=== PATIENT | female | born 1945 | race Caucasian/White ===

== ENCOUNTER → 2017-04-25 | Outpatient (CLI) | payer OTHER ==
[~2017-04-25] MED LIST: ACET325 PO; ACIDOPHILUS1 EAC1 PO; ALBU3IS INH; ALBU90OI INH; ALBU90OI61 INH; ALIS150T PO; AMIT10 PO; AMLO10 PO; AMLO5 PO; AMOCLA875 PO; ASPI325EC; ASPI81CH PO; ATEN100 PO; ATEN25 PO; ATEN50; ATEN50 PO; ATOR10; ATOR40TA PO; ATOR80 PO; Augmentin 875-1 EACH PO; B-12500 MCG PO; BACITO TOP; Bactrim Ds Tab1 EACH PO; CALCAVITD PO; CARI350 PO; CARV3.125 PO; CEPH500 PO; CHOL10002 PO; CLON.1; CLON.1 PO; CLON.2 PO; CLOP75; CLOP75 PO; CYAN1000 PO; CYAN500 PO; CYCL10 PO; Cilostazol50 MG PO; DILT120; DILT240 PO; DOCU100 PO; DULERA 200 MCG/13 GM INH; ERGO50000 PO; ESCI5 PO; ESOM20; FENTANYL PATCH TOP; FOLI1 PO; FURO20 PO; Ferrous Sulfat325 MG PO; GABA300; GABA600 PO; GAVILAX17 GM PO; HUMALOG KW200 UNIT/1 SC; HYDACE10B PO; HYDACE5; HYDACE5 PO; HYDR1TAB94 PO; K-Dur10 MEQ PO; LOSA25 PO; LOSA50 PO; MAGNESIUM GLUCONATE PO; META800 PO; METAMUCIL660 GM PO; METF500; METF500 PO; METO25 PO; METO25ER PO; NAPR500 PO; NARCAN4 MG; NEBI10 PO; NICO14TP TOP; NITR.2TP TOP; NITR.4SL SL; Norco 5-325 Ta1 EACH PO; Nystatin15 GM TOP; ONDA4ODT MM; OXYC10ER PO; OXYC10TA19 PO; OXYC5; OXYC5 PO; PANT40 PO; PENVK500 PO; POTCHL10ER PO; POTCHL20ER PO; QUIN10; ROSU10TA PO; SANTYL30 GM TOP; SENN187 PO; SOMA250 MG; TICA90TA PO; TIOT18 IH; TIOT18 INH; TORSE20 PO; TRAM50 PO; TRIBENZOR PO; Tylenol325 MG PO; VALS80; VALS80 PO; VIT D3 PO; VITA25000 PO; Ventolin Soln3 ML INH; XARELTO15 MG PO; Zanaflex2 M1 PO
[2017-04-25 17:18] LABS: BASOPHILS ABSOLUTE AUTO 0.03 K/mm3 (0.00-0.23); BASOPHILS PERCENT AUTO 0 % (0-2); EOSINOPHILS ABSOLUTE AUTO 0.11 K/mm3 (0.00-0.68); EOSINOPHILS PERCENT AUTO 1 % (0-6); Hematocrit 36.5 % (33.0-51.0); IMMATURE GRAN ABSOLUTE AUTO 0.03 K/mm3 (0.00-0.10); IMMATURE GRAN PERCENT AUTO 0 % (0-1); LYMPHOCYTES ABSOLUTE AUTO 1.49 K/mm3 (0.84-5.20); LYMPHOCYTES PERCENT AUTO 17 % (21-46); MONOCYTES ABSOLUTE AUTO 0.64 K/mm3 (0.16-1.47); MONOCYTES PERCENT AUTO 7 % (4-13); Mean Corpuscular HGB 34.2 pg (26.0-34.0); Mean Corpuscular HGB Conc 32.9 g/dL (31.5-36.5); Mean Corpuscular Volume 104 fL (80-100); NEUTROPHILS ABSOLUTE AUTO 6.54 K/mm3 (1.96-9.15); NEUTROPHILS PERCENT AUTO 74 % (41-73); Platelet Count 328 K/mm3 (150-400); RDW Coefficient Variation 12.3 % (11.7-14.2); RDW Standard Deviation 47.1 fL (35.1-46.3); Red Blood Cell Count 3.51 M/mm3 (3.80-5.20); White Blood Cell Count 8.84 K/mm3 (4.00-11.30)
[2017-04-25 18:15] LABS: Alanine Aminotransfer (ALT/SGP 14 U/L (12-78); Albumin, Blood 3.9 g/dL (3.4-5.0); Albumin/Globulin Ratio 1.1 (0.8-1.8); Alk Phos 54 U/L (50-136); Anion Gap 10 mmol/L (6-16); Aspartate Aminotrans (AST/SGOT 14 U/L (12-37); Bilirubin, Total 0.3 mg/dL (0.1-1.0); Blood Urea Nitrogen 18 mg/dL (8-24); Bun/Creatinine Ratio 30.6 (12.0-20.0); CO2, Blood 25 mmol/L (21-32); Calcium, Blood 9.6 mg/dL (8.5-10.1); Chloride, Blood 105 mmol/L (98-108); Creatinine, Blood 0.59 mg/dL (0.40-1.00); Globulin, Blood 3.5 g/dL (2.2-4.0); Glomerular Filtration Rate >60 (60-); Glucose, Blood 101 mg/dL (70-99); Potassium, Blood 3.9 mmol/L (3.5-5.5); Sodium, Blood 140 mmol/L (136-145); Total Protein, Blood 7.4 g/dL (6.4-8.2)
== END | disposition home or self-care (01) ==
LOC: LAB SHORT 16:36
PROVIDERS: Nurse Practitioner Primary Care
DX: E11.59 Type 2 diabetes mellitus with other circulatory complications (principal); R30.0 Dysuria; R31.9 Hematuria, unspecified
CPT/HCPCS: 80053; 82043; 83036; 85025; 87086

== ENCOUNTER → 2017-07-04 | Outpatient (CLI) | payer OTHER ==
[~2017-07-04] MED LIST changes: -ACIDOPHILUS1 EAC1 PO; -ALBU3IS INH; -ALBU90OI61 INH; -Augmentin 875-1 EACH PO; -B-12500 MCG PO; -ESCI5 PO; -FENTANYL PATCH TOP; +FERR325 PO; -Ferrous Sulfat325 MG PO; -GABA600 PO; -GAVILAX17 GM PO; -HUMALOG KW200 UNIT/1 SC; -METAMUCIL660 GM PO; -METO25 PO; -NARCAN4 MG; -Nystatin15 GM TOP; -ONDA4ODT MM; -POTCHL20ER PO; -SANTYL30 GM TOP; -SENN187 PO; -XARELTO15 MG PO; -Zanaflex2 M1 PO
== END ==
LOC: LAB SHORT 18:05 → LAB 18:05
DX: Z47.81 Encounter for orthopedic aftercare following surgical amputation (principal); Z89.432 Acquired absence of left foot
CPT/HCPCS: 87070; 87077; 87186; 87205

== ENCOUNTER 2017-07-16 06:57 | Inpatient (IN) | payer OTHER ==
[~2017-07-16] VITALS: Ht 160 cm; Wt 60.7 kg
[~2017-07-16 06:57] MED LIST changes: +ALBU3IS INH; +ALBU90OI61 INH; +B-12500 MCG PO; -FERR325 PO; +Ferrous Sulfat325 MG PO; +GABA400 PO; +NARCAN4 MG
[2017-07-16] MEDS ORDERED: Augmentin 875-1 EACH PO (07:34)
[2017-07-17 04:51] LABS: Anion Gap 9 mmol/L (6-16); Blood Urea Nitrogen 7 mg/dL (8-24); Bun/Creatinine Ratio 13.3 (12.0-20.0); CO2, Blood 26 mmol/L (21-32); Calcium, Blood 8.2 mg/dL (8.5-10.1); Chloride, Blood 104 mmol/L (98-108); Creatinine, Blood 0.53 mg/dL (0.40-1.00); Glomerular Filtration Rate >60 (60-); Glucose, Blood 94 mg/dL (70-99); Potassium, Blood 3.9 mmol/L (3.5-5.5); Sodium, Blood 139 mmol/L (136-145)
[2017-07-17 05:44] LABS: BASOPHILS ABSOLUTE AUTO 0.02 K/mm3 (0.00-0.23); BASOPHILS PERCENT AUTO 0 % (0-2); EOSINOPHILS ABSOLUTE AUTO 0.06 K/mm3 (0.00-0.68); EOSINOPHILS PERCENT AUTO 1 % (0-6); Hemoglobin 10.2 g/dL (11.5-16.0); IMMATURE GRAN ABSOLUTE AUTO 0.02 K/mm3 (0.00-0.10); IMMATURE GRAN PERCENT AUTO 0 % (0-1); LYMPHOCYTES ABSOLUTE AUTO 0.87 K/mm3 (0.84-5.20); LYMPHOCYTES PERCENT AUTO 11 % (21-46); MONOCYTES ABSOLUTE AUTO 0.44 K/mm3 (0.16-1.47); MONOCYTES PERCENT AUTO 6 % (4-13); Mean Corpuscular HGB 32.6 pg (26.0-34.0); Mean Corpuscular HGB Conc 30.9 g/dL (31.5-36.5); Mean Corpuscular Volume 105 fL (80-100); Mean Platelet Volume 9.1 fL (9.1-12.4); NEUTROPHILS ABSOLUTE AUTO 6.38 K/mm3 (1.96-9.15); NEUTROPHILS PERCENT AUTO 82 % (41-73); Platelet Count 256 K/mm3 (150-400); RDW Coefficient Variation 12.8 % (11.7-14.2); RDW Standard Deviation 49.4 fL (35.1-46.3); Red Blood Cell Count 3.13 M/mm3 (3.80-5.20); White Blood Cell Count 7.79 K/mm3 (4.00-11.30)
[2017-07-17 06:04] LABS: Alanine Aminotransfer (ALT/SGP 15 U/L (12-78); Albumin, Blood 3.2 g/dL (3.4-5.0); Albumin/Globulin Ratio 0.9 (0.8-1.8); Alk Phos 57 U/L (50-136); Anion Gap 9 mmol/L (6-16); Aspartate Aminotrans (AST/SGOT 32 U/L (12-37); Bilirubin, Total 0.3 mg/dL (0.1-1.0); Blood Urea Nitrogen 6 mg/dL (8-24); Bun/Creatinine Ratio 10.6 (12.0-20.0); CO2, Blood 27 mmol/L (21-32); Calcium, Blood 8.8 mg/dL (8.5-10.1); Chloride, Blood 104 mmol/L (98-108); Creatinine, Blood 0.56 mg/dL (0.40-1.00); Globulin, Blood 3.7 g/dL (2.2-4.0); Glomerular Filtration Rate >60 (60-); Glucose, Blood 100 mg/dL (70-99); Sodium, Blood 140 mmol/L (136-145); Total Protein, Blood 6.9 g/dL (6.4-8.2)
[2017-07-19 04:40] LABS: BASOPHILS ABSOLUTE AUTO 0.02 K/mm3 (0.00-0.23); BASOPHILS PERCENT AUTO 0 % (0-2); EOSINOPHILS PERCENT AUTO 3 % (0-6); Hemoglobin 8.5 g/dL (11.5-16.0); IMMATURE GRAN ABSOLUTE AUTO 0.04 K/mm3 (0.00-0.10); IMMATURE GRAN PERCENT AUTO 1 % (0-1); LYMPHOCYTES ABSOLUTE AUTO 1.13 K/mm3 (0.84-5.20); LYMPHOCYTES PERCENT AUTO 16 % (21-46); MONOCYTES ABSOLUTE AUTO 0.71 K/mm3 (0.16-1.47); MONOCYTES PERCENT AUTO 10 % (4-13); Mean Corpuscular HGB 32.2 pg (26.0-34.0); Mean Corpuscular HGB Conc 31.5 g/dL (31.5-36.5); Mean Platelet Volume 9.5 fL (9.1-12.4); NEUTROPHILS ABSOLUTE AUTO 4.98 K/mm3 (1.96-9.15); NEUTROPHILS PERCENT AUTO 70 % (41-73); Platelet Count 232 K/mm3 (150-400); RDW Coefficient Variation 12.9 % (11.7-14.2); RDW Standard Deviation 48.6 fL (35.1-46.3); Red Blood Cell Count 2.64 M/mm3 (3.80-5.20); White Blood Cell Count 7.08 K/mm3 (4.00-11.30)
[2017-07-19 05:00] LABS: Anion Gap 7 mmol/L (6-16); Blood Urea Nitrogen 9 mg/dL (8-24); Bun/Creatinine Ratio 16.8 (12.0-20.0); CO2, Blood 31 mmol/L (21-32); Calcium, Blood 8.5 mg/dL (8.5-10.1); Chloride, Blood 103 mmol/L (98-108); Creatinine, Blood 0.54 mg/dL (0.40-1.00); Glomerular Filtration Rate >60 (60-); Glucose, Blood 122 mg/dL (70-99); Potassium, Blood 3.4 mmol/L (3.5-5.5); Sodium, Blood 141 mmol/L (136-145)
[2017-07-19 05:03] LABS: Mean Corpuscular Volume 102 fL (80-100)
[2017-07-20 04:53] LABS: Hematocrit 27.3 % (33.0-51.0); Hemoglobin 8.5 g/dL (11.5-16.0); Mean Corpuscular HGB 32.4 pg (26.0-34.0); Mean Corpuscular HGB Conc 31.1 g/dL (31.5-36.5); Mean Corpuscular Volume 104 fL (80-100); Mean Platelet Volume 9.1 fL (9.1-12.4); Platelet Count 247 K/mm3 (150-400); RDW Standard Deviation 48.7 fL (35.1-46.3); Red Blood Cell Count 2.62 M/mm3 (3.80-5.20)
[2017-07-20 05:11] LABS: Anion Gap 6 mmol/L (6-16); Blood Urea Nitrogen 12 mg/dL (8-24); Bun/Creatinine Ratio 17.2 (12.0-20.0); CO2, Blood 35 mmol/L (21-32); Calcium, Blood 8.6 mg/dL (8.5-10.1); Chloride, Blood 100 mmol/L (98-108); Glomerular Filtration Rate >60 (60-); Glucose, Blood 113 mg/dL (70-99); Potassium, Blood 3.5 mmol/L (3.5-5.5); Sodium, Blood 141 mmol/L (136-145)
[2017-07-20 05:44] LABS: Percent Saturation 7.1 % (15.0-50.0)
[2017-07-23 05:27] LABS: BASOPHILS ABSOLUTE AUTO 0.05 K/mm3 (0.00-0.23); BASOPHILS PERCENT AUTO 0 % (0-2); EOSINOPHILS ABSOLUTE AUTO 0.24 K/mm3 (0.00-0.68); EOSINOPHILS PERCENT AUTO 2 % (0-6); Hematocrit 31.3 % (33.0-51.0); Hemoglobin 9.8 g/dL (11.5-16.0); IMMATURE GRAN ABSOLUTE AUTO 0.08 K/mm3 (0.00-0.10); IMMATURE GRAN PERCENT AUTO 1 % (0-1); LYMPHOCYTES ABSOLUTE AUTO 1.87 K/mm3 (0.84-5.20); LYMPHOCYTES PERCENT AUTO 16 % (21-46); MONOCYTES ABSOLUTE AUTO 0.96 K/mm3 (0.16-1.47); MONOCYTES PERCENT AUTO 8 % (4-13); Mean Corpuscular HGB 31.5 pg (26.0-34.0); Mean Corpuscular HGB Conc 31.3 g/dL (31.5-36.5); NEUTROPHILS ABSOLUTE AUTO 8.82 K/mm3 (1.96-9.15); NEUTROPHILS PERCENT AUTO 73 % (41-73); Platelet Count 336 K/mm3 (150-400); RDW Standard Deviation 48.1 fL (35.1-46.3); Red Blood Cell Count 3.11 M/mm3 (3.80-5.20); White Blood Cell Count 12.02 K/mm3 (4.00-11.30)
[2017-07-23 05:28] LABS: Mean Corpuscular Volume 101 fL (80-100)
[2017-07-23 05:32] LABS: Anion Gap 8 mmol/L (6-16); Blood Urea Nitrogen 20 mg/dL (8-24); Bun/Creatinine Ratio 22.4 (12.0-20.0); CO2, Blood 32 mmol/L (21-32); Calcium, Blood 9.2 mg/dL (8.5-10.1); Chloride, Blood 98 mmol/L (98-108); Creatinine, Blood 0.89 mg/dL (0.40-1.00); Glomerular Filtration Rate >60 (60-); Glucose, Blood 96 mg/dL (70-99); Potassium, Blood 3.6 mmol/L (3.5-5.5); Sodium, Blood 138 mmol/L (136-145)
[2017-07-24] MEDS ORDERED: METO25 PO (14:46)
[2017-07-24] MEDS ORDERED: ESCI5 PO (14:48)
[2017-07-24] MEDS ORDERED: ATOR80 PO (14:48)
[2017-07-24] MEDS ORDERED: ACIDOPHILUS1 EAC1 PO (14:48)
[2017-07-24] MEDS ORDERED: METAMUCIL660 GM PO (14:49)
[2017-07-24] MEDS ORDERED: XARELTO15 MG PO (14:49)
== END 2017-07-24 14:44 | DRG 272 ==
LOC: MHTC 06:57 → ICUW 12:34 → MHTC 12:34 → ICUW 07-17 12:48 → MEDS 07-20 13:21
PROVIDERS: Hospitalist; Internal Medicine; Internal Medicine Interventional Cardiology
PROC: 04CL3ZZ Extirpation of Matter from Left Femoral Artery, Percutaneous Approach (ICD-10-PCS; principal; 2017-07-16)
PROC: 047D34Z Dilation of Left Common Iliac Artery with Drug-eluting Intraluminal Device, Percutaneous Approach (ICD-10-PCS; 2017-07-16)
PROC: 04CU3ZZ Extirpation of Matter from Left Peroneal Artery, Percutaneous Approach (ICD-10-PCS; 2017-07-16)
PROC: 04CY3ZZ Extirpation of Matter from Lower Artery, Percutaneous Approach (ICD-10-PCS; 2017-07-16)
PROC: 047L34Z Dilation of Left Femoral Artery with Drug-eluting Intraluminal Device, Percutaneous Approach (ICD-10-PCS; 2017-07-16)
PROC: 047C3ZZ Dilation of Right Common Iliac Artery, Percutaneous Approach (ICD-10-PCS; 2017-07-16)
PROC: B41GZZZ Fluoroscopy of Left Lower Extremity Arteries (ICD-10-PCS; 2017-07-16)
DX: I87.2 Venous insufficiency (chronic) (peripheral) (principal); I73.9 Peripheral vascular disease, unspecified; J44.9 Chronic obstructive pulmonary disease, unspecified; D63.8 Anemia in other chronic diseases classified elsewhere; F32.9 Major depressive disorder, single episode, unspecified; E78.5 Hyperlipidemia, unspecified; I12.9 Hypertensive chronic kidney disease with stage 1 through stage 4 chronic kidney disease, or unspecified chronic kidney disease; N18.9 Chronic kidney disease, unspecified; Z86.73 Personal history of transient ischemic attack (TIA), and cerebral infarction without residual deficits; E87.6 Hypokalemia; I25.10 Atherosclerotic heart disease of native coronary artery without angina pectoris; I99.8 Other disorder of circulatory system; I73.00 Raynaud's syndrome without gangrene; D50.9 Iron deficiency anemia, unspecified
CPT/HCPCS: 36140; 36415; 37186; 37221; 37227; 37229; 37232; 37233; 70450; 73552; 73590; 75625; 75710; 75774; 76937; 80048; 80053; 82728; 82947; 83540; 83550; 85025; 85027; 85347; 93005; 93010; 94640; 94760; 96361; 96374; 96375; 96376; 97110; 97116; 97162; 97165; 97530; 99152; 99153; C1714; C1725; C1757; C1769; C1874; C1876; C1884; C1885; C1887; C1894; G0378; G8978; G8979; G8987; G8988; J0690; J1170; J1644; J1885; J1940; J2250; J2720; J3010; J3360; J7030; J7040; Q9967

== ENCOUNTER 2017-10-24 13:40 | Emergency (ER) | payer OTHER ==
[~2017-10-24] VITALS: Ht 162.6 cm; Wt 60.8 kg
[~2017-10-24 13:40] MED LIST changes: +ACIDOPHILUS1 EAC1 PO; +Augmentin 875-1 EACH PO; +ESCI5 PO; +METAMUCIL660 GM PO; +METO25 PO; +XARELTO15 MG PO
[2017-10-24 14:35] LABS: BASOPHILS ABSOLUTE AUTO 0.04 K/mm3 (0.00-0.23); BASOPHILS PERCENT AUTO 0 % (0-2); EOSINOPHILS ABSOLUTE AUTO 0.06 K/mm3 (0.00-0.68); EOSINOPHILS PERCENT AUTO 1 % (0-6); Hematocrit 34.8 % (33.0-51.0); Hemoglobin 11.1 g/dL (11.5-16.0); IMMATURE GRAN ABSOLUTE AUTO 0.04 K/mm3 (0.00-0.10); IMMATURE GRAN PERCENT AUTO 0 % (0-1); LYMPHOCYTES ABSOLUTE AUTO 1.55 K/mm3 (0.84-5.20); LYMPHOCYTES PERCENT AUTO 12 % (21-46); MONOCYTES ABSOLUTE AUTO 0.93 K/mm3 (0.16-1.47); MONOCYTES PERCENT AUTO 7 % (4-13); Mean Corpuscular HGB 32.4 pg (26.0-34.0); Mean Corpuscular HGB Conc 31.9 g/dL (31.5-36.5); Mean Corpuscular Volume 102 fL (80-100); Mean Platelet Volume 10.3 fL (9.1-12.4); NEUTROPHILS ABSOLUTE AUTO 10.51 K/mm3 (1.96-9.15); NEUTROPHILS PERCENT AUTO 80 % (41-73); Platelet Count 262 K/mm3 (150-400); RDW Coefficient Variation 12.8 % (11.7-14.2); RDW Standard Deviation 47.6 fL (35.1-46.3); Red Blood Cell Count 3.43 M/mm3 (3.80-5.20); White Blood Cell Count 13.13 K/mm3 (4.00-11.30)
[2017-10-24 14:57] LABS: Anion Gap 7 mmol/L (6-16); Blood Urea Nitrogen 32 mg/dL (8-24); Bun/Creatinine Ratio 39.1 (12.0-20.0); CO2, Blood 30 mmol/L (21-32); Calcium, Blood 9.3 mg/dL (8.5-10.1); Chloride, Blood 106 mmol/L (98-108); Creatinine, Blood 0.82 mg/dL (0.40-1.00); Glomerular Filtration Rate >60 (60-); Glucose, Blood 134 mg/dL (70-99); Potassium, Blood 3.7 mmol/L (3.5-5.5); Sodium, Blood 143 mmol/L (136-145)
[2017-10-24 15:26] LABS: Source, Urine Clean Catch
[2017-10-24 15:28] LABS: Appearance, Urine Clear (Clear); Bilirubin, Urine Neg (Neg); Blood, Urine Neg (Neg); Color, Urine Yellow (P-Yellow); Glucose Qualitative, Urine Neg (Neg); Ketones, Urine Neg (Neg); Leukocyte Esterase, Urine Neg (Neg); Nitrite, Urine Neg (Neg); Protein, Urine Neg (Neg); Urobilinogen, Urine NORM (Normal)
== END 2017-10-24 17:36 | disposition home or self-care (01) ==
LOC: ER 13:40
PROVIDERS: Emergency Medicine
DX: F41.9 Anxiety disorder, unspecified (principal); G89.29 Other chronic pain; R53.1 Weakness; I10 Essential (primary) hypertension; Z88.5 Allergy status to narcotic agent; Z88.8 Allergy status to other drugs, medicaments and biological substances; Z79.899 Other long term (current) drug therapy; Z86.73 Personal history of transient ischemic attack (TIA), and cerebral infarction without residual deficits; Z87.891 Personal history of nicotine dependence
CPT/HCPCS: 36415; 71046; 80048; 81003; 85025; 93005; 93010; 99285-25; J7030; P9612

== ENCOUNTER 2017-11-15 03:36 | Emergency (ER) | payer OTHER ==
[~2017-11-15] VITALS: Ht 162.6 cm; Wt 59.0 kg
[2017-11-15 04:09] LABS: BASOPHILS ABSOLUTE AUTO 0.04 K/mm3 (0.00-0.23); BASOPHILS PERCENT AUTO 0 % (0-2); EOSINOPHILS ABSOLUTE AUTO 0.16 K/mm3 (0.00-0.68); EOSINOPHILS PERCENT AUTO 1 % (0-6); Hematocrit 32.9 % (33.0-51.0); Hemoglobin 10.4 g/dL (11.5-16.0); IMMATURE GRAN ABSOLUTE AUTO 0.05 K/mm3 (0.00-0.10); IMMATURE GRAN PERCENT AUTO 0 % (0-1); LYMPHOCYTES PERCENT AUTO 16 % (21-46); MONOCYTES ABSOLUTE AUTO 1.09 K/mm3 (0.16-1.47); MONOCYTES PERCENT AUTO 8 % (4-13); Mean Corpuscular HGB 31.7 pg (26.0-34.0); Mean Corpuscular HGB Conc 31.6 g/dL (31.5-36.5); Mean Corpuscular Volume 100 fL (80-100); Mean Platelet Volume 9.8 fL (9.1-12.4); NEUTROPHILS PERCENT AUTO 74 % (41-73); Platelet Count 219 K/mm3 (150-400); RDW Coefficient Variation 12.9 % (11.7-14.2); RDW Standard Deviation 46.5 fL (35.1-46.3); Red Blood Cell Count 3.28 M/mm3 (3.80-5.20); White Blood Cell Count 12.94 K/mm3 (4.00-11.30)
[2017-11-15] MEDS ORDERED: SANTYL30 GM TOP (04:12)
[2017-11-15] MEDS ORDERED: DULERA 200 MCG/13 GM INH (04:13)
[2017-11-15] MEDS ORDERED: ONDA4ODT MM (04:13)
[2017-11-15] MEDS ORDERED: Zanaflex2 M1 PO (04:14)
[2017-11-15 04:31] LABS: Alanine Aminotransfer (ALT/SGP 15 U/L (12-78); Albumin, Blood 3.1 g/dL (3.4-5.0); Albumin/Globulin Ratio 0.7 (0.8-1.8); Alk Phos 52 U/L (50-136); Anion Gap 8 mmol/L (6-16); Aspartate Aminotrans (AST/SGOT 17 U/L (12-37); Bilirubin, Total 0.3 mg/dL (0.1-1.0); Blood Urea Nitrogen 14 mg/dL (8-24); Bun/Creatinine Ratio 16.5 (12.0-20.0); CO2, Blood 28 mmol/L (21-32); Calcium, Blood 8.5 mg/dL (8.5-10.1); Chloride, Blood 105 mmol/L (98-108); Creatinine, Blood 0.85 mg/dL (0.40-1.00); Globulin, Blood 4.2 g/dL (2.2-4.0); Glomerular Filtration Rate >60 (60-); Glucose, Blood 126 mg/dL (70-99); Sodium, Blood 141 mmol/L (136-145); Total Protein, Blood 7.3 g/dL (6.4-8.2); Troponin I <0.015 ng/mL (0.000-0.040)
== END 2017-11-15 06:16 | disposition home or self-care (01) ==
LOC: ER 03:36
PROVIDERS: Emergency Medicine
DX: J44.9 Chronic obstructive pulmonary disease, unspecified (principal); Z88.5 Allergy status to narcotic agent; Z88.8 Allergy status to other drugs, medicaments and biological substances; Z79.899 Other long term (current) drug therapy; Z86.73 Personal history of transient ischemic attack (TIA), and cerebral infarction without residual deficits; I10 Essential (primary) hypertension; Z87.891 Personal history of nicotine dependence
CPT/HCPCS: 36415; 71046; 80053; 83880; 84484; 85025; 93005; 93010; 94640; 99285-25

== ENCOUNTER 2018-06-28 19:32 | Observation (INO) | payer OTHER ==
[~2018-06-28] VITALS: Ht 165.1 cm; Wt 68.0 kg
[~2018-06-28 19:32] MED LIST changes: +FENTANYL PATCH TOP; -GABA400 PO; +GABA600 PO; +GAVILAX17 GM PO; +HUMALOG KW200 UNIT/1 SC; +Nystatin15 GM TOP; +ONDA4ODT MM; +POTCHL20ER PO; +SANTYL30 GM TOP; +SENN187 PO; +Zanaflex2 M1 PO
[2018-06-28 20:18] LABS: Source, Urine Catheter
[2018-06-28 20:24] LABS: Bilirubin, Urine Neg (Neg); Blood, Urine Neg (Neg); Glucose Qualitative, Urine Neg (Neg); Ketones, Urine Neg (Neg); Leukocyte Esterase, Urine Neg (Neg); Nitrite, Urine Neg (Neg); Protein, Urine Neg (Neg); Specific Gravity, Urine 1.015 (1.003-1.022); Urobilinogen, Urine NORM (Normal)
[2018-06-28 20:25] LABS: pH Blood Arterial 7.37 (7.35-7.45)
[2018-06-28 20:26] LABS: PCO2 Arterial 52.8 mmHg (35-45)
[2018-06-28 20:38] LABS: BASOPHILS ABSOLUTE AUTO 0.02 K/mm3 (0.00-0.23); BASOPHILS PERCENT AUTO 0 % (0-2); EOSINOPHILS ABSOLUTE AUTO 0.17 K/mm3 (0.00-0.68); EOSINOPHILS PERCENT AUTO 2 % (0-6); Hematocrit 34.7 % (33.0-51.0); IMMATURE GRAN ABSOLUTE AUTO 0.03 K/mm3 (0.00-0.10); IMMATURE GRAN PERCENT AUTO 0 % (0-1); LYMPHOCYTES ABSOLUTE AUTO 2.08 K/mm3 (0.84-5.20); LYMPHOCYTES PERCENT AUTO 29 % (21-46); MONOCYTES ABSOLUTE AUTO 0.91 K/mm3 (0.16-1.47); MONOCYTES PERCENT AUTO 13 % (4-13); Mean Corpuscular HGB Conc 31.7 g/dL (31.5-36.5); Mean Corpuscular Volume 101 fL (80-100); Mean Platelet Volume 10.1 fL (9.1-12.4); NEUTROPHILS ABSOLUTE AUTO 3.89 K/mm3 (1.96-9.15); NEUTROPHILS PERCENT AUTO 55 % (41-73); Platelet Count 252 K/mm3 (150-400); RDW Coefficient Variation 13.1 % (11.7-14.2); RDW Standard Deviation 48.4 fL (35.1-46.3); Red Blood Cell Count 3.44 M/mm3 (3.80-5.20)
[2018-06-28] MEDS ORDERED: CHOL10002 PO (20:38)
[2018-06-28 20:40] LABS: Appearance, Urine Clear (Clear); Color, Urine Yellow (P-Yellow)
[2018-06-28] MEDS ORDERED: DULERA 200 MCG/13 GM INH (20:42)
[2018-06-28] MEDS ORDERED: GABA600 PO (20:44)
[2018-06-28 21:00] LABS: Alanine Aminotransfer (ALT/SGP 17 U/L (12-78); Albumin, Blood 3.4 g/dL (3.4-5.0); Albumin/Globulin Ratio 0.8 (0.8-1.8); Alk Phos 61 U/L (50-136); Anion Gap 6 mmol/L (6-16); Aspartate Aminotrans (AST/SGOT 28 U/L (12-37); Bilirubin, Total 0.3 mg/dL (0.1-1.0); Blood Urea Nitrogen 25 mg/dL (8-24); Bun/Creatinine Ratio 33.1 (12.0-20.0); CO2, Blood 31 mmol/L (21-32); Calcium, Blood 9.1 mg/dL (8.5-10.1); Chloride, Blood 103 mmol/L (98-108); Creatinine, Blood 0.76 mg/dL (0.40-1.00); Glomerular Filtration Rate >60 (60-); Glucose, Blood 106 mg/dL (70-99); Potassium, Blood 5.2 mmol/L (3.5-5.5); Sodium, Blood 140 mmol/L (136-145); Total Protein, Blood 7.4 g/dL (6.4-8.2)
[2018-06-29] MEDS ORDERED: CVS DISPOSABLE399 ML PR (00:16)
[2018-06-29] MEDS ORDERED: Suppository1 EACH PR (00:19)
--- NOTE | 2018-06-29 05:31 | NUR ---
NOC SHIFT SUMMARY PT IS ORIENTED TO SELF AND FAMILY. DAUGHTER ACCOMPANIED PT TO ROOM AND HELPED WITH INTAKE. SHE WAS ADMITTED FOR ALTERED MENTAL STATUS STARTING 06/27. PER DAUGHTER SHE MAY HAVE TAKEN TOO MANY OPIATES. THERE WAS A FENTANYL PATCH ON HER WHICH I REMOVED. TELE SHOWS SR. THOUGH SHE IS CONFUSED SHE IS PLEASANT. SHE IS CURRENTLY SLEEPING. APPEARS IN NO ACUTE DISTRESS. WILL CONTINUE TO MONITOR.
[2018-06-29 05:35] LABS: Anion Gap 7 mmol/L (6-16); Blood Urea Nitrogen 23 mg/dL (8-24); Bun/Creatinine Ratio 34.1 (12.0-20.0); CO2, Blood 28 mmol/L (21-32); Calcium, Blood 8.7 mg/dL (8.5-10.1); Chloride, Blood 105 mmol/L (98-108); Creatinine, Blood 0.67 mg/dL (0.40-1.00); Glomerular Filtration Rate >60 (60-); Glucose, Blood 111 mg/dL (70-99); Sodium, Blood 140 mmol/L (136-145)
[2018-06-29 05:48] LABS: BASOPHILS ABSOLUTE AUTO 0.03 K/mm3 (0.00-0.23); BASOPHILS PERCENT AUTO 1 % (0-2); EOSINOPHILS ABSOLUTE AUTO 0.14 K/mm3 (0.00-0.68); EOSINOPHILS PERCENT AUTO 2 % (0-6); Hematocrit 35.1 % (33.0-51.0); Hemoglobin 11.2 g/dL (11.5-16.0); IMMATURE GRAN ABSOLUTE AUTO 0.07 K/mm3 (0.00-0.10); IMMATURE GRAN PERCENT AUTO 1 % (0-1); LYMPHOCYTES ABSOLUTE AUTO 1.89 K/mm3 (0.84-5.20); LYMPHOCYTES PERCENT AUTO 30 % (21-46); MONOCYTES ABSOLUTE AUTO 0.86 K/mm3 (0.16-1.47); MONOCYTES PERCENT AUTO 14 % (4-13); Mean Corpuscular HGB Conc 31.9 g/dL (31.5-36.5); Mean Corpuscular Volume 100 fL (80-100); Mean Platelet Volume 10.5 fL (9.1-12.4); NEUTROPHILS ABSOLUTE AUTO 3.35 K/mm3 (1.96-9.15); NEUTROPHILS PERCENT AUTO 53 % (41-73); Platelet Count 187 K/mm3 (150-400); RDW Coefficient Variation 13.1 % (11.7-14.2); RDW Standard Deviation 48.3 fL (35.1-46.3); White Blood Cell Count 6.34 K/mm3 (4.00-11.30)
--- NOTE | 2018-06-29 17:52 | NUR ---
PT HAS BEEN AOX2 WITH A LOT OF CONFUSION AND HALUCINATIONS THROUGHOUT THE DAY. PT GETS CONFUSED ABOUT WHICH DAUGHTER IS IN THE ROOM WITH HER AND IS VERBALLY UNKIND. DAUGHTERS STATE THIS IS NOT NORMAL BEHAVIOR. PT WILL CRY OUT BEING CARED FOR OR GET UPSET STATING SHE IS BEING HURT. PT CAN BE REDIRECTED, BUT SEEMS TO BE UNABLE TO RELAX AT THIS TIME. PT PULLED IV AND KEEPS TAKING HER O2 OFF AND ON. WILL CONTINUE TO MONITOR.
--- NOTE | 2018-06-29 22:33 | NUR ---
PT PULLED OUT IV ON PREVIOUS SHIFT. SHE REFUSES TO ALLOW PLACEMENT OF NEW IV. SPOKE WITH BOTH DAUGHTERS AND THEY DO NOT WANT PT PLACED IN RESTRAINTS. CALLED TO PCU MONITOR AND PT IS SR IN THE 70'S HAD SOME PVC'S ON DAY SHIFT BUT PRESENTLY NONE. CALLED TO DR. PATEL RECIEVED OK TO LEAVE OUT IV AND ORDER TO DC TELE. AND OBTAINED ORDER TO SUKHI BLACK.
--- NOTE | 2018-06-30 06:37 | NUR ---
NOC SHIFT SUMMARY PT HAS BEEN MOSTLY PLEASANT AND COOPERATIVE WITH CARE. CAN BECOME GRUMPY AT TIMES. MUCH MORE AAO SINCE LAST NIGHT. ABLE TO ANSWERE QUESTIONS FOR ME APPROPRIATELY. SHE HAS SLEPT MUCH OF NIGHT. VSS. SHE DID PULL OUT HER IV ON PREVIOUS SHIFT AND REFUSED TO ALLOW ANYONE TO PLACE ANOTHER, JERKING HAND BACK AND RESISTING PLACEMENT. BOTH DAUGHTERS VERBALIZED TO ME THAT THEY DID NOT WANT HER TO BE PLACED IN RESTRAINTS. CALLED TO HOSPITALIST AND RECIEVED ORDER TO DC TELE. CURRENTLY PT APPEARS IN NO ACUTE DISTRESS. WILL CONTINUE TO MONITOR.
[2018-06-30] MEDS ORDERED: FENT50TP TOP (16:26)
--- NOTE | 2018-06-30 17:27 | NUR ---
PATIENT TRANSFER THE PATIENT WAS TRANSFERRED TO [facility] AT 1700, AFTER REPORT WAS CALLED TO AMELIA MADDOX. THE PATIENT LEFT THE [facility]SPITAL VIA WHEEL CHAIR.
== END 2018-06-30 17:02 ==
LOC: ER 19:32 → MEDS 19:33 → ENPENDDIS 06-30 15:49 → MEDS 06-30 17:02
PROVIDERS: Emergency Medicine; ADMIT Internal Medicine
DX: G92 Toxic encephalopathy (principal); T40.605A Adverse effect of unspecified narcotics, initial encounter; I10 Essential (primary) hypertension; I25.10 Atherosclerotic heart disease of native coronary artery without angina pectoris; G89.4 Chronic pain syndrome; M79.7 Fibromyalgia; M54.9 Dorsalgia, unspecified; J44.9 Chronic obstructive pulmonary disease, unspecified; J96.11 Chronic respiratory failure with hypoxia; I25.2 Old myocardial infarction; I73.9 Peripheral vascular disease, unspecified; F32.9 Major depressive disorder, single episode, unspecified; E78.5 Hyperlipidemia, unspecified; Z86.73 Personal history of transient ischemic attack (TIA), and cerebral infarction without residual deficits; Z79.899 Other long term (current) drug therapy; Z88.5 Allergy status to narcotic agent; Z79.4 Long term (current) use of insulin; Z88.8 Allergy status to other drugs, medicaments and biological substances; Z87.891 Personal history of nicotine dependence; Z99.81 Dependence on supplemental oxygen; Z96.651 Presence of right artificial knee joint
CPT/HCPCS: 36415; 36600; 71045; 80048; 80053; 81003; 82803; 82947; 85025; 93005; 93010; 94640; 94760; 99285-25; J7030

== ENCOUNTER → 2018-07-23 | Outpatient (CLI) | payer OTHER ==
[~2018-07-23] MED LIST changes: -ALBU3IS INH; +ALBU3IS NEB; +ASPERCREME1 EACH TOP; +Anti-Diarrheal2 MG PO; +BISA10S PR; +CEFU500T30 PO; +CVS DISPOSABLE399 ML PR; +Fentanyl1 EAC2 TOP; +Florastor250 MG PO; +GERI LANTA PO; +METR500 PO; +Milk Of Ma400 MG/5 M PO; +NOVOLOG FL100 UNIT/1 SC; -OXYC10ER PO; +OXYGEN; +Pedi-Dri 100,0060 GM TOP; +Secura Protecti50 GM TOP; +Suppository1 EACH PR; +VANCOCIN HCL125 MG PO; +VITAMIN D-32000 UNIT PO; +Vsl#3 Capsule1 EACH PO
[2018-07-23 14:04] LABS: Source, Urine Catheter
[2018-07-23 14:23] LABS: Bilirubin, Urine Neg (Neg); Blood, Urine Neg (Neg); Glucose Qualitative, Urine Neg (Neg); Ketones, Urine Neg (Neg); Leukocyte Esterase, Urine Neg (Neg); Nitrite, Urine Neg (Neg); Protein, Urine Neg (Neg); Urobilinogen, Urine NORM (Normal)
[2018-07-23 14:42] LABS: Appearance, Urine Clear (Clear); Color, Urine Yellow (P-Yellow)
== END | disposition home or self-care (01) ==
LOC: EDSTATUS 09:02 → LAB RH 11:30
PROVIDERS: Family Medicine
DX: N39.0 Urinary tract infection, site not specified (principal)
CPT/HCPCS: 81003; 87086

== ENCOUNTER 2018-08-25 16:24 | Inpatient (IN) | payer OTHER ==
[~2018-08-25] VITALS: Ht 157.5 cm; Wt 59.0 kg
[~2018-08-25 16:24] MED LIST changes: -ASPERCREME1 EACH TOP; -Anti-Diarrheal2 MG PO; -BISA10S PR; -CEFU500T30 PO; -Florastor250 MG PO; -GERI LANTA PO; -METR500 PO; -Milk Of Ma400 MG/5 M PO; -NOVOLOG FL100 UNIT/1 SC; -OXYGEN; -Pedi-Dri 100,0060 GM TOP; -Secura Protecti50 GM TOP; -VANCOCIN HCL125 MG PO; -Vsl#3 Capsule1 EACH PO
[2018-08-25] MEDS ORDERED: OXYGEN (16:49)
[2018-08-25 17:08] LABS: BASOPHILS ABSOLUTE AUTO 0.04 K/mm3 (0.00-0.23); BASOPHILS PERCENT AUTO 0 % (0-2); EOSINOPHILS PERCENT AUTO 0 % (0-6); Hematocrit 38.2 % (33.0-51.0); Hemoglobin 12.4 g/dL (11.5-16.0); IMMATURE GRAN ABSOLUTE AUTO 0.07 K/mm3 (0.00-0.10); IMMATURE GRAN PERCENT AUTO 0 % (0-1); LYMPHOCYTES ABSOLUTE AUTO 1.16 K/mm3 (0.84-5.20); LYMPHOCYTES PERCENT AUTO 6 % (21-46); MONOCYTES ABSOLUTE AUTO 1.04 K/mm3 (0.16-1.47); MONOCYTES PERCENT AUTO 6 % (4-13); Mean Corpuscular HGB 31.6 pg (26.0-34.0); Mean Corpuscular HGB Conc 32.5 g/dL (31.5-36.5); Mean Corpuscular Volume 97 fL (80-100); Mean Platelet Volume 9.9 fL (9.1-12.4); NEUTROPHILS ABSOLUTE AUTO 16.72 K/mm3 (1.96-9.15); NEUTROPHILS PERCENT AUTO 88 % (41-73); Platelet Count 261 K/mm3 (150-400); RDW Coefficient Variation 13.2 % (11.7-14.2); Red Blood Cell Count 3.93 M/mm3 (3.80-5.20); White Blood Cell Count 19.03 K/mm3 (4.00-11.30)
[2018-08-25 17:28] LABS: Alanine Aminotransfer (ALT/SGP 17 U/L (12-78); Albumin, Blood 3.8 g/dL (3.4-5.0); Albumin/Globulin Ratio 0.9 (0.8-1.8); Alk Phos 66 U/L (50-136); Anion Gap 8 mmol/L (6-16); Aspartate Aminotrans (AST/SGOT 10 U/L (12-37); Bilirubin, Total 0.9 mg/dL (0.1-1.0); Blood Urea Nitrogen 10 mg/dL (8-24); Bun/Creatinine Ratio 12.7 (12.0-20.0); CO2, Blood 24 mmol/L (21-32); Calcium, Blood 9.7 mg/dL (8.5-10.1); Chloride, Blood 105 mmol/L (98-108); Creatinine, Blood 0.79 mg/dL (0.40-1.00); Globulin, Blood 4.2 g/dL (2.2-4.0); Glomerular Filtration Rate >60 (60-); Glucose, Blood 183 mg/dL (70-99); Potassium, Blood 3.7 mmol/L (3.5-5.5); Sodium, Blood 137 mmol/L (136-145)
[2018-08-25 17:52] LABS: Source, Urine Catheter
[2018-08-25 17:58] LABS: Bilirubin, Urine Neg (Neg); Blood, Urine 2+ (Neg); Glucose Qualitative, Urine Neg (Neg); Ketones, Urine 3+ (Neg); Leukocyte Esterase, Urine 1+ (Neg); Nitrite, Urine Neg (Neg); Protein, Urine 2+ (Neg); Specific Gravity, Urine 1.015 (1.003-1.022); Urobilinogen, Urine 1+ (Normal)
[2018-08-25 18:03] LABS: Appearance, Urine Clear (Clear); Color, Urine Yellow (P-Yellow)
[2018-08-25 18:07] LABS: Bacteria Few /hpf; Squamous Epithelial Cells Few /hpf (Few)
[2018-08-25] MEDS ORDERED: PANT40 PO (18:49)
--- NOTE | 2018-08-26 05:00 | NUR ---
SHIFT SUMMARY PATIENT IS SLEEPY. OPENS EYES TO VERBAL STIMULI, AND SAYS YES AND NO AT TIMES. PATIENT IS INCONTINENT. HAS A SMALL PRESSURE ULCER ON COCCYX THAT NOW HAS A MEPLIX DRESSING ON. PATIENT HAS A LEFT BKA. PATIENT SLEPT WELL THROUGHOUT THE NIGHT. PATIENT'S FAMILY HAD BEEN IN TO SEE THE PT. PATIENT RECIEVED 1 LITER OF FLUIDS, AND ANTIBIOTICS. PATIENT WAS REPOSITIONED TO PREVENT FURTHER BREAKDOWN ON COCCYX. MAINTAINING OXYGEN SATURATIONS. VITALS STABLE. NO NEW CHANGES THROUGHOUT THE NIGHT.
[2018-08-26 05:03] LABS: BASOPHILS ABSOLUTE AUTO 0.02 K/mm3 (0.00-0.23); BASOPHILS PERCENT AUTO 0 % (0-2); EOSINOPHILS PERCENT AUTO 0 % (0-6); Hematocrit 32.4 % (33.0-51.0); Hemoglobin 10.3 g/dL (11.5-16.0); IMMATURE GRAN ABSOLUTE AUTO 0.11 K/mm3 (0.00-0.10); IMMATURE GRAN PERCENT AUTO 1 % (0-1); LYMPHOCYTES ABSOLUTE AUTO 0.82 K/mm3 (0.84-5.20); LYMPHOCYTES PERCENT AUTO 5 % (21-46); MONOCYTES ABSOLUTE AUTO 0.72 K/mm3 (0.16-1.47); MONOCYTES PERCENT AUTO 4 % (4-13); Mean Corpuscular HGB Conc 31.8 g/dL (31.5-36.5); Mean Corpuscular Volume 98 fL (80-100); Mean Platelet Volume 10.2 fL (9.1-12.4); NEUTROPHILS ABSOLUTE AUTO 14.57 K/mm3 (1.96-9.15); NEUTROPHILS PERCENT AUTO 90 % (41-73); Platelet Count 236 K/mm3 (150-400); RDW Coefficient Variation 13.2 % (11.7-14.2); RDW Standard Deviation 47.1 fL (35.1-46.3); Red Blood Cell Count 3.32 M/mm3 (3.80-5.20); White Blood Cell Count 16.24 K/mm3 (4.00-11.30)
--- NOTE | 2018-08-26 17:32 | NUR ---
PT IS A/OX3, PLEASANT AND COOPERATIVE, THE PT IS A 1-2 PERSON ASSIST UP TO THE BSC, DUE TO LEFT BKA AND NO PROSTHESIS AT THIS TIME, THIS AM THE PT WAS SLOW TO RESPOND AND MISS TRUSTING BLANK STARE, THIS AFTERNOON THE PT IS FULLY ORIENTED, COOPERATIVE, AND AWAKE, THE PT WAS MEDICATED FOR CHRONIC PAIN, THE PT DENIED N/V, APPEARS TO BE BREATHING EASILY ON O2 @ 2L/MIN AT THIS TIME, CALL LIGHT IN REACH, WILL CONTINUE TO MONITOR AND ASSESS FOR CHANGES
--- NOTE | 2018-08-26 17:58 | NUR ---
[facility] visit: Mrs. Gandhi was alone in room. She is very [place] and appeared suspicious of me. After a few minutes, we gained rapport, and she began to tell me about the loss of her 2 years ago. She responded well to gentle affirmation and bereavement mortgage counselor. Her dtr arrived and visit came to a close. Prayer provided at bedside. I will remain available.
[2018-08-27 05:36] LABS: BASOPHILS ABSOLUTE AUTO 0.04 K/mm3 (0.00-0.23); BASOPHILS PERCENT AUTO 0 % (0-2); EOSINOPHILS ABSOLUTE AUTO 0.06 K/mm3 (0.00-0.68); EOSINOPHILS PERCENT AUTO 0 % (0-6); Hematocrit 32.9 % (33.0-51.0); Hemoglobin 10.3 g/dL (11.5-16.0); IMMATURE GRAN ABSOLUTE AUTO 0.11 K/mm3 (0.00-0.10); IMMATURE GRAN PERCENT AUTO 1 % (0-1); LYMPHOCYTES ABSOLUTE AUTO 1.81 K/mm3 (0.84-5.20); LYMPHOCYTES PERCENT AUTO 13 % (21-46); MONOCYTES ABSOLUTE AUTO 1.13 K/mm3 (0.16-1.47); MONOCYTES PERCENT AUTO 8 % (4-13); Mean Corpuscular HGB 30.8 pg (26.0-34.0); Mean Corpuscular HGB Conc 31.3 g/dL (31.5-36.5); Mean Corpuscular Volume 99 fL (80-100); Mean Platelet Volume 10.3 fL (9.1-12.4); NEUTROPHILS ABSOLUTE AUTO 10.39 K/mm3 (1.96-9.15); NEUTROPHILS PERCENT AUTO 77 % (41-73); Platelet Count 222 K/mm3 (150-400); RDW Coefficient Variation 13.4 % (11.7-14.2); RDW Standard Deviation 48.7 fL (35.1-46.3); Red Blood Cell Count 3.34 M/mm3 (3.80-5.20); White Blood Cell Count 13.54 K/mm3 (4.00-11.30)
[2018-08-27 06:07] LABS: Albumin, Blood 3.1 g/dL (3.4-5.0); Anion Gap 6 mmol/L (6-16); Blood Urea Nitrogen 10 mg/dL (8-24); Bun/Creatinine Ratio 14.9 (12.0-20.0); CO2, Blood 25 mmol/L (21-32); Calcium, Blood 8.9 mg/dL (8.5-10.1); Chloride, Blood 111 mmol/L (98-108); Creatinine, Blood 0.67 mg/dL (0.40-1.00); Glomerular Filtration Rate >60 (60-); Glucose, Blood 114 mg/dL (70-99); Phosphorus, Blood 2.9 mg/dL (2.5-4.9); Potassium, Blood 3.6 mmol/L (3.5-5.5); Sodium, Blood 142 mmol/L (136-145)
--- NOTE | 2018-08-27 07:25 | NUR ---
3L via nc, saline locked, call light in reach, pain controlled with prescribed medication, no sob noted, bsr provided to returning day shift
--- NOTE | 2018-08-27 15:55 | NUR ---
[facility] new living arrangement for discharge
--- NOTE | 2018-08-27 17:33 | NUR ---
SHIFT SUMMARY PT AXO, PLEASANT AND COOPERATIVE WITH CARE, ALEKNAGIK. 1-2 PERSON ASSIST TO BSC WITH GB AND FWW. PT COMPLAINS OF PAIN, MEDICATED PER EMAR. 100% ON 3L, NURSE TITRATED TO 2L AT THIS TIME. MEPILEX APPLIED TO COCCYX FOR SKIN BREAKDOWN, CDI AT THIS TIME. BED IN LOW POSITION, CALL LIGHT WITHIN REACH.
--- NOTE | 2018-08-28 07:36 | NUR ---
call light in reach, [place], saline locked, 4L via nc, bsr given to day shift nurse
[2018-08-28 10:18] LABS: BASOPHILS ABSOLUTE AUTO 0.02 K/mm3 (0.00-0.23); BASOPHILS PERCENT AUTO 0 % (0-2); EOSINOPHILS ABSOLUTE AUTO 0.15 K/mm3 (0.00-0.68); EOSINOPHILS PERCENT AUTO 1 % (0-6); Hematocrit 31.8 % (33.0-51.0); IMMATURE GRAN ABSOLUTE AUTO 0.08 K/mm3 (0.00-0.10); IMMATURE GRAN PERCENT AUTO 1 % (0-1); LYMPHOCYTES ABSOLUTE AUTO 1.45 K/mm3 (0.84-5.20); LYMPHOCYTES PERCENT AUTO 14 % (21-46); MONOCYTES ABSOLUTE AUTO 0.69 K/mm3 (0.16-1.47); MONOCYTES PERCENT AUTO 7 % (4-13); Mean Corpuscular HGB 31.9 pg (26.0-34.0); Mean Corpuscular HGB Conc 31.4 g/dL (31.5-36.5); Mean Platelet Volume 10.6 fL (9.1-12.4); NEUTROPHILS ABSOLUTE AUTO 8.12 K/mm3 (1.96-9.15); NEUTROPHILS PERCENT AUTO 77 % (41-73); Platelet Count 216 K/mm3 (150-400); RDW Coefficient Variation 13.7 % (11.7-14.2); RDW Standard Deviation 50.8 fL (35.1-46.3); Red Blood Cell Count 3.13 M/mm3 (3.80-5.20); White Blood Cell Count 10.51 K/mm3 (4.00-11.30)
[2018-08-28 10:20] LABS: Mean Corpuscular Volume 102 fL (80-100)
[2018-08-28 10:34] LABS: Albumin, Blood 2.8 g/dL (3.4-5.0); Anion Gap 8 mmol/L (6-16); Blood Urea Nitrogen 9 mg/dL (8-24); Bun/Creatinine Ratio 13.9 (12.0-20.0); CO2, Blood 22 mmol/L (21-32); Calcium, Blood 8.3 mg/dL (8.5-10.1); Chloride, Blood 111 mmol/L (98-108); Creatinine, Blood 0.65 mg/dL (0.40-1.00); Glomerular Filtration Rate >60 (60-); Glucose, Blood 213 mg/dL (70-99); Phosphorus, Blood 2.8 mg/dL (2.5-4.9); Potassium, Blood 3.3 mmol/L (3.5-5.5); Sodium, Blood 141 mmol/L (136-145)
--- NOTE | 2018-08-28 19:17 | NUR ---
SHIFT SUMMARY- PT HAS HAD NO ACUTE CHANGES T/O THE SHIFT. PT LAYING IN BED WITH THE CALL LIGHT IN REACH. EDSIDE REPORT COMPLETED WITH NIGHT RN ONEYDA. PT ALERT AND ORIENTED. PAIN MEDICATION GIVEN AT SHIFT CHANGE. NEW LIDODERM PATCH ON LEFT LOWER EXTREMITY SURGICAL SITE. PT STATE PAIN HAS BEEN WELL MANAGED T/O THE SHIFT TODAY. NIGHT RN AWARE LIDODERM PATCH IS IN PLACE AND NEEDS TO BE REMOVED.
[2018-08-29] MEDS ORDERED: Vsl#3 Capsule1 EACH PO (15:55)
[2018-08-29] MEDS ORDERED: METR500 PO (15:56)
[2018-08-29] MEDS ORDERED: CEFU500T30 PO (15:56)
--- NOTE | 2018-08-29 16:50 | NUR ---
REPORT GIVEN TO LEÓN AT [facility]. ANSWER ALL QUESTIONS. D'C INSTRUCTIONS WERE FAXED BY SUGAR REFINER AND TYPE COPY EXAMINER W/LEÓN STATING SHE DOES NOT HAVE THEM. REFAXED AGAIN. ANSWER ALL QUESTIONS. PATIENT WILL GO TO [facility] FOR POSSIBLY 1 WEEK THEN TO [facility].
== END 2018-08-29 17:36 | DRG 871 ==
LOC: ER 16:24 → MEDS 22:04
PROVIDERS: Emergency Medicine; Internal Medicine; ADMIT Hospitalist
DX: A41.9 Sepsis, unspecified organism (principal); J69.0 Pneumonitis due to inhalation of food and vomit; G92 Toxic encephalopathy; J96.21 Acute and chronic respiratory failure with hypoxia; J44.9 Chronic obstructive pulmonary disease, unspecified; E87.6 Hypokalemia; I65.29 Occlusion and stenosis of unspecified carotid artery; G89.4 Chronic pain syndrome; I73.9 Peripheral vascular disease, unspecified; G62.9 Polyneuropathy, unspecified; E78.5 Hyperlipidemia, unspecified; Z99.81 Dependence on supplemental oxygen; Z89.512 Acquired absence of left leg below knee; Z88.5 Allergy status to narcotic agent; Z86.73 Personal history of transient ischemic attack (TIA), and cerebral infarction without residual deficits; I25.2 Old myocardial infarction; Z87.891 Personal history of nicotine dependence; I25.10 Atherosclerotic heart disease of native coronary artery without angina pectoris
CPT/HCPCS: 36415; 51701; 71045; 74176; 80053; 80069; 81001; 83605; 84145; 85025; 87040; 87086; 94640; 94760; 96361; 96365; 96366; 96367; 96375; 97162; 97166; 97530; 97535; 99285-25; A9270; J0696; J2930; J7030; J7050

== ENCOUNTER → 2018-11-05 | Outpatient (CLI) | payer OTHER ==
[~2018-11-05] MED LIST changes: +ASPERCREME1 EACH TOP; +Anti-Diarrheal2 MG PO; +BISA10S PR; +CEFU500T30 PO; +Florastor250 MG PO; +GERI LANTA PO; +METR500 PO; +Milk Of Ma400 MG/5 M PO; +NOVOLOG FL100 UNIT/1 SC; +OXYGEN; +Pedi-Dri 100,0060 GM TOP; +Secura Protecti50 GM TOP; +VANCOCIN HCL125 MG PO; +Vsl#3 Capsule1 EACH PO
[2018-11-05 10:05] LABS: Source, Urine Clean Catch
[2018-11-05 10:52] LABS: Bilirubin, Urine Neg (Neg); Blood, Urine 2+ (Neg); Glucose Qualitative, Urine Neg (Neg); Ketones, Urine 1+ (Neg); Leukocyte Esterase, Urine 2+ (Neg); Nitrite, Urine Pos (Neg); Protein, Urine 2+ (Neg); Urobilinogen, Urine NORM (Normal); pH, Urine 6.5 (5.0-8.0)
[2018-11-05 11:06] LABS: Appearance, Urine Cloudy (Clear); Color, Urine Yellow (P-Yellow)
[2018-11-05 11:07] LABS: Bacteria Many /hpf; Red Blood Cells, Urine 0-2 /hpf (0-2); Squamous Epithelial Cells Few /hpf (Few)
== END | disposition home or self-care (01) ==
LOC: LAB 10:02 → LAB SHORT 10:02
PROVIDERS: Family Medicine
DX: N39.0 Urinary tract infection, site not specified (principal)
CPT/HCPCS: 81001; 87077; 87086; 87186

== ENCOUNTER 2018-11-22 13:19 | Inpatient (IN) | payer OTHER ==
[~2018-11-22] VITALS: Ht 157.5 cm; Wt 68.3 kg
[~2018-11-22 13:19] MED LIST changes: -ASPERCREME1 EACH TOP; -Anti-Diarrheal2 MG PO; -BISA10S PR; -Florastor250 MG PO; -GERI LANTA PO; -Milk Of Ma400 MG/5 M PO; -NOVOLOG FL100 UNIT/1 SC; -Pedi-Dri 100,0060 GM TOP; -Secura Protecti50 GM TOP; -VANCOCIN HCL125 MG PO
[2018-11-22 14:40] LABS: Hematocrit 40.9 % (33.0-51.0); Hemoglobin 12.7 g/dL (11.5-16.0); Mean Corpuscular HGB 31.1 pg (26.0-34.0); Mean Corpuscular HGB Conc 31.1 g/dL (31.5-36.5); Mean Corpuscular Volume 100 fL (80-100); Mean Platelet Volume 10.9 fL (9.1-12.4); Platelet Count 267 K/mm3 (150-400); RDW Coefficient Variation 13.2 % (11.7-14.2); RDW Standard Deviation 48.5 fL (35.1-46.3); Red Blood Cell Count 4.08 M/mm3 (3.80-5.20); White Blood Cell Count 31.28 K/mm3 (4.00-11.30)
[2018-11-22] MEDS ORDERED: NOVOLOG FL100 UNIT/1 SC (14:45)
[2018-11-22 15:17] LABS: BAND PERCENT MAN 7 % (0-8); BASOPHILS PERCENT MAN 0 % (0-2); EOSINOPHILS PERCENT MAN 0 % (0-6); LYMPHOCYTES ABSOLUTE MAN 0.62 K/mm3 (0.84-5.20); LYMPHOCYTES PERCENT MAN 2 % (21-46); METAMYELOCYTE ABSOLUTE MAN 0.31 K/mm3 (0.00-0.00); METAMYELOCYTE PERCENT MAN 1 % (0-0); MONOCYTES ABSOLUTE MAN 2.81 K/mm3 (0.16-1.47); MONOCYTES PERCENT MAN 9 % (4-13); NEUTROPHILS ABSOLUTE MAN 27.52 K/mm3 (1.96-9.15); SEG NEUTROPHILS PERCENT MAN 81 % (41-73); TOTAL CELLS COUNTED 100
[2018-11-22 15:23] LABS: Source, Urine Catheter
[2018-11-22 15:28] LABS: Appearance, Urine Clear (Clear); Blood, Urine Neg (Neg); Color, Urine Yellow (P-Yellow); Glucose Qualitative, Urine Neg (Neg); Ketones, Urine 1+ (Neg); Leukocyte Esterase, Urine 1+ (Neg); Nitrite, Urine Neg (Neg); Protein, Urine 2+ (Neg); Urobilinogen, Urine NORM (Normal)
[2018-11-22 15:53] LABS: Bilirubin, Urine 1+ (Neg)
[2018-11-22 16:00] LABS: Red Blood Cells, Urine Rare /hpf (0-2); Squamous Epithelial Cells Many /hpf (Few); White Blood Cells, Urine 0-2 /hpf (0-5)
[2018-11-22 16:01] LABS: Bacteria Mod /hpf
[2018-11-22 16:53] LABS: Albumin, Blood 2.5 g/dL (3.4-5.0); Albumin/Globulin Ratio 0.7 (0.8-1.8); Bilirubin, Total 0.4 mg/dL (0.1-1.0); Bun/Creatinine Ratio 17.8 (12.0-20.0); Calcium, Blood 8.8 mg/dL (8.5-10.1); Creatinine, Blood 2.25 mg/dL (0.40-1.00); Globulin, Blood 3.7 g/dL (2.2-4.0); Potassium, Blood 3.3 mmol/L (3.5-5.5); Total Protein, Blood 6.2 g/dL (6.4-8.2)
[2018-11-22 16:58] LABS: Base Excess Venous -4.9 mmol/L; Bicarbonate Venous 20.4 mmol/L (24.0-30.0); PCO2 Venous 40.8 mmHg (38-42); pH Blood Venous 7.32 (7.34-7.37)
[2018-11-22] MEDS ORDERED: ACET325 PO (17:04)
[2018-11-22] MEDS ORDERED: Pedi-Dri 100,0060 GM TOP (17:16)
[2018-11-22] MEDS ORDERED: ALBU3IS NEB (17:17)
[2018-11-22] MEDS ORDERED: ASPERCREME1 EACH TOP (17:19)
[2018-11-22] MEDS ORDERED: BISA10S PR (17:20)
[2018-11-22] MEDS ORDERED: Milk Of Ma400 MG/5 M PO (17:21)
[2018-11-22] MEDS ORDERED: Anti-Diarrheal2 MG PO (17:21)
[2018-11-22] MEDS ORDERED: GERI LANTA PO (17:22)
[2018-11-22] MEDS ORDERED: Secura Protecti50 GM TOP (17:23)
[2018-11-23 01:27] LABS: Adenovirus Not Detected (NOT DETECT); Adenovirus F 40/41 Not Detected (NOT DETECT); Astrovirus Not Detected (NOT DETECT); Bordetella pertussis Not Detected (NOT DETECT); Campylobacter Sp Not Detected (NOT DETECT); Chlamydophila pneumoniae Not Detected (NOT DETECT); Coronavirus 229E Not Detected (NOT DETECT); Coronavirus HKU1 Not Detected (NOT DETECT); Coronavirus NL63 Not Detected (NOT DETECT); Coronavirus OC43 Not Detected (NOT DETECT); Cryptosporidium Not Detected (NOT DETECT); Cyclospora Cayetanensis Not Detected (NOT DETECT); E. Coli O157 Not Detected (NOT DETECT); Entamoeba Histolytica Not Detected (NOT DETECT); Enteroaggregative E. coli-EAEC Not Detected (NOT DETECT); Enteropathogenic E. coli-EPEC Not Detected (NOT DETECT); Enterotoxigenic E. coli-ETEC Not Detected (NOT DETECT); Giardia Lamblia Not Detected (NOT DETECT); Human Metapneumovirus Not Detected (NOT DETECT); Human Rhinovirus/Enterovirus Not Detected (NOT DETECT); Influenza A Not Detected (NOT DETECT); Influenza A/2009-H1 Not Detected (NOT DETECT); Influenza A/H1 Not Detected (NOT DETECT); Influenza A/H3 Not Detected (NOT DETECT); Influenza B Not Detected (NOT DETECT); Mycoplasma pneumoniae Not Detected (NOT DETECT); Norovirus GI/GII Not Detected (NOT DETECT); Parainfluenza Virus 1 Not Detected (NOT DETECT); Parainfluenza Virus 2 Not Detected (NOT DETECT); Parainfluenza Virus 3 Not Detected (NOT DETECT); Parainfluenza Virus 4 Not Detected (NOT DETECT); Plesiomonas Shigelloides Not Detected (NOT DETECT); Respiratory Syncytial Virus Not Detected (NOT DETECT); Rotavirus A Not Detected (NOT DETECT); Salmonella Sp Not Detected (NOT DETECT); Sapovirus Not Detected (NOT DETECT); Shiga Toxin-prod E. coli-STEC Not Detected (NOT DETECT); Shigella/Enteroin E. coli-EIEC Not Detected (NOT DETECT); Vibrio Cholerae Not Detected (NOT DETECT); Vibrio Sp Not Detected (NOT DETECT); Yersinia Enterocolitica Not Detected (NOT DETECT)
--- NOTE | 2018-11-23 01:30 | NUR ---
ADMIT 11/22 @ 19:45 FROM ED, 2L 02 ON, RECEIVING IV ABX AND FLUIDS. PT. PRESENTS CONFUSED, IRRITABLE, BUT STILL COOPERATIVE. FAMILY ACCOMPANYING. HYPOTENSIVE, LESLI, CLOTHING MANAGER ARRIVED AT BEDSIDE AND GAVE ORDERS FOR LEVOPHED, OTHER MEDS, STARTED ICU CONSULT.
[2018-11-23 04:18] LABS: EOSINOPHILS ABSOLUTE AUTO 0.05 K/mm3 (0.00-0.68); EOSINOPHILS PERCENT AUTO 0 % (0-6); Hematocrit 36.8 % (33.0-51.0); Hemoglobin 11.8 g/dL (11.5-16.0); IMMATURE GRAN ABSOLUTE AUTO 1.53 K/mm3 (0.00-0.10); IMMATURE GRAN PERCENT AUTO 4 % (0-1); LYMPHOCYTES ABSOLUTE AUTO 1.51 K/mm3 (0.84-5.20); LYMPHOCYTES PERCENT AUTO 4 % (21-46); MONOCYTES PERCENT AUTO 5 % (4-13); Mean Corpuscular HGB Conc 32.1 g/dL (31.5-36.5); Mean Platelet Volume 10.6 fL (9.1-12.4); NEUTROPHILS PERCENT AUTO 86 % (41-73); Platelet Count 292 K/mm3 (150-400); RDW Coefficient Variation 13.2 % (11.7-14.2); RDW Standard Deviation 46.9 fL (35.1-46.3); Red Blood Cell Count 3.81 M/mm3 (3.80-5.20)
[2018-11-23 04:25] LABS: BASOPHILS ABSOLUTE AUTO 0.01 K/mm3 (0.00-0.23); BASOPHILS PERCENT AUTO 0 % (0-2); Mean Corpuscular Volume 97 fL (80-100)
[2018-11-23 04:35] LABS: Bun/Creatinine Ratio 23.5 (12.0-20.0); Calcium, Blood 7.4 mg/dL (8.5-10.1); Creatinine, Blood 1.15 mg/dL (0.40-1.00); Potassium, Blood 3.1 mmol/L (3.5-5.5)
[2018-11-23 06:16] LABS: Magnesium, Blood 1.3 mg/dL (1.6-2.4); Phosphorus, Blood 2.1 mg/dL (2.5-4.9)
--- NOTE | 2018-11-23 06:40 | NUR ---
SHIFT SUMMARY PT. SLEPT WELL THROUGH NIGHT, BP WAS STABLE ON 4 MCG/MIN LEVOPHED, MAPS BARELY MAKING GOAL SO NO TITRATION. C-DIFF FINAL RESULT STILL PENDING, INITIATE PRELIMINARY ISOLATION MEASURES.
--- NOTE | 2018-11-23 08:15 | NUR ---
INITIAL ASSESSMENT PATIENT ALERT AND ORIENTED ONLY TO SELF. PER DAUGHTER, THIS IS NOT THE PATIENT'S BASELINE. PATIENT NORMALLY ALERT AND ORIENTED X 4 PER FAMILY. PATIENT SLOW TO RESPOND. PATIENT IRRITABLE, DEFENSIVE, BUT MOSTLY COOPERATIVE. PATIENT CANTAKEROUS AND IS CONSTANTLY ASKING FOR WATER. L BKA NOTED, PATIENT WEAKER IN LEFT ARM AND HAND THAN RIGHT SIDE. PATIENT HAS HISTORY OF CVA X 3. L HAND CONTRACTED. PATIENT AFEBRILE. NO COMPLAINTS OF PAIN AT THIS TIME. PATIENT DECREASED FROM 3 L NC TO 1 L NC AND REMAINS SATTING 90% AND GREATER. EXPIRATORY COARSENESS NOTED IN UPPER LUNG LOBES. LOWER LOBES DIMINISHED. SHALLOW BREATHS NOTED. PATIENT HAS MOIST, LOOSE, PRODUCTIVE COUGH, PRODUCING MODERATE AMOUNT OF THICK, YELLOW/ GALLARDO SPUTUM. PATIENT IN SR TO ST, HR 90S TO LOW 100S. PATIENT HAS BEEN ON LEVOPHED. LEVOPHED RECENTLY PLACED ON SB- BP STABLE AT THIS TIME. SCD TO RLE. PATIENT INCONTINENT OF STOOL AND URINE. ATTENDS IN PLACE. INSTRUCTIONAL SERVICES SPECIALIST RN REPORTED THAT PATIENT HAS BEEN HAVING LIQUID STOOLS THAT IS VERY DARK IN COLOR- "ALMOST BLACK". SKIN IS DRY AND FRAGILE. GROIN FOLDS REDDENED AND EXCORIATED. COCCYX REDDENED. LR INFUSING AT 100 MLS/ HOUR. BED LOW, CALL LIGHT IN REACH. WILL CONTINUE TO MONITOR PATIENT FREQUENTLY THROUGHOUT SHIFT.
--- NOTE | 2018-11-23 10:05 | NUR ---
DR. NEUMANN IN TO SEE PATIENT AND SPEAK WITH DAUGHTER. DOCTOR UPDATED ON PATIENT STATUS. DOCTOR INFORMED OF REDDENED GROIN FOLDS, THAT POTASSIUM LOW THIS AM BUT REPLACED WITH 20 KCL. INFORMED THAT PHOSPHORUS LOW AT 2.1 AND MAGNESIUM LOW AT 1.3. DOCTOR INFORMED THAT PATIENT HAS BEEN SWALLOWING WATER WITHOUT DIFFICULTY OR ANY SIGNS OF ASPIRATION. DOCTOR WATCHED PATIENT DRINK WATER. ORDER RECEIVED TO ADVANCE DIET TOLERATED.
--- NOTE | 2018-11-23 12:00 | NUR ---
PATIENT HAS BEEN NAPPING ON AND OFF. DAUGHTER HAS BEEN IN ROOM MOST OF THE MORNING. PATIENT AFEBRILE. PATIENT ORIENTED TO SELF AND FAMILY. PATIENT SATTING 90% AND GREATER ON RA TO 3 L NC. LUNGS CLEAR IN THE UPPER LOBES AND DIMINISHED IN THE LOWER LOBES. PATIENT IN SR, HR IN THE 80S. SBP IN THE 90S. LEVOPHED HAS BEEN ON SB. SKIN FOLDS REDDENED UNDER BREASTS. NO OTHER ACUTE CHANGES TO NOTE ON AT THIS TIME. PATIENT HAS NOT COMPLAINTS OF SIGNS OF PAIN OR DISCOMFORT AT THIS TIME. WILL CONTINUE TO MONITOR.
[2018-11-23] MEDS ORDERED: ASPERCREME1 EACH TOP (12:11)
[2018-11-23] MEDS ORDERED: ALBU90OI INH (12:25)
--- NOTE | 2018-11-23 16:00 | NUR ---
PATIENT RESTING QUIETLY IN ROOM UPON ENTERING. FAMILY AT BEDSIDE. PATIENT REMAINS ONLY ORIENTED TO FAMILY AND SELF BUT IS STARTING TO ASK QUESTIONS ABOUT WHERE SHE IS AND WHY SHE IS HERE. PATIENT LESS CANTANKEROUS AND IS MORE COOPERATE THE DAY HAS WENT ON. LUNGS CLEAR IN UPPER LOBES AFTER PATIENT COUGHS. PATIENT STILL COUGHING UP MODERATE AMOUNT OF THICK SPUTUM. HR IN THE 90S. SBP IN THE 120S. LEVOPHED AT 1 MCG/ MINUTE. NO OTHER ACUTE CHANGES TO NOTE ON AT THIS TIME. PATIENT CURRENTLY HAS NO COMPLAINTS. WILL CONTINUE TO MONITOR.
--- NOTE | 2018-11-23 18:46 | NUR ---
SHIFT SUMMARY PATIENT BECAME MORE ALERT AND ORIENTED THROUGH SHIFT. PATIENT STILL SLIGHTLY CONFUSED BUT IS NOW ASKING QUESTIONS TO HELP ORIENT HERSELF. PATIENT UPPER MATTAPONI. PATIENT CANTANKEROUS AT BEGINNING OF SHIFT, BUT HAS IMPROVED MUCH SINCE. PATIENT HAS REMAINED AFEBRILE. PATIENT HAS NOT HAD ANY COMPLAINTS OF PAIN. PATIENT MOVING ALL EXTREMITIES TO COMMAND. PATIENT HAS L BKA, WELL A DEFICIT IN LUE FROM PAST CVA. PATIENT SATTED 90% AND GREATER ON RA TO 3 L NC. PATIENT CONTINUED TO HAVE MOIST, LOOSE, PRODUCTIVE COUGH, PRODUCING MODERATE AMOUNT OF THICK, YELLOW/ GALLARDO SPUTUM. PATIENT HAS REMAINED IN SR TO ST, HR 80S TO 1-TEENS. SBP 70S TO 150S. LEVOPHED RANGED FROM SB TO 4 MCG/ MINUTE THIS SHIFT. LEVOPHED CURRENTLY ON SB. PATIENT MOSTLY INCONTINENT OF STOOL AND URINE. PATIENT HAD 2 GREEN/ BROWN, JELLY CONSISTENCY STOOLS THIS SHIFT. PATIENT ADVANCED TO SOFT/ RENAL DIET AND IS TOLERATING WELL. NO CHANGE TO SKIN. SCHEDULED NYSTATIN ORDERED THIS SHIFT FOR REDDENED SKIN FOLDS. LR REMAINS INFUSING AT 100 MLS/ HOUR. PATIENT GIVEN REPLACEMENTS FOR LOW POTASSIUM, PHOSPHORUS, AND MAGNESIUM TODAY. PATIENT RECEIVED COMPLETE BEDBATH. FAMILY IN MOST OF THE DAY. PATIENT DOES NOT HAVE ANY COMPLAINTS AT THIS TIME. BED LOW, CALL LIGHT IN REACH. WILL BE GIVING REPORT TO ONCOMING AUDIO VISUAL EQUIPMENT RENTAL CLERK NURSE SHORTLY.
[2018-11-23 19:08] LABS: Vancomycin, Random 6.3 ug/mL
[2018-11-24 04:06] LABS: Hematocrit 33.1 % (33.0-51.0); Hemoglobin 10.7 g/dL (11.5-16.0); Mean Corpuscular HGB 30.1 pg (26.0-34.0); Mean Corpuscular HGB Conc 32.3 g/dL (31.5-36.5); RDW Coefficient Variation 13.2 % (11.7-14.2); RDW Standard Deviation 45.6 fL (35.1-46.3); Red Blood Cell Count 3.55 M/mm3 (3.80-5.20); White Blood Cell Count 22.22 K/mm3 (4.00-11.30)
[2018-11-24 04:10] LABS: Mean Corpuscular Volume 93 fL (80-100); Mean Platelet Volume 10.8 fL (9.1-12.4); Platelet Count 222 K/mm3 (150-400)
[2018-11-24 04:23] LABS: Anion Gap 7 mmol/L (6-16); Blood Urea Nitrogen 7 mg/dL (8-24); CO2, Blood 22 mmol/L (21-32); Calcium, Blood 7.5 mg/dL (8.5-10.1); Chloride, Blood 110 mmol/L (98-108); Creatinine, Blood 0.58 mg/dL (0.40-1.00); Glomerular Filtration Rate >60 (60-); Glucose, Blood 124 mg/dL (70-99); Magnesium, Blood 1.6 mg/dL (1.6-2.4); Phosphorus, Blood 1.1 mg/dL (2.5-4.9); Potassium, Blood 2.9 mmol/L (3.5-5.5); Sodium, Blood 139 mmol/L (136-145)
[2018-11-24 04:30] LABS: BAND PERCENT MAN 13 % (0-8); BASOPHILS PERCENT MAN 0 % (0-2); EOSINOPHILS ABSOLUTE MAN 0.22 K/mm3 (0.00-0.68); EOSINOPHILS PERCENT MAN 1 % (0-6); LYMPHOCYTES ABSOLUTE MAN 1.77 K/mm3 (0.84-5.20); LYMPHOCYTES PERCENT MAN 8 % (21-46); MONOCYTES ABSOLUTE MAN 1.11 K/mm3 (0.16-1.47); MONOCYTES PERCENT MAN 5 % (4-13); SEG NEUTROPHILS PERCENT MAN 73 % (41-73); TOTAL CELLS COUNTED 100
--- NOTE | 2018-11-24 06:32 | NUR ---
SHIFT SUMMARY WAS ABLE TO KEEP LEVOPHED OFF MOST OF NIGHT, DID REQUIRE MINIMAL PRESSORS ~ 01:00 - 02:30. VSS, NO C/O PAIN. MULTIPLE BOUTS OF DIARRHEA, INCONTINENCE. MENTATION APPROPRIATE THRU NIGHT.
--- NOTE | 2018-11-24 08:00 | NUR ---
INITIAL ASSESSMENT PATIENT RESTING QUIETLY IN BED UPON ENTERING ROOM. PATIENT [place]. PATIENT ALERT AND ORIENTED TO SELF, FAMILY, FOLLOWING DIRECTIONS, PERSON, DATE/ TIME. PATIENT STILL SLIGHTLY CONFUSED AT TIMES BUT HAS BEEN IMPROVING OVERALL. PATIENT AFEBRILE. PATIENT HAS NO COMPLAINTS OF PAIN OR DISCOMFORT AT THIS TIME. PATIENT CALM, COOPERATIVE AND PLEASANT. L BKA NOTED. L ARM DEFICIT NOTED COMPARED TO RIGHT. PATIENT HAS HISTORY OF CVA X 3. L HAND CONTRACTED. PATIENT DECREASED FROM 2 L NC TO RA AND HAS REMAINED SATTING 90% AND GREATER. LUNGS CLEAR IN UPPER LOBES AND DIMINISHED IN LOWER LOBES. PATIENT HAS PRODUCTIVE COUGH- PRODUCING THIN, WHITE/ CLEAR SECRETIONS. PATIENT IN SR, HR IN THE 80S. SBP IN THE 1-TEENS. LEVOPHED HAS BEEN ON STANDBY. NON-PITTING EDEMA NOTED IN BUES. SCD TO RLE. PATIENT INCONTINENT OF STOOL AND URINE. [facility]. SKIN IS DRY AND FRAGILE. GROIN FOLD REDDENED AND EXCORIATED. SKIN FOLDS UNDER BREASTS REDDENED. SCHEDULED NYSTATIN POWDER BEING ADMINISTERED. COCCYX REDDENED. LR INFUSING AT 100 MLS/ HOUR. BED LOW, CALL LIGHT IN REACH. WILL CONTINUE TO MONITOR PATIENT FREQUENTLY THROUGHOUT SHIFT.
--- NOTE | 2018-11-24 10:36 | NUR ---
DR. NEUMANN IN TO SEE PATIENT. INFORMED EARLIER OF AM POTASSIUM LEVEL OF 2.9 AND AM PHOSPHORUS LEVEL OF 1.1. ORDERED 30 MM KPHOS AND HAS BEEN INFUSING. ALSO INFORMED THAT URINE CULTURE CAME BACK POSITIVE FOR CITROBACTER AMALONATICUS. NO ORDERS RECEIVED AT THIS TIME.
--- NOTE | 2018-11-24 12:00 | NUR ---
ATTENDS CHANGED. PATIENT SAT UP TO EAT LUNCH. DAUGHTER IN ROOM TO HELP EAT. PATIENT AFEBRILE. PATIENT REMAINS SATTING 90% AND GREATER ON RA. PATIENT IN SR, HR IN THE 80S. SBP IN THE 15OS. LEVOPHED DC'D. PATIENT STATES THAT ABDOMEN IS A LITTLE TENDER BUT IS MANAGEABLE AT THIS TIME. BLOOD SUGAR OF 142- NO COVERAGE NEEDED. NO OTHER ACUTE CHANGES TO NOTE ON AT THIS TIME. WILL CONTINUE TO MONITOR.
--- NOTE | 2018-11-24 16:15 | NUR ---
SPOKE WITH DR. NEUMANN ABOUT PATIENT'S SBP IN THE 160S TO 170S. HOME MED [place] ORDERED DAILY. WILL CONTINUE TO MONITOR.
--- NOTE | 2018-11-24 19:15 | NUR ---
SHIFT SUMMARY PATIENT REMAINED MOSTLY ALERT AND ORIENTED. PATIENT REMAINED AFEBRILE. PATIENT DID NOT HAVE ANY COMPLAINTS OF PAIN. PATIENT REMAINED SATTING 90% AND GREATER ON RA TO 2 L NC. PATIENT CONTINUES TO HAVE MOIST, PRODUCTIVE COUGH. PATIENT REMAINED IN SR. BP STABLE. LEVOPHED ON STANDBY UNTIL DC'D LATER. PATIENT HAS REMAINED IN CONTINENT. PATIENT HAD 2 BROWN/ GREEN, JELLY STOOLS. NO CHANGE TO SKIN. LR TKO. PATIENT HAS POOR APPETITE BUT IT IS IMPROVING. PATIENT RECEIVED 30 MM K PHOS REPLACEMENT TODAY. PT/ OT ORDERED TODAY. PATIENT REFUSED BED BATH. PATIENT CHANGED FROM ICU STATUS TO MEDICAL FLOOR STATUS WITH NO TELE. FAMILY IN AND OUT ALL DAY TO VISIT. PATIENT HAS NO COMPLAINTS AT THIS TIME. REPORT GIVEN TO ASSUMING MEDICAL TECHNICIANS NURSE.
--- NOTE | 2018-11-24 22:10 | NUR ---
ASSUMED CARE OF PT, REPORT RCV'D FROM AMELIA GARVIN. PT ALERT AND ORIENTED, COOPERATIVE OF CARE. PT COMPLAINING OF CHRONIC PAIN FROM HER AMPUTATION. AT [facility] PT TAKES 5 MG OXYCODONE Q6 PRN, CALL TO HOSPITALIST AND ONE TIME ORDER FOR HOME DOSE ORDERED. LEFT LEG ELEVATED AND PT REPOSITIONED. VSS. SEE FULL SHIFT ASSESSMENT.
[2018-11-25 06:14] LABS: BASOPHILS ABSOLUTE AUTO 0.07 K/mm3 (0.00-0.23); BASOPHILS PERCENT AUTO 1 % (0-2); EOSINOPHILS ABSOLUTE AUTO 0.28 K/mm3 (0.00-0.68); EOSINOPHILS PERCENT AUTO 2 % (0-6); Hematocrit 35.6 % (33.0-51.0); Hemoglobin 11.6 g/dL (11.5-16.0); IMMATURE GRAN ABSOLUTE AUTO 0.67 K/mm3 (0.00-0.10); IMMATURE GRAN PERCENT AUTO 5 % (0-1); LYMPHOCYTES PERCENT AUTO 14 % (21-46); MONOCYTES ABSOLUTE AUTO 0.77 K/mm3 (0.16-1.47); MONOCYTES PERCENT AUTO 6 % (4-13); Mean Corpuscular HGB 30.7 pg (26.0-34.0); Mean Corpuscular HGB Conc 32.6 g/dL (31.5-36.5); Mean Corpuscular Volume 94 fL (80-100); Mean Platelet Volume 10.8 fL (9.1-12.4); NEUTROPHILS PERCENT AUTO 72 % (41-73); Platelet Count 232 K/mm3 (150-400); RDW Coefficient Variation 13.3 % (11.7-14.2); RDW Standard Deviation 46.4 fL (35.1-46.3); Red Blood Cell Count 3.78 M/mm3 (3.80-5.20); White Blood Cell Count 12.59 K/mm3 (4.00-11.30)
[2018-11-25 06:26] LABS: Albumin, Blood 2.1 g/dL (3.4-5.0); Anion Gap 7 mmol/L (6-16); Blood Urea Nitrogen 3 mg/dL (8-24); Bun/Creatinine Ratio 4.9 (12.0-20.0); CO2, Blood 24 mmol/L (21-32); Calcium, Blood 7.6 mg/dL (8.5-10.1); Chloride, Blood 110 mmol/L (98-108); Creatinine, Blood 0.61 mg/dL (0.40-1.00); Glomerular Filtration Rate >60 (60-); Glucose, Blood 102 mg/dL (70-99); Phosphorus, Blood 1.6 mg/dL (2.5-4.9); Potassium, Blood 2.8 mmol/L (3.5-5.5); Sodium, Blood 141 mmol/L (136-145)
--- NOTE | 2018-11-25 06:33 | NUR ---
SHIFT SUMMARY NO ACUTE CHANGES OVERNIGHT. PT ALERT AND ORIENTED WITH OCCASIONAL CONFUSION. PT INCONTINENT OF BOWEL ON ONE OCCASION AND WAS ABLE TO USE BED CANTRELL ON ANOTHER. BOTH BM'S LOOSE/JELLY CONSISTENCY. PT COMPLAINED OF PAIN R/T AMPUTATION. PER PT'S MEDICAL RECORDS FROM [facility] PT TAKES OXYCODONE 5MG Q6. CALL TO HOSPITALIST, 1 TIME DOSE ORDERED. WILL PASS ON TO DAYSHIFT NURSE POSSIBLY STARTING HOME MEDS. VSS. WILL REPORT TO DAYSHIFT NURSE.
--- NOTE | 2018-11-25 07:24 | NUR ---
ASSUMED CARE: PT RESTING QUIETLY IN BED. NO ACUTE NEEDS OR CONCERNS NOTED AT THIS TIME.
--- NOTE | 2018-11-25 13:52 | NUR ---
DR RAMIREZ HERE TO SEE PT. DISCUSSED POTASSIUM ORDER AND PT'S REQUEST FOR PAIN MEDS. SEE NEW ORDERS
--- NOTE | 2018-11-25 18:15 | NUR ---
PT. ARRIVED TO FLOOR VIA BED FROM ICU-9, DAUGHTER CAME UP WITH PT. GOT PT. SETTLED ALL MEDS HAD BEEN GIVEN AND DINNER TRAY GIVEN. REPORTED OFF TO ONCOMING SHIFT.
--- NOTE | 2018-11-25 18:20 | NUR ---
REPORT CALLED TO EVONNE CISNEROS. CENTRAL LINE PULLED WNL, MINIMAL BLEEDING. FAMILY AT BEDSIDE AND AWARE OF TRANSFER. NO ACUTE NEEDS OR CONCERNS.
[2018-11-26 05:18] LABS: BASOPHILS ABSOLUTE AUTO 0.05 K/mm3 (0.00-0.23); BASOPHILS PERCENT AUTO 0 % (0-2); EOSINOPHILS ABSOLUTE AUTO 0.32 K/mm3 (0.00-0.68); EOSINOPHILS PERCENT AUTO 3 % (0-6); Hematocrit 38.6 % (33.0-51.0); Hemoglobin 12.4 g/dL (11.5-16.0); IMMATURE GRAN ABSOLUTE AUTO 0.67 K/mm3 (0.00-0.10); IMMATURE GRAN PERCENT AUTO 6 % (0-1); LYMPHOCYTES ABSOLUTE AUTO 1.65 K/mm3 (0.84-5.20); LYMPHOCYTES PERCENT AUTO 14 % (21-46); MONOCYTES ABSOLUTE AUTO 0.89 K/mm3 (0.16-1.47); MONOCYTES PERCENT AUTO 7 % (4-13); Mean Corpuscular HGB 30.5 pg (26.0-34.0); Mean Corpuscular HGB Conc 32.1 g/dL (31.5-36.5); Mean Corpuscular Volume 95 fL (80-100); NEUTROPHILS PERCENT AUTO 71 % (41-73); RDW Coefficient Variation 13.3 % (11.7-14.2); RDW Standard Deviation 47.3 fL (35.1-46.3); Red Blood Cell Count 4.06 M/mm3 (3.80-5.20); White Blood Cell Count 12.18 K/mm3 (4.00-11.30)
[2018-11-26 05:33] LABS: Mean Platelet Volume 10.4 fL (9.1-12.4); Platelet Count 233 K/mm3 (150-400)
[2018-11-26 05:34] LABS: Albumin, Blood 2.4 g/dL (3.4-5.0); Anion Gap 7 mmol/L (6-16); Blood Urea Nitrogen 2 mg/dL (8-24); Bun/Creatinine Ratio 3.5 (12.0-20.0); CO2, Blood 24 mmol/L (21-32); Calcium, Blood 7.8 mg/dL (8.5-10.1); Chloride, Blood 109 mmol/L (98-108); Creatinine, Blood 0.58 mg/dL (0.40-1.00); Glomerular Filtration Rate >60 (60-); Glucose, Blood 110 mg/dL (70-99); Potassium, Blood 3.5 mmol/L (3.5-5.5); Sodium, Blood 140 mmol/L (136-145)
[2018-11-26 05:35] LABS: BAND PERCENT MAN 1 % (0-8); BASOPHILS PERCENT MAN 0 % (0-2); EOSINOPHILS ABSOLUTE MAN 0.48 K/mm3 (0.00-0.68); EOSINOPHILS PERCENT MAN 4 % (0-6); LYMPHOCYTES ABSOLUTE MAN 1.46 K/mm3 (0.84-5.20); LYMPHOCYTES PERCENT MAN 12 % (21-46); MONOCYTES ABSOLUTE MAN 1.33 K/mm3 (0.16-1.47); MONOCYTES PERCENT MAN 11 % (4-13); NEUTROPHILS ABSOLUTE MAN 8.89 K/mm3 (1.96-9.15); SEG NEUTROPHILS PERCENT MAN 72 % (41-73); TOTAL CELLS COUNTED 100
--- NOTE | 2018-11-26 06:06 | NUR ---
SHIFT SUMMARY PT IS A&O WITH SOME CONFUSION. VERY HO-CHUNK. PT IS VERY FORGETFUL, DENIES RECIEVING PAIN MEDS MINUTES AFTER ADMINISTERING THEM. PT CAN BECOME DEFENSIVE TOWARDS STAFF, BUT IS MOSTLY COOPERATIVE. 25 MCG IV FENTANYL GIVEN X2 FOR PAIN TO L STUMP. ON 3L VIA NC; BASELINE. NEW IV PLACED TONIGHT VIA ULTRASOUND. PT YELLS AND SCREAMS DURING REPOSITIONING AND TURNS. WILL CONT TO MONITOR AND PROVIDE CARE UNTIL PRESUMED BY ONCOMING RN.
--- NOTE | 2018-11-26 08:00 | NUR ---
PT. REPORTING PAIN IN THE ABDOMEN WILL GIVE MEDS ORDERED. PT. TRYING TO CALL SON TO COME GET HERE. PT. APPEARS CONFUSED TO WHERE SHE IS.
--- NOTE | 2018-11-26 13:36 | NUR ---
PT. SCREAMED AT ME TO GET OUT OF HER ROOM, GAVE HER THE PO VANCO AND SHE SPIT IT OUT. PT. VERY UNCOOPERATIVE AND SCREAMS AND CURSES AT STAFF WHEN THEY ARE GIVING CARE.
--- NOTE | 2018-11-26 17:24 | NUR ---
GAVE Poli ENRIQUEZ RN REPORT AND TURNED OVER PT. TO HER FOR THE REST OF THE SHIFT.
--- NOTE | 2018-11-26 18:53 | NUR ---
SHIFT SUMMARY- REPORT RECEIVED FROM AMELIA DOUGLASS. PT SITTING UP IN BED AWAKE. PT IRRITABLE AT TIMES AND HITS BEDSIDE TABLE WITH PHONE OR CALL LIGHT AND YELLS OUT. NO ACUTE CHANGES SINCE ASSUMING CARE OF PT.
--- NOTE | 2018-11-27 03:35 | NUR ---
PT has been alert confused, DTR called to express concern for confusion. Hx of remove CVA and dependent on narcotic oxycodone 5 mg po Q 4 to 6 hours. She has pain contract and uses 75 mcg fentanyl patch also. Has vauge co abd pain with cdiff colitis. DTR says PT is not usually confused and she has been very forgetful and inappropriate at times. Much improved over last night where she was yelling and screaming frequently. Hard of hearing, must face PT and speak loudly. Continues on oral vanco for cdiff. Very poor appetite. DTR says only bites taken last 5 days. PT says she is hungry but when offered food refuses. Bllod glucose 80's has required zero insulin per sliding scale. Perianal and chad area skin excoriated and painful. PT has been incontinent of bowel and bladder which DTR also says is not baseline for PT. CT scan has been done per DTR report. PT had oral tx for UTI prior to admission continues on bactrium. I have not medicated PT for pain this shift, denies need for pain med on fentanyl patch.
[2018-11-27 05:41] LABS: Albumin, Blood 2.4 g/dL (3.4-5.0); Anion Gap 9 mmol/L (6-16); Blood Urea Nitrogen 2 mg/dL (8-24); Bun/Creatinine Ratio 3.3 (12.0-20.0); CO2, Blood 23 mmol/L (21-32); Calcium, Blood 7.7 mg/dL (8.5-10.1); Chloride, Blood 111 mmol/L (98-108); Creatinine, Blood 0.62 mg/dL (0.40-1.00); Glomerular Filtration Rate >60 (60-); Glucose, Blood 96 mg/dL (70-99); Phosphorus, Blood 2.1 mg/dL (2.5-4.9); Potassium, Blood 3.3 mmol/L (3.5-5.5); Sodium, Blood 143 mmol/L (136-145)
--- NOTE | 2018-11-27 06:39 | NUR ---
pt continues with intermittant confusion, she is redirectable and less labile. Continues to co abd pain relieved by fentanyl 25 mcg x 1 and tylenol suppository. PT has not been recieving her scheduled narcotics here such as oxycodone 5 mg po Q 4 to 6 hours one 5/325 mg tab or fentanyl patch which was last changed on 11/20/18. She drank 1 chocolate ensure with set up and cues. Incontinent of bowel and bladder, wears attends, 2 max assist for toileting. Medicated x 1 with zofran fprnausea. At baseline oxygen, cough occ productive of daisha thick sputum.
--- NOTE | 2018-11-27 08:36 | NUR ---
PT NOTED TO HAVE A FENTANYL 75MCG PATCH TO THE LEFT UPPER BACK DATED FOR 11/20. PATCH REMOVED AND WASTED. NO ORDER FOR FENTANYL PATCH, WILL NOTIFY
[2018-11-27 08:56] LABS: BASOPHILS ABSOLUTE AUTO 0.08 K/mm3 (0.00-0.23); BASOPHILS PERCENT AUTO 1 % (0-2); EOSINOPHILS ABSOLUTE AUTO 0.19 K/mm3 (0.00-0.68); EOSINOPHILS PERCENT AUTO 1 % (0-6); Hematocrit 40.6 % (33.0-51.0); Hemoglobin 12.5 g/dL (11.5-16.0); IMMATURE GRAN ABSOLUTE AUTO 0.51 K/mm3 (0.00-0.10); IMMATURE GRAN PERCENT AUTO 4 % (0-1); LYMPHOCYTES ABSOLUTE AUTO 2.08 K/mm3 (0.84-5.20); LYMPHOCYTES PERCENT AUTO 15 % (21-46); MONOCYTES ABSOLUTE AUTO 1.04 K/mm3 (0.16-1.47); MONOCYTES PERCENT AUTO 8 % (4-13); Mean Corpuscular HGB 30.1 pg (26.0-34.0); Mean Corpuscular HGB Conc 30.8 g/dL (31.5-36.5); Mean Platelet Volume 10.7 fL (9.1-12.4); NEUTROPHILS ABSOLUTE AUTO 9.89 K/mm3 (1.96-9.15); NEUTROPHILS PERCENT AUTO 72 % (41-73); Platelet Count 217 K/mm3 (150-400); RDW Coefficient Variation 13.5 % (11.7-14.2); RDW Standard Deviation 48.3 fL (35.1-46.3); Red Blood Cell Count 4.15 M/mm3 (3.80-5.20); White Blood Cell Count 13.79 K/mm3 (4.00-11.30)
[2018-11-27 09:04] LABS: Mean Corpuscular Volume 98 fL (80-100)
--- NOTE | 2018-11-27 10:04 | NUR ---
KEYANNA NURSE FROM [facility] CALLED FOR UPDATE ON PT. UPDATE GIVEN. PER KEYANNA THEY WILL NOT BE COMING OVER TO ASSESS PT UPON DISCHARGE. THEY WOULD LIKE A CALL WHEN PT IS READY FOR DISCHARGE AND REQUESTING HOME HEALTH TO BE ORDERED.
--- NOTE | 2018-11-27 11:22 | NUR ---
DAUGHTER MICHAEL IN TO SEE PT AND REQUESTING UPDATE. DAUGHTER CONCERNED ABOUT PT GOING [facility] DUE TO HER INCREASED CARE NEEDS. I INFORMED HER THAT I UPDATED THE NURSE ON HOW SHE HAS BEEN INCONT OF URINE AND STOOL AND REQUIRING A 2 PERSON ASSIST, DAUGHTER REPORTS SHE FEELS THOUGH TOMORROW IS TO SOON FOR DISCHARGE.
--- NOTE | 2018-11-27 18:20 | NUR ---
SHIFT SUMMARY- PT WITH INTERMITTENT CONFUSION. PT HAS BEEN COOPERATIVE T/O THE DAY. LS DIMINISHED, ON 2L N/C, BASELINE OF 3L N/C. OCC HARSH COUGH. HRR. LEFT BKA. PT REQUIRING TURN Q2H. INCONT OF URINE AND STOOL, 2 BM'S THIS SHIFT. PT MEDICATED X2 WITH TRAMADOL, PT REPORTS PAIN TO ABD BUT APPEARS COMFORTABLE WHEN CHECKING IN ON PT. PT NOTED TO HAVE A FENTANYL PATCH FROM THE ON THIS AM, REMOVED AND SPOKE TO DR RAMIREZ REGARDING HOME REGIMIN, PER DR RAMIREZ WE WILL TRY TRAMADOL AT THIS TIME AND HOLD OFF ON ANYTHING ELSE. IV KPHOS GIVEN. PT WITH POOR ORAL INTAKE, ENCOURAGED ENSURES. DAUGHTER CONCERNED ABOUT PT GOING BACK TO [facility] TOMORROW DUE TO FEELING SHE WILL NOT GET ENOUGH CARE WHILE THERE, RN FROM [place] REPORTS OK FOR PT TO RETURN TOMORROW. NO OTHER ACUTE CHANGES THIS SHIFT.
[2018-11-28 05:29] LABS: BASOPHILS ABSOLUTE AUTO 0.05 K/mm3 (0.00-0.23); BASOPHILS PERCENT AUTO 0 % (0-2); EOSINOPHILS ABSOLUTE AUTO 0.26 K/mm3 (0.00-0.68); EOSINOPHILS PERCENT AUTO 2 % (0-6); Hemoglobin 11.3 g/dL (11.5-16.0); IMMATURE GRAN ABSOLUTE AUTO 0.44 K/mm3 (0.00-0.10); IMMATURE GRAN PERCENT AUTO 3 % (0-1); LYMPHOCYTES ABSOLUTE AUTO 2.07 K/mm3 (0.84-5.20); LYMPHOCYTES PERCENT AUTO 15 % (21-46); MONOCYTES PERCENT AUTO 8 % (4-13); Mean Corpuscular HGB 30.8 pg (26.0-34.0); Mean Corpuscular HGB Conc 31.4 g/dL (31.5-36.5); Mean Corpuscular Volume 98 fL (80-100); Mean Platelet Volume 10.6 fL (9.1-12.4); NEUTROPHILS ABSOLUTE AUTO 10.18 K/mm3 (1.96-9.15); NEUTROPHILS PERCENT AUTO 72 % (41-73); Platelet Count 214 K/mm3 (150-400); RDW Coefficient Variation 13.6 % (11.7-14.2); RDW Standard Deviation 48.8 fL (35.1-46.3); Red Blood Cell Count 3.67 M/mm3 (3.80-5.20)
[2018-11-28 06:03] LABS: Albumin, Blood 2.4 g/dL (3.4-5.0); Anion Gap 5 mmol/L (6-16); Blood Urea Nitrogen 3 mg/dL (8-24); CO2, Blood 26 mmol/L (21-32); Calcium, Blood 7.6 mg/dL (8.5-10.1); Chloride, Blood 108 mmol/L (98-108); Glomerular Filtration Rate >60 (60-); Glucose, Blood 107 mg/dL (70-99); Phosphorus, Blood 3.1 mg/dL (2.5-4.9); Potassium, Blood 3.5 mmol/L (3.5-5.5); Sodium, Blood 139 mmol/L (136-145)
--- NOTE | 2018-11-28 07:56 | NUR ---
SHIFT SUMMARY: PATIENT HAS A GOOD NIGHT. PLEASANT AND COOPERATIVE. IV INFILTRATED AT BEGINING OF THE SHIFT. HAD CHARGE NURSE PLACE ANOTHER ONE, THIS ALSO INFILTRATED EARLY THIS MORNING. PAIN WAS MANAGED THROUGH ULTRAM AND TYLENOL. MEDS WERE GIVEN PER EMAR. IV INFUSED UP TO INFILTRATION. CALL WAS PLACED TO DOCTOR AND GOT ALL MEDS CHANGED TO PO MEDS. IV TO BE LEFT OUT.NO ACUTE CHANGES OCCURED THIS SHIFT. REPORT WAS GIVEN TO DAY SHIFT RN.
--- NOTE | 2018-11-28 17:12 | NUR ---
NO ACUTE CHANGES NOTED. PATIENT WORK WITH THERAPY BUT WAS UNHAPPY ABOUT BEING BOTHERED. PATIENT HAS SOME MILD DISCOMFORT NOTED FROM CHRONIC GENERALISED PAIN BUT IT IS RELEIVED WITH PRN MEDICATION. PATIENT REMAINS ON 2-3 LITER O2 VIA NASAL CANULA WHICH IS HER BASELINE AT HOME. NO OTHER ISSUES NOTED, WILL CONTINUE TO MONITOR FOR CHANGES.
--- NOTE | 2018-11-29 01:44 | NUR ---
1929 ASSUMED CARE OF PATIENT. PATIENT SITTING UP IN BED WATCHING TV. PT AO4, YSLETA [place] SUR. STATES PAIN 09/03, DAY RN SAID SHE JUST GAVE PAIN MED. 2029: MDS GIVEN PER EMAR, ASSESSMENT COMPLETED. PT REQ PAIN MED. BED LOW AND LOCKED. BS = 102; GAVE PATIENT SOME JUICE. 2199: PT REQ PAIN MED. BUT DECLINES TYLENOL SUPPOSITORY. ADVISE WILL ASK MEDICAL COLLECTIONS HOPSITALIST KARINA. 2329: SPOKE TO WOUND/OSTOMY NURSE SWETHA RUFFIN PO TYLENOL OR A ONE-TIME DOSE OF PATIENT HOME MED OXICODONE 5MG PO. NO NEW ORDERS RECEIVED.
--- NOTE | 2018-11-30 06:37 | NUR ---
Rn summary: Patient is alert and oriented. Pt has been cooperative except did refuse lab draw this am. Pt was incontinent of urine and large stool x1. Pt needs to be encouraged to reposition in bed. Pt has some breakdown under rt breast . Pt does c/o pain to LBKA. She was medicated with tylenol and ultram without good relief. Pt did receive 5mg of roxicodone with good relief and rested well. Pt stool was brown, soft and with mucus. Pt is taking Vano orally as ordered. Call light in reach. Will continue to monitor.
[2018-11-30 17:12] LABS: BASOPHILS ABSOLUTE AUTO 0.03 K/mm3 (0.00-0.23); BASOPHILS PERCENT AUTO 0 % (0-2); EOSINOPHILS ABSOLUTE AUTO 0.18 K/mm3 (0.00-0.68); EOSINOPHILS PERCENT AUTO 2 % (0-6); Hematocrit 34.6 % (33.0-51.0); Hemoglobin 10.7 g/dL (11.5-16.0); IMMATURE GRAN ABSOLUTE AUTO 0.13 K/mm3 (0.00-0.10); IMMATURE GRAN PERCENT AUTO 1 % (0-1); LYMPHOCYTES ABSOLUTE AUTO 1.79 K/mm3 (0.84-5.20); LYMPHOCYTES PERCENT AUTO 19 % (21-46); MONOCYTES ABSOLUTE AUTO 0.59 K/mm3 (0.16-1.47); MONOCYTES PERCENT AUTO 6 % (4-13); Mean Corpuscular HGB 30.7 pg (26.0-34.0); Mean Corpuscular HGB Conc 30.9 g/dL (31.5-36.5); Mean Corpuscular Volume 99 fL (80-100); Mean Platelet Volume 10.1 fL (9.1-12.4); NEUTROPHILS ABSOLUTE AUTO 6.88 K/mm3 (1.96-9.15); NEUTROPHILS PERCENT AUTO 72 % (41-73); Platelet Count 263 K/mm3 (150-400); RDW Coefficient Variation 13.6 % (11.7-14.2); RDW Standard Deviation 49.7 fL (35.1-46.3); Red Blood Cell Count 3.48 M/mm3 (3.80-5.20)
--- NOTE | 2018-11-30 19:49 | NUR ---
SHIFT SUMMARY- PT HAS HAD NO ACUTE CHANGES T/O THE SHIFT. PT HAS PAIN AND IS BEING MEDICATED REGULARLY FOR IT. PAIN IS IN THE LEFT BKA, THIS IS CHRONIC FOR THE PT. PAIN MED IS HER HOME DOSE. PT TO DISCHARGE TO [facility] SATURDAY.
--- NOTE | 2018-12-01 04:43 | NUR ---
SHIFT SUMMARY PT ADMITTED FOR PNEUMONIA. SHE IS DNR. DIET IS SOFT BITE SIZE. SHE REFUSES TO BE TURNED SAYS SHE "TURNS SELF". SHE HAS COMPLAINED OF PAIN IN HER LEFT BKA. I ATTEMPTED INTERVENTIONS SUCH REPOSITION DISTRACTION THERAPY AND FOCUSED SLOW DEEP BREATHING, BUT WITH NO SUCCESS SO PT MEDICATED PER EMAR. PLAN IS TO D/C TO [facility]. WILL CONTINUE TO MONITOR
[2018-12-01] MEDS ORDERED: TRAM50 PO (10:50)
[2018-12-01] MEDS ORDERED: Florastor250 MG PO (10:51)
[2018-12-01] MEDS ORDERED: VANCOCIN HCL125 MG PO (10:52)
--- NOTE | 2018-12-01 12:41 | NUR ---
PT DCD HOME TO [facility]. MED LIST AND DC INSTRUCTIONS FAXED BY CASE MANAGEMENT. REPORT CALLED TO FACILITY. PT TRANSPORTED VIA MEDICAL W/C TRANSPORT. ALL PERSONAL BELONGINGS SENT WITH PT. PT STABLE ON DC.
== END 2018-12-01 12:39 | disposition home health service (06) | DRG 871 ==
LOC: ER 13:19 → ICUW 17:36 → MEDS 11-25 18:10 → ENPENDDIS 12-01 10:11 → MEDS 12-01 12:39
PROVIDERS: Emergency Medicine; Internal Medicine Critical Care Medicine; Nurse Practitioner Acute Care; ADMIT Family Medicine
PROC: 02HV33Z Insertion of Infusion Device into Superior Vena Cava, Percutaneous Approach (ICD-10-PCS; principal; 2018-11-23)
PROC: 3E043XZ Introduction of Vasopressor into Central Vein, Percutaneous Approach (ICD-10-PCS; 2018-11-23)
DX: A41.9 Sepsis, unspecified organism (principal); R65.21 Severe sepsis with septic shock; G93.41 Metabolic encephalopathy; J18.9 Pneumonia, unspecified organism; N17.9 Acute kidney failure, unspecified; J96.11 Chronic respiratory failure with hypoxia; E87.1 Hypo-osmolality and hyponatremia; A04.72 Enterocolitis due to Clostridium difficile, not specified as recurrent; J44.0 Chronic obstructive pulmonary disease with (acute) lower respiratory infection; Z99.81 Dependence on supplemental oxygen; I25.10 Atherosclerotic heart disease of native coronary artery without angina pectoris; Z95.5 Presence of coronary angioplasty implant and graft; Z86.73 Personal history of transient ischemic attack (TIA), and cerebral infarction without residual deficits; Z89.512 Acquired absence of left leg below knee; K21.9 Gastro-esophageal reflux disease without esophagitis; M79.7 Fibromyalgia; E87.6 Hypokalemia; D63.8 Anemia in other chronic diseases classified elsewhere; E83.39 Other disorders of phosphorus metabolism; E83.51 Hypocalcemia; E11.51 Type 2 diabetes mellitus with diabetic peripheral angiopathy without gangrene; I95.9 Hypotension, unspecified; Z87.891 Personal history of nicotine dependence
CPT/HCPCS: 0097U; 0099U; 36415; 36556; 70450; 71045; 74176; 80048; 80053; 80069; 80202; 81001; 82330; 82550; 82803; 82947; 83605; 83735; 83880; 84100; 84484; 85025; 87040; 87070; 87077; 87086; 87186; 87205; 87324; 93005; 93010; 94640; 94760; 96365; 96366; 96367; 97110; 97162; 97165; 97530; 99285-25; A9270; C1751; C9113; J0696; J1815; J2405; J2543; J3010; J3370; J3475; J3480; J7030; J7050; J7060; J7120; P9046; P9612

== ENCOUNTER → 2018-12-03 | Outpatient (CLI) | payer OTHER ==
[~2018-12-03] MED LIST changes: +ASPERCREME1 EACH TOP; +Anti-Diarrheal2 MG PO; +BISA10S PR; +Florastor250 MG PO; +GERI LANTA PO; +Milk Of Ma400 MG/5 M PO; +NOVOLOG FL100 UNIT/1 SC; +Pedi-Dri 100,0060 GM TOP; +Secura Protecti50 GM TOP; +VANCOCIN HCL125 MG PO
== END | disposition home or self-care (01) ==
LOC: LAB 18:35 → LAB SHORT 18:35
DX: R32 Unspecified urinary incontinence (principal)
CPT/HCPCS: 87086

== ENCOUNTER → 2019-07-13 | Outpatient (CLI) | payer OTHER ==
[2019-07-14 00:01] LABS: Appearance, Urine Cloudy (Clear); Bilirubin, Urine Neg (Neg); Blood, Urine 2+ (Neg); Color, Urine Yellow (P-Yellow); Glucose Qualitative, Urine 4+ (Neg); Ketones, Urine Neg (Neg); Leukocyte Esterase, Urine 3+ (Neg); Nitrite, Urine Neg (Neg); Protein, Urine 2+ (Neg); Urobilinogen, Urine NORM (Normal)
[2019-07-14 00:07] LABS: Red Blood Cells, Urine 0-2 /hpf (0-2); White Blood Cells, Urine TNTC /hpf (0-5)
[2019-07-14 00:08] LABS: Bacteria Mod /hpf; Squamous Epithelial Cells Mod /hpf (Few); Yeast/Fungi Urine Mod /hpf
== END | disposition home or self-care (01) ==
PROVIDERS: Family Medicine
DX: N39.0 Urinary tract infection, site not specified (principal)

== ENCOUNTER → 2019-07-28 | Outpatient (CLI) | payer OTHER | END | disposition home or self-care (01) | LOC: LAB SHORT 13:39 → LAB 13:39 | DX: R32 Unspecified urinary incontinence (principal) | CPT/HCPCS: 87086 ==

== ENCOUNTER → 2019-11-03 | Outpatient (CLI) | payer OTHER ==
[2019-11-03 19:52] LABS: Appearance, Urine Hazy (Clear); Bilirubin, Urine Neg (Neg); Blood, Urine 1+ (Neg); Color, Urine Yellow (P-Yellow); Glucose Qualitative, Urine 2+ (Neg); Ketones, Urine 1+ (Neg); Leukocyte Esterase, Urine 3+ (Neg); Nitrite, Urine Pos (Neg); Protein, Urine 2+ (Neg); Urobilinogen, Urine 1+ (Normal)
[2019-11-03 20:08] LABS: Bacteria Many /hpf; Red Blood Cells, Urine Rare /hpf (0-2); Squamous Epithelial Cells Few /hpf (Few); White Blood Cells, Urine TNTC /hpf (0-5)
== END | disposition home or self-care (01) ==
LOC: LAB SHORT 18:14 → LAB 18:14
PROVIDERS: Family Medicine
DX: N39.0 Urinary tract infection, site not specified (principal)
CPT/HCPCS: 81001; 87077; 87086; 87186

== ENCOUNTER → 2019-11-19 | Outpatient (CLI) | payer OTHER ==
[2019-11-19 23:28] LABS: Appearance, Urine Turbid (Clear); Bilirubin, Urine Neg (Neg); Blood, Urine 4+ (Neg); Color, Urine Yellow (P-Yellow); Glucose Qualitative, Urine 2+ (Neg); Ketones, Urine Neg (Neg); Leukocyte Esterase, Urine 3+ (Neg); Nitrite, Urine Pos (Neg); Protein, Urine 3+ (Neg); Urobilinogen, Urine NORM (Normal)
[2019-11-19 23:33] LABS: White Blood Cells, Urine TNTC /hpf (0-5)
[2019-11-19 23:34] LABS: Bacteria Many /hpf; Red Blood Cells, Urine 0-2 /hpf (0-2); Squamous Epithelial Cells Not Seen /hpf (Few)
== END | disposition home or self-care (01) ==
LOC: LAB SHORT 23:21 → LAB 23:21
PROVIDERS: Family Medicine
DX: N39.0 Urinary tract infection, site not specified (principal)
CPT/HCPCS: 81001; 87077; 87086; 87186

== ENCOUNTER → 2020-03-30 | Outpatient (CLI) | payer OTHER ==
[2020-03-30 15:38] LABS: Appearance, Urine Cloudy (Clear); Bilirubin, Urine Neg (Neg); Blood, Urine 3+ (Neg); Color, Urine Yellow (P-Yellow); Glucose Qualitative, Urine Neg (Neg); Ketones, Urine 1+ (Neg); Leukocyte Esterase, Urine 3+ (Neg); Nitrite, Urine Pos (Neg); Protein, Urine 3+ (Neg); Specific Gravity, Urine 1.025 (1.003-1.022); Urobilinogen, Urine NORM (Normal)
[2020-03-30 15:57] LABS: Bacteria Many /hpf; Squamous Epithelial Cells Few /hpf (Few); White Blood Cells, Urine TNTC /hpf (0-5)
== END | disposition home or self-care (01) ==
LOC: LAB SHORT 14:17 → LAB 14:17
PROVIDERS: Family Medicine
DX: N39.0 Urinary tract infection, site not specified (principal)
CPT/HCPCS: 81001; 87077; 87086; 87186

== ENCOUNTER → 2020-04-18 | Outpatient (CLI) | payer OTHER ==
[2020-04-18 12:55] LABS: Appearance, Urine Cloudy (Clear); Bilirubin, Urine Neg (Neg); Blood, Urine 3+ (Neg); Color, Urine Yellow (P-Yellow); Glucose Qualitative, Urine 3+ (Neg); Ketones, Urine 1+ (Neg); Leukocyte Esterase, Urine 3+ (Neg); Nitrite, Urine Neg (Neg); Protein, Urine 3+ (Neg); Specific Gravity, Urine 1.025 (1.003-1.022); Urobilinogen, Urine NORM (Normal)
[2020-04-18 13:24] LABS: Bacteria Mod /hpf; Squamous Epithelial Cells Few /hpf (Few); White Blood Cells, Urine TNTC /hpf (0-5)
[2020-04-18 13:28] LABS: Yeast/Fungi Urine Few /hpf
== END | disposition home or self-care (01) ==
LOC: LAB SHORT 10:50 → PLD 10:50
PROVIDERS: Family Medicine
DX: N39.0 Urinary tract infection, site not specified (principal)
CPT/HCPCS: 81001

== ENCOUNTER → 2020-06-14 | Outpatient (CLI) | payer OTHER ==
[2020-06-14 19:20] LABS: Appearance, Urine Turbid (Clear); Bilirubin, Urine Neg (Neg); Blood, Urine 1+ (Neg); Color, Urine Yellow (P-Yellow); Glucose Qualitative, Urine 1+ (Neg); Ketones, Urine Neg (Neg); Leukocyte Esterase, Urine 3+ (Neg); Nitrite, Urine Neg (Neg); Protein, Urine 3+ (Neg); Urobilinogen, Urine NORM (Normal)
[2020-06-14 19:37] LABS: Bacteria Many /hpf; Squamous Epithelial Cells Few /hpf (Few)
[2020-06-14 19:48] LABS: Other Crystals Many /hpf
== END | disposition home or self-care (01) ==
LOC: LAB SHORT 14:55 → LAB 14:55
PROVIDERS: Family Medicine
DX: N39.0 Urinary tract infection, site not specified (principal)
CPT/HCPCS: 81001; 87077; 87086; 87186

== ENCOUNTER 2020-12-16 18:26 | Emergency (ER) | payer OTHER ==
[~2020-12-16] VITALS: Ht 165.1 cm; Wt 81.7 kg
[~2020-12-16 18:26] MED LIST changes: +NYSTOP15 GM TOP; -Pedi-Dri 100,0060 GM TOP; -VITAMIN D-32000 UNIT PO; +Vitamin D1000 UNI1 PO
[2020-12-16 19:32] LABS: Source, Urine Catheter
[2020-12-16 19:37] LABS: Appearance, Urine Clear (Clear); Bilirubin, Urine Neg (Neg); Blood, Urine 3+ (Neg); Color, Urine Yellow (P-Yellow); Glucose Qualitative, Urine Neg (Neg); Ketones, Urine Neg (Neg); Leukocyte Esterase, Urine 2+ (Neg); Nitrite, Urine Neg (Neg); Protein, Urine 3+ (Neg); Specific Gravity, Urine 1.015 (1.003-1.022); Urobilinogen, Urine NORM (Normal)
[2020-12-16 19:46] LABS: Bacteria Mod /hpf
[2020-12-16 19:47] LABS: Granular Casts Rare /lpf (0); Squamous Epithelial Cells Few /hpf (Few); Transitional Epithelial Cells Few /hpf (0-Rare); White Blood Cells, Urine 25-50 /hpf (0-5)
[2020-12-16 19:48] LABS: Red Blood Cells, Urine 0-2 /hpf (0-2)
[2020-12-16] MEDS ORDERED: AMLO5 PO (20:03)
[2020-12-16] MEDS ORDERED: IPRAT-ALBUT 0.5-3 ML NEB (20:04)
[2020-12-16] MEDS ORDERED: BASAGLAR K100 UNIT/3 SC (20:05)
[2020-12-16 20:06] LABS: BASOPHILS ABSOLUTE AUTO 0.01 K/mm3 (0.00-0.23); BASOPHILS PERCENT AUTO 0 % (0-2); EOSINOPHILS ABSOLUTE AUTO 0.01 K/mm3 (0.00-0.68); EOSINOPHILS PERCENT AUTO 0 % (0-6); Hematocrit 35.6 % (33.0-51.0); Hemoglobin 11.4 g/dL (11.5-16.0); IMMATURE GRAN ABSOLUTE AUTO 0.04 K/mm3 (0.00-0.10); IMMATURE GRAN PERCENT AUTO 1 % (0-1); LYMPHOCYTES PERCENT AUTO 18 % (21-46); MONOCYTES ABSOLUTE AUTO 0.46 K/mm3 (0.16-1.47); MONOCYTES PERCENT AUTO 9 % (4-13); Mean Corpuscular HGB 32.2 pg (26.0-34.0); Mean Corpuscular Volume 101 fL (80-100); Mean Platelet Volume 10.3 fL (9.1-12.4); NEUTROPHILS ABSOLUTE AUTO 3.47 K/mm3 (1.96-9.15); NEUTROPHILS PERCENT AUTO 71 % (41-73); Platelet Count 163 K/mm3 (150-400); RDW Coefficient Variation 13.2 % (11.7-14.2); RDW Standard Deviation 49.2 fL (35.1-46.3); Red Blood Cell Count 3.54 M/mm3 (3.80-5.20); White Blood Cell Count 4.89 K/mm3 (4.00-11.30)
[2020-12-16] MEDS ORDERED: LOSARTAN POTAS100 M1 PO (20:06)
[2020-12-16] MEDS ORDERED: OXAYDO5 M1 PO (20:10)
[2020-12-16] MEDS ORDERED: NOVOLOG FL100 UNIT/3 SC (20:12)
[2020-12-16 20:28] LABS: Alanine Aminotransfer (ALT/SGP 16 U/L (12-78); Albumin, Blood 3.2 g/dL (3.4-5.0); Albumin/Globulin Ratio 0.7 (0.8-1.8); Alk Phos 38 U/L (50-136); Anion Gap 6 mmol/L (6-16); Aspartate Aminotrans (AST/SGOT 26 U/L (12-37); Bilirubin, Total 0.4 mg/dL (0.1-1.0); Blood Urea Nitrogen 21 mg/dL (8-24); Bun/Creatinine Ratio 24.5 (12.0-20.0); CO2, Blood 26 mmol/L (21-32); Calcium, Blood 8.7 mg/dL (8.5-10.1); Chloride, Blood 106 mmol/L (98-108); Creatinine, Blood 0.86 mg/dL (0.40-1.00); Globulin, Blood 4.9 g/dL (2.2-4.0); Glomerular Filtration Rate >60 (60-); Glucose, Blood 138 mg/dL (70-99); Potassium, Blood 4.2 mmol/L (3.5-5.5); Sodium, Blood 138 mmol/L (136-145); Total Protein, Blood 8.1 g/dL (6.4-8.2); Troponin I <0.015 ng/mL (0.000-0.040)
[2020-12-16 20:32] LABS: Thyroid Stimulating Hormone 0.377 uIU/mL (0.360-4.800)
[2020-12-16] MEDS ORDERED: CEPH500 PO (21:18)
[2020-12-18] MEDS ORDERED: GABAPENTIN600 MG PO (04:38)
== END 2020-12-16 21:52 | disposition home or self-care (01) ==
LOC: ER 18:26
PROVIDERS: Emergency Medicine
DX: N39.0 Urinary tract infection, site not specified (principal); R41.82 Altered mental status, unspecified; J44.9 Chronic obstructive pulmonary disease, unspecified; I25.10 Atherosclerotic heart disease of native coronary artery without angina pectoris; I25.2 Old myocardial infarction; I10 Essential (primary) hypertension; E78.5 Hyperlipidemia, unspecified; Z86.73 Personal history of transient ischemic attack (TIA), and cerebral infarction without residual deficits; Z88.5 Allergy status to narcotic agent; Z88.8 Allergy status to other drugs, medicaments and biological substances; Z87.891 Personal history of nicotine dependence; Z79.899 Other long term (current) drug therapy
CPT/HCPCS: 36415; 71045; 80053; 81001; 83880; 84443; 84484; 85025; 87077; 87086; 87186; 93005; 93010; 96365; 99285-25; J0696

== ENCOUNTER 2020-12-30 08:46 | Inpatient (IN) | payer OTHER ==
[~2020-12-30] VITALS: Ht 152.4 cm; Wt 64.4 kg
[~2020-12-30 08:46] MED LIST changes: +BASAGLAR K100 UNIT/3 SC; +GABAPENTIN600 MG PO; +IPRAT-ALBUT 0.5-3 ML NEB; +LACT PO; +LOSARTAN POTAS100 M1 PO; +NOVOLOG FL100 UNIT/3 SC; +OXAYDO5 M1 PO; +Pulmicort Fle180 MCG INH
[2020-12-30 09:10] LABS: BASOPHILS ABSOLUTE AUTO 0.06 K/mm3 (0.00-0.23); BASOPHILS PERCENT AUTO 0 % (0-2); EOSINOPHILS PERCENT AUTO 0 % (0-6); Hematocrit 37.8 % (33.0-51.0); Hemoglobin 11.4 g/dL (11.5-16.0); IMMATURE GRAN ABSOLUTE AUTO 0.36 K/mm3 (0.00-0.10); IMMATURE GRAN PERCENT AUTO 1 % (0-1); LYMPHOCYTES PERCENT AUTO 7 % (21-46); MONOCYTES ABSOLUTE AUTO 1.78 K/mm3 (0.16-1.47); MONOCYTES PERCENT AUTO 7 % (4-13); Mean Corpuscular HGB 31.9 pg (26.0-34.0); Mean Corpuscular HGB Conc 30.2 g/dL (31.5-36.5); Mean Corpuscular Volume 106 fL (80-100); NEUTROPHILS ABSOLUTE AUTO 23.06 K/mm3 (1.96-9.15); NEUTROPHILS PERCENT AUTO 85 % (41-73); Platelet Count 250 K/mm3 (150-400); RDW Coefficient Variation 13.5 % (11.7-14.2); Red Blood Cell Count 3.57 M/mm3 (3.80-5.20); White Blood Cell Count 27.16 K/mm3 (4.00-11.30)
[2020-12-30 09:22] LABS: Base Excess Venous 2.2 mmol/L; PCO2 Venous 44.3 mmHg (38-42); PO2 Venous 73.6 mmHg (38-42)
[2020-12-30] MEDS ORDERED: QVAR REDIHALE10.6 G2 INH (09:27)
[2020-12-30] MEDS ORDERED: VISBIOME 112.51 EACH PO (09:28)
[2020-12-30] MEDS ORDERED: INSULANPEN SC (09:28)
[2020-12-30 09:41] LABS: Alanine Aminotransfer (ALT/SGP 39 U/L (12-78); Albumin, Blood 2.8 g/dL (3.4-5.0); Albumin/Globulin Ratio 0.6 (0.8-1.8); Alk Phos 47 U/L (50-136); Anion Gap 6 mmol/L (6-16); Aspartate Aminotrans (AST/SGOT 18 U/L (12-37); Bilirubin, Total 0.5 mg/dL (0.1-1.0); Blood Urea Nitrogen 28 mg/dL (8-24); Bun/Creatinine Ratio 32.9 (12.0-20.0); CO2, Blood 28 mmol/L (21-32); Calcium, Blood 9.5 mg/dL (8.5-10.1); Chloride, Blood 102 mmol/L (98-108); Creatinine, Blood 0.85 mg/dL (0.40-1.00); Glomerular Filtration Rate >60 (60-); Glucose, Blood 288 mg/dL (70-99); Potassium, Blood 4.3 mmol/L (3.5-5.5); Sodium, Blood 136 mmol/L (136-145); Total Protein, Blood 7.8 g/dL (6.4-8.2); Troponin I <0.015 ng/mL (0.000-0.040)
--- NOTE | 2020-12-30 18:30 | NUR ---
PTARRIVES THIS AFTERNOON FROM ER ON NRB MASK, PT WAS THEN PLACED ON 4L O2 VIA NASAL CANNULA WHICH SHE IS TOLERATING WELL AT 97% SPO2. PT IS AGITATED, CONFUSED AND ANGRY, PT TELLS STAFF TO "FUCK OFF" WHEN HER DEMANDS FOR WATER ARE MET WITH EDUCATION ABOUT HER NPO STATUS. SPEECH THERAPY DID ATTEMPT TO ASSESS PT BUT RELATED TO HER AMS THEY DID NOT PERFORM EVAL TODAY. QUICK BEDSIDE SWALLOW WAS PERFORMED TO ASSESS IF PT CAN TAKE XARELTO PO WHICH SHE PASSED, SHE BEGAN CURSING AT STAFF WHEN PROVIDED WITH ENOUGH WATER TO TAKE PILLS SAFELY AND NOT AN ENTIRE CUP. PT'S DAUGTHER MICHAEL WAS UPDATED.
--- NOTE | 2020-12-31 00:44 | NUR ---
DR RAMIREZ WAS CALLED TO BE NOTIFED THE PATIENT WAS HAVING LOW BLOOD PRESSURES OF 71/50 (58) WITH RECHECK OF 66/53(58) DESPITE BEING ON 100ML/HR NS. THE DR WAS ALSO NOTIFIED OF RN'S CONCERN OF THE PATIENT RUNNING A LOW GRADE TEMPERATURE, FEELING LETHARGIC. DR RAMIREZ WAS NOTIFED A LACTIC ACID WAS DONE DURING THE DAY WHICH WAS 2.9 THEN DROPPED TO 2.3. ONLY ONE BOLUS OF NS 1 L WAS DONE IN THE ED. THE PATIENT WAS CURRENLTY ON ANTIBIOTICS. BLOOD CUTURE WERE ALSO DONE IN THE ED.
--- NOTE | 2020-12-31 02:00 | NUR ---
DR RAMIREZ REQUESTED RN CALL HER BACK AFTER THE FLUID BOLUS. SO RN CALLED AFTER AND MD WAS NOTIFED THE BLOOD PRESSURE WAS STILL LOW 94/48(64) WITH RECHECK OF 100/41 (59). DR RAMIREZ REQUESTED THE PATIENT BE TRANSFERED TO ICU AND GET STARTED ON A LEVOPHED DRIP WITH THE 100ML/HR STILL RUNNING.
--- NOTE | 2020-12-31 03:00 | NUR ---
THE PATIENT'S DAUGHTER MICHAEL TILLEY WAS CALLED TO NOTIFY HER THAT HER MOTHER WAS TRANSFERED TO ICU DUE TO HER LOW BLOOD PRESSURES AND FOR CLOSER MONITORING. SHE ASKED WHAT ROOM HER MOM WAS GOING INTO AND RN STATED SHE GOING INTO ROOM ICU12. NO FURTHER QUESTIONS WERE ASKED.
[2020-12-31 04:12] LABS: Alanine Aminotransfer (ALT/SGP 22 U/L (12-78); Albumin, Blood 2.1 g/dL (3.4-5.0); Albumin/Globulin Ratio 0.5 (0.8-1.8); Alk Phos 40 U/L (50-136); Anion Gap 5 mmol/L (6-16); Aspartate Aminotrans (AST/SGOT 11 U/L (12-37); Bilirubin, Total 0.4 mg/dL (0.1-1.0); Blood Urea Nitrogen 19 mg/dL (8-24); Bun/Creatinine Ratio 25.9 (12.0-20.0); CO2, Blood 26 mmol/L (21-32); Calcium, Blood 8.2 mg/dL (8.5-10.1); Chloride, Blood 112 mmol/L (98-108); Creatinine, Blood 0.74 mg/dL (0.40-1.00); Globulin, Blood 4.1 g/dL (2.2-4.0); Glomerular Filtration Rate >60 (60-); Glucose, Blood 152 mg/dL (70-99); Magnesium, Blood 1.6 mg/dL (1.6-2.4); Potassium, Blood 4.1 mmol/L (3.5-5.5); Sodium, Blood 143 mmol/L (136-145); Total Protein, Blood 6.2 g/dL (6.4-8.2)
[2020-12-31 04:22] LABS: BASOPHILS ABSOLUTE AUTO 0.03 K/mm3 (0.00-0.23); BASOPHILS PERCENT AUTO 0 % (0-2); EOSINOPHILS ABSOLUTE AUTO 0.08 K/mm3 (0.00-0.68); EOSINOPHILS PERCENT AUTO 1 % (0-6); Hematocrit 30.2 % (33.0-51.0); Hemoglobin 9.1 g/dL (11.5-16.0); IMMATURE GRAN ABSOLUTE AUTO 0.13 K/mm3 (0.00-0.10); IMMATURE GRAN PERCENT AUTO 1 % (0-1); LYMPHOCYTES ABSOLUTE AUTO 1.27 K/mm3 (0.84-5.20); LYMPHOCYTES PERCENT AUTO 8 % (21-46); MONOCYTES ABSOLUTE AUTO 1.33 K/mm3 (0.16-1.47); MONOCYTES PERCENT AUTO 8 % (4-13); Mean Corpuscular HGB 31.7 pg (26.0-34.0); Mean Corpuscular HGB Conc 30.1 g/dL (31.5-36.5); Mean Corpuscular Volume 105 fL (80-100); Mean Platelet Volume 11.8 fL (9.1-12.4); NEUTROPHILS ABSOLUTE AUTO 13.55 K/mm3 (1.96-9.15); NEUTROPHILS PERCENT AUTO 83 % (41-73); Platelet Count 201 K/mm3 (150-400); RDW Coefficient Variation 13.9 % (11.7-14.2); RDW Standard Deviation 53.3 fL (35.1-46.3); Red Blood Cell Count 2.87 M/mm3 (3.80-5.20); White Blood Cell Count 16.39 K/mm3 (4.00-11.30)
--- NOTE | 2020-12-31 06:17 | NUR ---
SHIFT SUMMARY: PT ARRIVED FROM PCU TO ICU 12. RECEIVED REPORT FROM AMELIA HORTA. SHE WAS SLEEPING BUT AROUSABLE. SHE IS ALERT TO SELF AND SITUATION ONLY AND HARD OF HEARING. SHE ARRIVED ON 3L NC BUT DESATS WHEN SLEEPING TO 85% SO RT PLACED HER ON HFNC AT 15L AND IS CURRENTLY SATING 100%. HER HR HAS REMAINED IN THE 70-80'S. HER MAP ON ARRIVAL WAS 58 SO STARTED LEVO AND TITRATED UP TO 5MCG/MIN. MAP IS CURRENTLY 88 AND LEVO IS INFUSING AT 4MCG/MIN. NS IS ALSO INFUSING AT 100ML/HR. SHE IS WEARING A BRIEF FOR URINARY INCONT. BUT HAS NOT VOIDED YET THIS MORNING. NO BM THIS SHIFT AND SHE HAS REMAINED AFEBRILE. SHE IS NPO FOR POSSIBLE ASPIRATION. THERE IS A STAGE II NOTED TO THE COCCYX WITH A C/D/I MEPILEX IN PLACE. THERE IS SCABBING NOTED TO HER RIGHT UPPER ARM. WILL REPORT TO ONCOMING RN WHEN AVAILABLE.
--- NOTE | 2020-12-31 12:03 | NUR ---
[facility] referral received due to readmission. Case conferenced with ICU staff. Pt transferred from PCU to ICU during the night. Pt asleep at present. Glenny is aware that pt is currently in ICU. I will try to make contact with family today or tomorrow as staffing allows. Pt resides at [facility]. Glenny is Shiv Case [phone].
--- NOTE | 2020-12-31 12:49 | NUR ---
REASSESSMENT PT HAS BEEN RESTING IN BED THROUGHOUT THE MORNING. SHE SLEEPS WHEN NO ONE IS IN THE ROOM, BUT EASILY WAKES TO VOICE WHEN PEOPLE ARE IN THE ROOM. SHE IS HARD OF HEARING, RIGHT EAR APPEARS TO HAVE BETTER HEARING THAN LEFT, ORIENTED TO SELF AND SURROUNDINGS. HER BREATHING SOUDNS VERY COARSE, BUT WHEN COACHED PT IS ABLE TO COUGH UP A LARGE AMOUNT OF THICK, CREAMY YELLOW SPUTUM. HER BREATHING SOUNDS BETTER FOR A FEW MINUTES AFTER THAT BUT QUICKLY RETURNS TO COARSE SOUNDING. SHE IS ON 6L/NC. LEVOPHED WAS TURNED OFF AT THE START OF SHIFT AND MAP HAS MAINTAINED ABOVE 60MMHG. DR. PENNINGTON GAVE OK FOR PT TO BE PCU STATUS. INCONTINENT OF URINE, ATTENDS ON. SMEAR OF BOWEL THIS AM. SPEECH THERAPY EVALUATED PT AND OK'D HER FOR PUREE, BUT PT REFUSED LUNCH. TAKING SIPS OF NECTAR THICK WATER BY TEASPOON AND APPEARS TO BE TOLERATING. WHEN COACHED, PT IS ABLE TO COUGH AND CLEAR HER THROAT AFTER TAKING THE LITTLE BITS OF WATER. PRESSURE ULCER ON PT'S BOTTOM DOCUMENTED, PHOTOGRAPHED AND REDRESSED [facility] MEPILEX.
--- NOTE | 2020-12-31 17:19 | NUR ---
SHIFT SUMMARY PT RESTED IN BED THROUGHOUT THE DAY. SHE IS TOLERATING THE NECTAR THICK LIQUIDS BY TEASPOON. SHE IS COUGHING WHEN PROMPTED AND ABLE TO GET THICK, CREAMY WHITE/YELLOW SPUTUM UP. SHE REMAINS ON 6L/NC AND LUNGS ARE STILL COARSE. SR, BP STABLE OFF OF THE LEVOPHED TODAY. LASIX ORDERED AND WILL BE GIVEN. DR. CARRASCO ORDERED STRICT I/O, DISCUSSED PT'S INCONTINENCE WITH HIM AND HE OK'D TO JUST CONTINUE WITH BRIEFS AND NO RUIZ. PT'S AILIN VISITED THIS AFTERNOON AND WAS UPDATED BY NURSING STAFF. CONTINUING TO MONITOR.
--- NOTE | 2020-12-31 19:00 | NUR ---
ASSUME CARE NOTE: PT LYING COMFORTABLY IN BED WATCHING TV. SHE IS A&O TO SELF, PLACE, AND SITUATION. SHE IS HARD OF HEARING BUT HEARS BETTER WITH HER RIGHT EAR. CURRENTLY ON 6L NC AND SATING 95%. LUNG SOUNDS COARSE AND BREATHING IS WET/GURGLING BUT HAS A WEAK COUGH SO UNABLE TO SUCTION ANYTHING. HR IS 70-80'S AND MAP >70. SHE IS INCONTINENT OF URINE AND WEARING A BRIEF. TOLERATING CRUSHED MEDS IN NECTAR THICK LIQUID/APPLE SAUCE. DENIES ANY PAIN CURRENTLY AND IS AFEBRILE. 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 THERE IS A STAGE II WOUND TO HER COCCYX WITH MEPILEX INTACT. THERE ARE SOME SCABS NOTED TO HER RIGHT UPPER ARM. NS INFUSING AT 100ML/HR. SEE SHIFT ASSESSMENT FOR DETAILS.
--- NOTE | 2021-01-01 06:41 | NUR ---
SHIFT SUMMARY: PT LYING IN BED WITH EYES CLOSED WITH NO CURRENT COMPLAINTS. SHE IS EASILY AROUSED AND REMAINED ALERT T/O THE SHIFT. SHE IS ON 3L NC AND SATING 90%. SHE PUTS FORTH POOR EFFORT TO COUGH BUT IS ABLE TO SUCTION OUT A SMALL AMOUNT OF WHITE CREAMY SPUTUM. HR AND BP REMAINED WNL T/O THE SHIFT. SHE HAD A SMALL BM THIS AM AND 4 SOAKED BRIEFS. NEW MEPILEX DRESSING APPLIED TO SCACRUM. WILL REPORT TO ONCOMING RN WHEN AVAILABLE.
[2021-01-01 07:50] LABS: Hematocrit 31.2 % (33.0-51.0); Hemoglobin 9.3 g/dL (11.5-16.0); Mean Corpuscular HGB 31.7 pg (26.0-34.0); Mean Corpuscular HGB Conc 29.8 g/dL (31.5-36.5); Mean Corpuscular Volume 107 fL (80-100); Mean Platelet Volume 11.2 fL (9.1-12.4); Platelet Count 194 K/mm3 (150-400); RDW Coefficient Variation 13.4 % (11.7-14.2); RDW Standard Deviation 52.5 fL (35.1-46.3); Red Blood Cell Count 2.93 M/mm3 (3.80-5.20); White Blood Cell Count 10.24 K/mm3 (4.00-11.30)
[2021-01-01 08:02] LABS: Alanine Aminotransfer (ALT/SGP 22 U/L (12-78); Albumin, Blood 2.1 g/dL (3.4-5.0); Albumin/Globulin Ratio 0.4 (0.8-1.8); Alk Phos 43 U/L (50-136); Anion Gap 2 mmol/L (6-16); Aspartate Aminotrans (AST/SGOT 16 U/L (12-37); Bilirubin, Total 0.4 mg/dL (0.1-1.0); Blood Urea Nitrogen 6 mg/dL (8-24); Bun/Creatinine Ratio 10.9 (12.0-20.0); CO2, Blood 30 mmol/L (21-32); Calcium, Blood 8.5 mg/dL (8.5-10.1); Chloride, Blood 109 mmol/L (98-108); Creatinine, Blood 0.55 mg/dL (0.40-1.00); Globulin, Blood 4.8 g/dL (2.2-4.0); Glomerular Filtration Rate >60 (60-); Glucose, Blood 199 mg/dL (70-99); Sodium, Blood 141 mmol/L (136-145); Total Protein, Blood 6.9 g/dL (6.4-8.2)
[2021-01-01 08:13] LABS: BASOPHILS PERCENT MAN 0 % (0-2); EOSINOPHILS PERCENT MAN 0 % (0-6); LYMPHOCYTES ABSOLUTE MAN 1.02 K/mm3 (0.84-5.20); LYMPHOCYTES PERCENT MAN 10 % (21-46); MONOCYTES ABSOLUTE MAN 0.81 K/mm3 (0.16-1.47); MONOCYTES PERCENT MAN 8 % (4-13); MYELOCYTE PERCENT MAN 1 % (0-0); NEUTROPHILS ABSOLUTE MAN 8.29 K/mm3 (1.96-9.15); SEG NEUTROPHILS PERCENT MAN 81 % (41-73); TOTAL CELLS COUNTED 100
[2021-01-01 12:26] LABS: Source, Urine Catheter
--- NOTE | 2021-01-01 12:43 | NUR ---
REASSESSMENT PT HAS BEEN RESTING IN BED THROUGHOUT THE MORNING. SHE CONTINUES TO HAVE REALLY THICK SPUTUM THAT IS DIFFICULT FOR HER TO COUGH UP. SPOKE WITH DR. LYNCH AND RECEIVED ORDER FOR MUCOMYST UPDRAFTS. ALSO GOT ORDER FOR RUIZ FROM DR. LYNCH AFTER SHE ORDERED LASIX PT HAS PRESSURE ULCER ON HER BOTTOM AND IS INCONTINENT. LLUNGS REMAIN COARSE. SR, BP STABLE. IV FLUIDS DECREASED PER DR. CARRASCO. PT REFUSED BREAKFAST, BUT ATE SOME LUNCH. CONTINUING TO MONITOR.
[2021-01-01 12:44] LABS: Appearance, Urine Clear (Clear); Bilirubin, Urine Neg (Neg); Blood, Urine 2+ (Neg); Color, Urine Yellow (P-Yellow); Glucose Qualitative, Urine 3+ (Neg); Ketones, Urine Neg (Neg); Leukocyte Esterase, Urine Neg (Neg); Nitrite, Urine Neg (Neg); Protein, Urine 2+ (Neg); Specific Gravity, Urine 1.015 (1.003-1.022); Urobilinogen, Urine NORM (Normal)
[2021-01-01 13:07] LABS: Bacteria Few /hpf; Red Blood Cells, Urine 0-2 /hpf (0-2); Squamous Epithelial Cells Mod /hpf (Few); White Blood Cells, Urine 0-2 /hpf (0-5)
--- NOTE | 2021-01-01 16:37 | NUR ---
SHIFT SUMMARY PT HAS MAINTAINED SPO2 ON 3-6L/NC TODAY. SHE DOES DROP QUICKLY TO 80% IF HER OXYGEN COMES OFF. PT HAD LESS SUCCESS COUGHING SPUTUM UP THIS AFTERNOON SO NT SUCTIONING WAS DONE ONCE BUT SPUTUM WAS SO THICK IT JUST CLOGGED THE CATHETER. SPOKE TO DR. LYNCH ABOUT THIS AND SHE ORDERED MUCINYX TO HELP THIN THE SECRETIONS. SR, SBP IN THE MID 90S AND MAP ABOVE 65 WITHOUT ANY PRESSORS. RUIZ PLACED FOR DIURESIS BECAUES OF PT'S WOUND ON HER BOTTOM AND FOR I/O. PT'S AILIN VISITED AGAIN TODAY AND WAS UPDATED BY NURSING STAFF.
--- NOTE | 2021-01-01 21:43 | NUR ---
UPDATE: SPOKE W/ HOSPITALIST CALLED AND SPOKE WITH DR. RODRIGUEZ. 1. REQUESTED ORDER FOR RT TO BE ABLE TO NT SUCTION 2. REQUESTED PROTONIX BE CHANGED TO IV SINCE IT CANNOT BE CRUSHED 3. REQUESTED A PROBIOTIC SINCE PT IS NOW ON 3 ANTIBIOTICS 4. INFORMED HER THAT PT IS NOT ALERT PREVIOUS SHIFT AND THAT HER BP IS BECOMING SOFT WITH A SBP OF 87 AND MAP OF 63. SHE GAVE THE OK TO RESTART LEVO AND CHANGE STATUS TO ICU. PLACED RT COMMUNICATION FOR OK TO NT SUCTION ORDER, PLACED ORDERS FOR IV PROTONIX AND PROBIOTIC, AND D/C THE ORAL PROTONIX. WILL REASSESS BP BEFORE STARTING LEVO.
--- NOTE | 2021-01-01 21:57 | NUR ---
ASSUME CARE: PT IS LYING IN BED WATCHING TV ON 6L NC AND SATING 95%. SHE IS ALERT TO PERSON BUT WOULD NOT ANSWER ANY OTHER ORIENTING QUESTIONS AND JUST YELLS "LEAVE ME ALONE". SHE IS LESS COOPERATIVE THAN THE PREVIOUS SHIFT BUT WILL STILL TAKE CRUSHED MEDS IN NECTAR THICK JUICE. SHE IS HARD OF HEARING, WHICH IS WORSE IN THE LEFT EAR. LUNG SOUNDS ARE COARSE T/O AND SHE HAS A WET, GURLING COUGH. SHE HAS POOR EFFORT TO COUGH SO UNABLE TO GET MUCH SPUTUM OUT. RT HAS REQUESTED ORDER TO NT SUCTION. SHE APPEARS SINUS RHYTHM ON THE MONITOR AND BP ARE ON THE SOFTER SIDE BUT MAP STILL >65. RUIZ IN PLACE DRAINING CLEAR YELLOW URINE TO GRAVITY. FOAM DRESSING IN PLACE FOR STAGE II WOUND ON COCCYX. NS INFUSING AT 50ML/HR. SEE SHIFT ASSESSMENT FOR DETAILS.
[2021-01-02 04:20] LABS: Hematocrit 28.4 % (33.0-51.0); Hemoglobin 8.5 g/dL (11.5-16.0); Mean Corpuscular HGB 31.6 pg (26.0-34.0); Mean Corpuscular HGB Conc 29.9 g/dL (31.5-36.5); Mean Corpuscular Volume 106 fL (80-100); Mean Platelet Volume 11.2 fL (9.1-12.4); Platelet Count 215 K/mm3 (150-400); RDW Coefficient Variation 13.2 % (11.7-14.2); RDW Standard Deviation 51.6 fL (35.1-46.3); Red Blood Cell Count 2.69 M/mm3 (3.80-5.20); White Blood Cell Count 9.15 K/mm3 (4.00-11.30)
[2021-01-02 04:43] LABS: Anion Gap 4 mmol/L (6-16); Blood Urea Nitrogen 4 mg/dL (8-24); Bun/Creatinine Ratio 6.1 (12.0-20.0); CO2, Blood 33 mmol/L (21-32); Calcium, Blood 8.4 mg/dL (8.5-10.1); Chloride, Blood 104 mmol/L (98-108); Creatinine, Blood 0.66 mg/dL (0.40-1.00); Glomerular Filtration Rate >60 (60-); Glucose, Blood 160 mg/dL (70-99); Potassium, Blood 3.3 mmol/L (3.5-5.5); Sodium, Blood 141 mmol/L (136-145)
--- NOTE | 2021-01-02 06:41 | NUR ---
SHIFT SUMMARY: PT IS LYING IN BED WITH EYES CLOSED WEARING 6L NC AND SATING 96%. SHE REQUIRED PRESSORS OVERNIGHT SO LEVO IS NOW INFUSING AT 3MCG/MIN AND MAP IS CURRENTLY 87. HER STATUS WAS CHANGED BACK TO ICU. SHE IS EASILY AROUABLE AND WILL FOLLOW MOST COMMANDS BUT IS STILL CONFUSED TO TIME AND SITUATION. AFTER RT NT SUCTIONED HER, HER BREATHING IMPROVED GREATLY AND THE WET, GURGLING COUGH HAS SUBSIDED. HER HR HAS REMAINED IN THE 80-90'S. RUIZ IS STILL IN PLACE DRAINING CLEAR YELLOW URINE. SHE HAD A SMALL SOFT BM THIS AM AND THE FOAM DRESSING ON HER COCCYX WAS CHANGED. WILL REPORT TO ONCOMING RN WHEN AVAILABLE.
--- NOTE | 2021-01-02 10:52 | NUR ---
UPDATE: This RN spoke with pt's daughter and updated her on pt status. Daughter states she will be in this afternnon around 1600 to visit.
--- NOTE | 2021-01-02 18:33 | NUR ---
END OF SHIFT SUMMARY: Pt ate small amount of breakfast, minimal appetite since. She was cleared by ST to have thin liquids today. O2 still at 6L NC. Pt received on dose of PRN oxy 5mg for pain. BM today. Redness noted on coccyx, mepilex changed; Q 2 turns to reduce pressure to coccyx. When instructed to cough, pt will produce strong, productive cough. Second midline place this afternoon as PIV was leaking and no PICC nurse available. Daughter at bedside during visiting hours. Levophed currently at 1 mcg; it was turned off for a few hours today.
--- NOTE | 2021-01-02 19:00 | NUR ---
ASSUME CARE: PT IS LYING IN BED WATCHING TV. SHE IS WEARING A NC AT 6L AND SATING 96%. SHE IS HARD OF HEARING, WORST ON THE LEFT, BUT IS A&O TO SELF, PLACE, AND SITATION. SHE FOLLOWS COMMANDS AND IS WEAK BUT CAN MOVE HER EXTREMITIES. SHE HAS A LEFT BKA. LUNG SOUNDS ARE COARSE T/O AND HER COUGH IS WEAK BUT PRODUCTIVE W/ A MODERATE AMOUNT OF WHITE CREAMY SECRETIONS. RUIZ IN PLACE DRAINING CLEAR YELLOW URINE TO GRAVITY. A FOAM DRESSING IS IN PLACE ON HER COCCYX FOR A STAGE II WOUND. SCABS ARE NOTED TO THE RIGHT UPPER ARM. HER HANDS ALMOST APPEAR TO BE CONTRACTED, WITH THE LEFT BEING WORSE AND MORE WEAK. LEVO INFUSING AT 1MCG/KG/MIN AND NS AT 50ML/HR. SEE SHIFT ASSESSMENT FOR DETAILS.
[2021-01-03 03:39] LABS: Hematocrit 29.2 % (33.0-51.0); Hemoglobin 8.9 g/dL (11.5-16.0); Mean Corpuscular HGB 31.3 pg (26.0-34.0); Mean Corpuscular HGB Conc 30.5 g/dL (31.5-36.5); Mean Corpuscular Volume 103 fL (80-100); Mean Platelet Volume 10.1 fL (9.1-12.4); Platelet Count 200 K/mm3 (150-400); RDW Coefficient Variation 13.1 % (11.7-14.2); RDW Standard Deviation 49.1 fL (35.1-46.3); Red Blood Cell Count 2.84 M/mm3 (3.80-5.20); White Blood Cell Count 7.77 K/mm3 (4.00-11.30)
[2021-01-03 03:55] LABS: Albumin, Blood 2.2 g/dL (3.4-5.0); Anion Gap 4 mmol/L (6-16); Blood Urea Nitrogen 5 mg/dL (8-24); Bun/Creatinine Ratio 7.5 (12.0-20.0); CO2, Blood 37 mmol/L (21-32); Calcium, Blood 8.6 mg/dL (8.5-10.1); Chloride, Blood 98 mmol/L (98-108); Creatinine, Blood 0.67 mg/dL (0.40-1.00); Glomerular Filtration Rate >60 (60-); Glucose, Blood 155 mg/dL (70-99); Phosphorus, Blood 3.1 mg/dL (2.5-4.9); Potassium, Blood 3.4 mmol/L (3.5-5.5); Sodium, Blood 139 mmol/L (136-145)
--- NOTE | 2021-01-03 06:14 | NUR ---
SHIFT SUMMARY: PT LYING IN BED WITH EYES CLOSED WEARING 6L NC AND SATING 98%. SHE IS A&O X 3 AND WILL FOLLOW COMMANDS. HR REMAINED IN THE 80'S T/O THE SHIFT. LEVO REQUIRED TO BE TITRATED UP TO 2MCG/MIN TO MAINTAIN A MAP >65 AND HER MAP IS CURRENTLY 77. NS STILL INFUSING AT 50ML/HR. RUIZ REMAINS INTACT AND DRAINING CLEAR YELLOW URINE TO GRAVITY. SHE HAD A SMALL BROWN LOOSE BM AND FOAM DRESSING ON SACRUM WAS REPLACED. SHE CURRENTLY HAS NO COMPLAINTS OR REQUESTS EXCEPT TO CONTINUE TO SLEEP. WILL REPORT TO ONCOMING RN WHEN AVAILABLE.
--- NOTE | 2021-01-03 07:00 | NUR ---
ASSUME CARE: I have assumed care of patient at this time.
--- NOTE | 2021-01-03 10:50 | NUR ---
UPDATE: This RN spoke to pt's daughter to update her on pt status.
--- NOTE | 2021-01-03 19:20 | NUR ---
SHIFT SUMMARY: Pt up in chair for much of the day; pt able to clear secretions better and respiratory status improved while up. Midodrine started today. Levo titrated off at 1800. Pt continues on 6L NC. Small BM this morning. UOP 1500 this shift. Appetite improved some. Daughter at bedside during visiting hours.
--- NOTE | 2021-01-03 19:30 | NUR ---
[place] of care Received report from Mila and assumed care. Pt is pleasantly confused, AO to person but able to follow commands. Had 1x BM at start of shift, changed mepilex dressing on coccyx Complained of hip pain but unable to describe or rate pain.
[2021-01-04 01:51] LABS: Anion Gap 7 mmol/L (6-16); Blood Urea Nitrogen 7 mg/dL (8-24); CO2, Blood 37 mmol/L (21-32); Calcium, Blood 9.1 mg/dL (8.5-10.1); Chloride, Blood 96 mmol/L (98-108); Glomerular Filtration Rate >60 (60-); Glucose, Blood 124 mg/dL (70-99); Magnesium, Blood 1.4 mg/dL (1.6-2.4); Potassium, Blood 3.4 mmol/L (3.5-5.5); Sodium, Blood 140 mmol/L (136-145)
[2021-01-04 01:52] LABS: Albumin, Blood 2.4 g/dL (3.4-5.0); Anion Gap 6 mmol/L (6-16); Blood Urea Nitrogen 7 mg/dL (8-24); Bun/Creatinine Ratio 9.2 (12.0-20.0); CO2, Blood 37 mmol/L (21-32); Chloride, Blood 97 mmol/L (98-108); Creatinine, Blood 0.76 mg/dL (0.40-1.00); Glomerular Filtration Rate >60 (60-); Glucose, Blood 123 mg/dL (70-99); Phosphorus, Blood 2.5 mg/dL (2.5-4.9); Potassium, Blood 3.4 mmol/L (3.5-5.5); Sodium, Blood 140 mmol/L (136-145)
[2021-01-04 01:59] LABS: Hematocrit 32.7 % (33.0-51.0); Hemoglobin 10.1 g/dL (11.5-16.0); Mean Corpuscular HGB 31.7 pg (26.0-34.0); Mean Corpuscular HGB Conc 30.9 g/dL (31.5-36.5); Mean Corpuscular Volume 103 fL (80-100); Mean Platelet Volume 10.7 fL (9.1-12.4); Platelet Count 209 K/mm3 (150-400); RDW Coefficient Variation 13.1 % (11.7-14.2); RDW Standard Deviation 49.6 fL (35.1-46.3); Red Blood Cell Count 3.19 M/mm3 (3.80-5.20); White Blood Cell Count 9.38 K/mm3 (4.00-11.30)
--- NOTE | 2021-01-04 02:37 | NUR ---
AFIB AT 0045 PATIENT CONVERTED TO AFIB RVR FROM SR. RATE INITIALLY 180'S, PATIENT ASLEEP, DENIED DISCOMFORTS. DID NOT WANT TO COUGH OR BARE DOWN WHEN ASKED, JUST WANTED TO SLEEP. VITALS STABLE OTHERWISE. ATTEMPTED TO SUCTION PATIENT, PATIENT CLEARED THROAT AND CONVERTED BACK TO SR. WITHIN A COUPLE MINUTES PATIENT CONVERTED TO AFIB WITH RATE 100-120. NOTIFIED DR. RAMIREZ AT 0050 OF PATIENT'S CURRENT RATE AND RHYTHM. RECEIVED NEW ORERS. AFTER LABS RESULTED, PATIENT'S HEART RATE NOTED TO BE TRENDING IN THE 170'S. AT 0205, NOTIFIED DR. RAMIREZ OF LABS AND INCREASED HEART RATE. RECEIVED NEW ORDERS. METOPROLOL GIVEN AND ELECTROLYTE REPLACEMENTS INITIATED. AT 224 PATIENT CONVERTED BACK INTO SINUS RHYTHM. WILL CONTINUE TO MONITOR.
--- NOTE | 2021-01-04 05:49 | NUR ---
SHIFT SUMMARY: PT CONTINUES TO BE PLEASANTLY CONFUSED, THIS MORNING PT MORE ALERT AND WAS ABLE TO HOLD CONVERSATION. LEVOPHED WAS STARTED AND CONTINUES TO BE ON 2 MCG/MIN FOR MAP >65. PT HAD A NEW ONSET OF AFIB BUT CONVERTED WITHIN AN HOUR AFTER METOPROLOL WAS GIVEN. LUNG SOUNDS STILL COARSE, INTERMITTENTLY ABLE TO COUGH UP SECRETIONS. BM X2, Q2 TURNS TO MAINTAIN SKIN INTEGRITY.
--- NOTE | 2021-01-04 07:40 | NUR ---
Assumed care. Report received from nightshift RN. PT sleeping in bed, on high flow NC, 6 L/min. Pt has powerglides in RADHAMES and ANA, WNL, dressings intact. IV pumps running NS 50 ml/hr, Levophed put on SBj at this time for BP 134/55. Baltazar catheter in place, draining clear/yellow urine. SCD in place R/leg, left leg has BKA. No acute needs noted at this time, will continue to monitor.
[2021-01-04 13:13] LABS: Free Thyroxine 1.12 ng/dL (0.70-1.60)
[2021-01-04 13:15] LABS: Thyroid Stimulating Hormone 1.14 uIU/mL (0.360-4.800)
--- NOTE | 2021-01-04 18:16 | NUR ---
Shift summary. Pt continues in bed, on high flow 02 via NC, 4 L/min. Powerglide in ANA, RADHAMES powerglide DC'd. IV pump running NS 50 ml/hr and IV antibiotics at this time. Levophed has remained off throughout shift, BP remained in upper 90s-low 100s systolic. Pt status changed from ICU to Medical. Baltazar catheter in place, draining clear/yellow urine. See shift assessment for further details. Will continue to monitor and report off to dayshift RN.
--- NOTE | 2021-01-04 19:45 | NUR ---
Assumed care note: pt able to use call light appropriately, very hard of hearing. AO to self and place. Continues to improve. 1x BM at start of shift. BP remains within ordered paramaters.
[2021-01-05 03:17] LABS: BASOPHILS ABSOLUTE AUTO 0.03 K/mm3 (0.00-0.23); BASOPHILS PERCENT AUTO 0 % (0-2); EOSINOPHILS ABSOLUTE AUTO 0.08 K/mm3 (0.00-0.68); EOSINOPHILS PERCENT AUTO 1 % (0-6); Hematocrit 30.8 % (33.0-51.0); Hemoglobin 9.3 g/dL (11.5-16.0); IMMATURE GRAN ABSOLUTE AUTO 0.07 K/mm3 (0.00-0.10); IMMATURE GRAN PERCENT AUTO 1 % (0-1); LYMPHOCYTES ABSOLUTE AUTO 1.32 K/mm3 (0.84-5.20); LYMPHOCYTES PERCENT AUTO 17 % (21-46); MONOCYTES ABSOLUTE AUTO 0.55 K/mm3 (0.16-1.47); MONOCYTES PERCENT AUTO 7 % (4-13); Mean Corpuscular HGB 31.6 pg (26.0-34.0); Mean Corpuscular HGB Conc 30.2 g/dL (31.5-36.5); Mean Corpuscular Volume 105 fL (80-100); Mean Platelet Volume 10.6 fL (9.1-12.4); NEUTROPHILS ABSOLUTE AUTO 5.57 K/mm3 (1.96-9.15); NEUTROPHILS PERCENT AUTO 73 % (41-73); Platelet Count 180 K/mm3 (150-400); RDW Coefficient Variation 13.4 % (11.7-14.2); RDW Standard Deviation 50.9 fL (35.1-46.3); Red Blood Cell Count 2.94 M/mm3 (3.80-5.20); White Blood Cell Count 7.62 K/mm3 (4.00-11.30)
[2021-01-05 03:33] LABS: Anion Gap 5 mmol/L (6-16); Blood Urea Nitrogen 6 mg/dL (8-24); Bun/Creatinine Ratio 9.1 (12.0-20.0); CO2, Blood 34 mmol/L (21-32); Calcium, Blood 8.5 mg/dL (8.5-10.1); Chloride, Blood 102 mmol/L (98-108); Creatinine, Blood 0.66 mg/dL (0.40-1.00); Glomerular Filtration Rate >60 (60-); Glucose, Blood 103 mg/dL (70-99); Magnesium, Blood 1.5 mg/dL (1.6-2.4); Potassium, Blood 3.9 mmol/L (3.5-5.5); Sodium, Blood 141 mmol/L (136-145)
--- NOTE | 2021-01-05 06:13 | NUR ---
SHIFT SUMMARY: Pt was able to rest comfortably all night with Q2 turns. BP remained within normal limits, although there were episodes of hypotension while resting. Had 2x BM, mepilex changed on coccyx wound. Pt remains cooperative and alert despite having diffulty hearing.
--- NOTE | 2021-01-05 07:41 | NUR ---
Assumed care. Report received from nightshift RN. Pt resting in bed, on 4 L/min, high flow 02 via NC. RT in room for breathing treatment. Powerglide in place ANA, wnl, dressing intact. IV pump running NS 50 ml/hr. Baltazar catheter in place, draining clear/yellow urine. PT alert and oriented, asked for prn pain medications. No other acute needs at this time, will continue to monitor.
--- NOTE | 2021-01-05 12:14 | NUR ---
Family conversation. Spoke with daughter Catia on the phone for update on patient status. Discussed plan of care. Daughter is very concerned about patient being discharged before she is able to fully function at her assisted living facility and said that she functions very independently there. She referenced patient's need for blood pressure medications, weakness, and need for assistance while eating as some of her concerns.
--- NOTE | 2021-01-05 13:36 | NUR ---
Pt up in chair for PT and OT. Ceiling lift used for transfer.
--- NOTE | 2021-01-05 18:29 | NUR ---
Shift summary. Pt continues in bed on high flow 02 NC. Pt has powerglide in ANA, NS running at 50 ml/hr. Baltazar catheter in place, clear/yellow urine draining. Pt up in chair and seen by PT and OT this afternoon. See shift assessment for details. Will continue to monitor and report off to dayshift RN.
--- NOTE | 2021-01-05 19:00 | NUR ---
REPORT RECIEVED AND ASSUMED CARE
--- NOTE | 2021-01-05 19:50 | NUR ---
Assessment complete. complains of left lower leg pain. Pain meds given, applied warm blanket to stump for comfort. turned and repositioned, incontient of stool. buttocks exorieated with breakdown. will apply mepilex. very hard of hearing, has difficulties understanding due to being unable to comprehend everything being said. needs reinforcment of education.
[2021-01-06 03:48] LABS: Hematocrit 27.7 % (33.0-51.0); Hemoglobin 8.4 g/dL (11.5-16.0); Mean Corpuscular HGB 31.5 pg (26.0-34.0); Mean Corpuscular HGB Conc 30.3 g/dL (31.5-36.5); Mean Corpuscular Volume 104 fL (80-100); Platelet Count 197 K/mm3 (150-400); RDW Coefficient Variation 13.5 % (11.7-14.2); RDW Standard Deviation 50.5 fL (35.1-46.3); Red Blood Cell Count 2.67 M/mm3 (3.80-5.20); White Blood Cell Count 7.05 K/mm3 (4.00-11.30)
[2021-01-06 04:12] LABS: Anion Gap 4 mmol/L (6-16); Blood Urea Nitrogen 6 mg/dL (8-24); Bun/Creatinine Ratio 8.1 (12.0-20.0); CO2, Blood 31 mmol/L (21-32); Calcium, Blood 8.5 mg/dL (8.5-10.1); Chloride, Blood 106 mmol/L (98-108); Creatinine, Blood 0.74 mg/dL (0.40-1.00); Glomerular Filtration Rate >60 (60-); Glucose, Blood 133 mg/dL (70-99); Magnesium, Blood 1.6 mg/dL (1.6-2.4); Potassium, Blood 4.1 mmol/L (3.5-5.5); Sodium, Blood 141 mmol/L (136-145)
--- NOTE | 2021-01-06 05:35 | NUR ---
ORIENTED THROUGHOUT NIGHT WITH OCCASIONAL FORGETFULLNESS AT TIMES. PAIN IN LEFT LEG STUMP CONTROLLED WITH PAIN MEDS. SARA DC'D PER ORDER. OXYGEN SATS MAINTAINED IN LOW TO MID 90'S WITH DROPS TO MID 80S WITH ACTIVITY. NEEDS REMINDED TO COUGH WITH CONGESTION. PRODUCTIVE COUGH WITH MODERATE TO LARGE AMOUNT OF THICK WHITE SPUTUM.
--- NOTE | 2021-01-06 08:30 | NUR ---
Assumed care. Report received from papa CISNEROS. Pt resting in bed on 4L 02 via NC. Powerglide in place ANA, WNL, IV pump running NS 50 ml/hr. PT c/o pain in left lower extremity, previous bka site. Given prn pain medication. No other acute needs noted at this time, will continue to monitor.
--- NOTE | 2021-01-06 18:36 | NUR ---
Shift summary. Pt continues in bed, on 02, 4 L/min via NC. Pt alert, oriented to self/surroundings. Powerglide in ANA, IV pump running NS at 50 ml/hr. Pt c/o of pain in lower extremity throughout shift, PRN pain medications used with poor results. Pt refused to get up to chair this shift. See shift assessment for further details. Will continue to monitor and report off to nightshift RN.
--- NOTE | 2021-01-06 21:42 | NUR ---
ASSUMED CARE AT 1900 PT LAYING IN BED WATCHING TV. PT IS A/O X3; IS UNSURE OF THE TIME OF DAY AND SLIGHTLY DISORIENTED, THIS COULD BE RELATED TO PT BEING VERY [place]. PT REPORTS 6/10 PAIN TO LLE, PRN AVAILABLE. AFEBRILE. SPO2 >95% ON 4L HIGH FLOW NC. HR 60-70'S. SBP 150-160'S. NS INFUSING AT 50ML/HR. SEE SHIFT ASSESSMENT FOR FULL ASSESSMENT.
[2021-01-07 04:53] LABS: Hematocrit 28.7 % (33.0-51.0); Hemoglobin 8.7 g/dL (11.5-16.0)
--- NOTE | 2021-01-07 06:27 | NUR ---
END OF SHIFT SUMMARY NO ACUTE EVENTS OVERNIGHT AND SLEPT MOST OF THE SHIFT. PT IS ALERT/ORIENTED X3 AND IS ABLE TO USE CALL LIGHT MOSTLY APPROPRIATLY, PT IS VERY [place]. SPO2 >90% ON 4L HIGH FLOW NC. HR 60-70'S. SBP 130-150'S. PT TOLERATES TAKING MEDS IN APPLESAUCE VERY WELL. PT INCONTINENT OF URINE AND OCCATIONALLY STOOL. MEPILEX ON COCCYX CHANGED THIS SHIFT. WILL REPORT TO AM RN WHEN AVAILABLE.
--- NOTE | 2021-01-07 09:24 | NUR ---
Assumed care of Pt: deneis pain, AOx4, [place], brief changed stool/urine incontinent, complains of SOB despite non verbal indicators, lungs coarse, will order duoneb treatment.
--- NOTE | 2021-01-07 17:49 | NUR ---
AOx4, denies N/V, [facility], complains of 5/10 LLE BKA pain, Pt given 650mg tylenol and 5mg oxy with some effect, +1 weak pulses throughout, BP HTN 140-150s SBP, NSR 80s, complains SOB at times despite sats WNL on 4l NC, breathing treatment given no further complaints, lungs coarse/dim, multiple incontinent UOP and stool in briefs, foam dressing changed coccyx for skin integrity continues stage 2 no output, some appetite up to 40% meals completed, q2 turns completed per policy.
--- NOTE | 2021-01-07 21:00 | NUR ---
ASSUMED CARE AT 1900 PT LAYING IN BED WATCHING TV AT CHANGE OF SHIFT. PT IS ALERT/ORIENTED X3; IS UNABLE TO STATE THE CORRECT YEAR; PT DOES NOT REMEMBER THIS RN THAT TOOK CARE OF HER LAST NIGHT AND REMEMBERS THE AM NURSE THAT TOOK CARE OF HER YESTERDAY BUT NOT TODAY; ALSO PT IS VERY [place]; IS ABLE TO USE CALL LIGHT OCCATIONALLY CORRECTLY. AFEBRILE. SPO2 >95% ON 4L NC. VITALS STABLE. NS INFUSING AT 50ML/HR. SEE SHIFT ASSESSMENT FOR FULL ASSESSMENT.
--- NOTE | 2021-01-08 06:25 | NUR ---
END OF SHIFT SUMMARY NO ACUTE EVENTS OVERNIGHT. VITALS STABLE. PT OPTIMISTIC ABOUT EATING SOLID FOODS AND NOT PUREE DIET. PT SLEPT ON AND OFF THROUGHOUT THE NIGHT. INFECTION CONTROL CALLED AND INFORMED THAT PT CAN BE REMOVED FROM DROPLET ISOLATION AT 0600. WILL REPORT TO AM RN WHEN AVAILABLE.
--- NOTE | 2021-01-08 21:17 | NUR ---
ASSUMED CARE AT 1900 PT LAYING IN BED WATCHING TV. PT IS ALERT/ORIENTED X4, MORE ORINETED THAN PREVIOUS DAY; IS USING CALL LIGHT APPROPRIATLY; VERY [place]. SPO2 >95% ON 3LNC. VITAL SIGNS STABLE. PT HESITANT BUT COOPERATIVE WITH CARE. SHE IS WANTING TO HAVE A REGULAR DIET. NS INFUING AT 50ML/HR. SEE SHIFT ASSESSMENT FOR FULL ASSESSMENT.
--- NOTE | 2021-01-09 06:18 | NUR ---
END OF SHIFT SUMMARY NO ACUTE EVENTS OVER NIGHT. VITALS STABLE. PT USING CALL LIGHT APPROPRIATLY. SEVERAL SNACKS THROUGHOUT THE NIGHT. NS INFUSING AT 50ML/HR. WILL REPORT TO AM RN WHEN AVAILABLE.
--- NOTE | 2021-01-09 17:28 | NUR ---
will reach out to pt daughter for support. Pt high risk for readmission . Will contact terrell lee to review her needs.
== END 2021-01-09 15:20 | disposition home or self-care (01) | DRG 871 ==
LOC: ER 08:46 → PCU 11:36 → ICUW 11:36 → PCU 12:37 → ICUW 12-31 02:40
PROVIDERS: Emergency Medicine; Family Medicine; Nurse Practitioner Acute Care; ADMIT Internal Medicine
PROC: 5A09357 Assistance with Respiratory Ventilation, Less than 24 Consecutive Hours, Continuous Positive Airway Pressure (ICD-10-PCS; principal; 2020-12-30)
PROC: 3E033XZ Introduction of Vasopressor into Peripheral Vein, Percutaneous Approach (ICD-10-PCS; 2020-12-31)
DX: A41.89 Other specified sepsis (principal); J96.21 Acute and chronic respiratory failure with hypoxia; J69.0 Pneumonitis due to inhalation of food and vomit; J18.9 Pneumonia, unspecified organism; R65.21 Severe sepsis with septic shock; U07.1 COVID-19; J44.0 Chronic obstructive pulmonary disease with (acute) lower respiratory infection; E87.2 Acidosis; D64.9 Anemia, unspecified; F41.9 Anxiety disorder, unspecified; J44.9 Chronic obstructive pulmonary disease, unspecified; I10 Essential (primary) hypertension; E78.6 Lipoprotein deficiency; E83.42 Hypomagnesemia; E87.6 Hypokalemia; E66.01 Morbid (severe) obesity due to excess calories; Z99.81 Dependence on supplemental oxygen; Z88.5 Allergy status to narcotic agent; Z88.8 Allergy status to other drugs, medicaments and biological substances; I25.10 Atherosclerotic heart disease of native coronary artery without angina pectoris; Z86.73 Personal history of transient ischemic attack (TIA), and cerebral infarction without residual deficits; Z89.512 Acquired absence of left leg below knee; E11.40 Type 2 diabetes mellitus with diabetic neuropathy, unspecified; Z98.890 Other specified postprocedural states; Z90.49 Acquired absence of other specified parts of digestive tract; Z95.5 Presence of coronary angioplasty implant and graft; Z79.899 Other long term (current) drug therapy; Z79.02 Long term (current) use of antithrombotics/antiplatelets; Z79.4 Long term (current) use of insulin; Z87.891 Personal history of nicotine dependence; I48.91 Unspecified atrial fibrillation; G89.29 Other chronic pain; I25.2 Old myocardial infarction; E11.51 Type 2 diabetes mellitus with diabetic peripheral angiopathy without gangrene; Z68.33 Body mass index [BMI] 33.0-33.9, adult; E11.65 Type 2 diabetes mellitus with hyperglycemia; U09.9 Post COVID-19 condition, unspecified
CPT/HCPCS: 31720; 36415; 71045; 71260; 80048; 80053; 80069; 81001; 82803; 82947; 83605; 83735; 83880; 84439; 84443; 84484; 85014; 85018; 85025; 85027; 85379; 87040; 87070; 87077; 87102; 87106; 87147; 87186; 87205; 87252; 87254; 92526; 92610; 93005; 93010; 93306; 94640; 94660; 94762; 96365-59; 96367-59; 97110; 97162; 97165; 97530; 99285-25; A9270; C1751; C9113; J0295; J0456; J0690; J0696; J1815; J1940; J2405; J2765; J3370; J3475; J3480; J7030; J7050; J7060; Q9967

== ENCOUNTER → 2021-07-12 | Outpatient (CLI) | payer OTHER ==
[~2021-07-12] MED LIST changes: +INSULANPEN SC; +QVAR REDIHALE10.6 G2 INH; +VISBIOME 112.51 EACH PO
== END | disposition home or self-care (01) ==
LOC: LAB SHORT 12:40
DX: E11.59 Type 2 diabetes mellitus with other circulatory complications (principal); D72.829 Elevated white blood cell count, unspecified
CPT/HCPCS: 82043

== ENCOUNTER → 2021-11-06 | Outpatient (CLI) | payer OTHER ==
[2021-11-07 08:39] LABS: Source, Urine Voided
[2021-11-07 09:23] LABS: Appearance, Urine Cloudy (Clear); Bilirubin, Urine Neg (Neg); Blood, Urine 4+ (Neg); Color, Urine Yellow (P-Yellow); Glucose Qualitative, Urine Neg (Neg); Ketones, Urine Neg (Neg); Leukocyte Esterase, Urine 3+ (Neg); Nitrite, Urine Neg (Neg); Protein, Urine 3+ (Neg); Specific Gravity, Urine 1.025 (1.003-1.022); Urobilinogen, Urine NORM (Normal)
[2021-11-07 09:35] LABS: Bacteria Few /hpf; Red Blood Cells, Urine TNTC /hpf (0-2); Squamous Epithelial Cells Few /hpf (Few); White Blood Cells, Urine TNTC /hpf (0-5); Yeast/Fungi Urine Mod /hpf
== END | disposition home or self-care (01) ==
LOC: LAB SHORT 22:00
PROVIDERS: Nurse Practitioner Family
DX: N39.0 Urinary tract infection, site not specified (principal)
CPT/HCPCS: 81001; 87086

== ENCOUNTER → 2021-12-22 | Outpatient (CLI) | payer OTHER ==
[~2021-12-22] MED LIST changes: +ALBU2.5V5 INH; +Flovent Disku100 MCG INH; +INSULANI SC; +IPRAT-ALBUT 0.5-3 ML INH; +MYLANTA MAXIMUM10 ML PO; +ONDA4 PO; +OXYB5 PO; +PROBIOTIC1 EA13 PO; +XARELTO15 M1 PO; -XARELTO15 MG PO; +ZINC OXIDE57 GM TOP; +[UNRECOGNIZED DRUG - OTHER]
[2021-12-22 11:18] LABS: Source, Urine Voided
[2021-12-22 12:21] LABS: Appearance, Urine Cloudy (Clear); Blood, Urine 1+ (Neg); Color, Urine Yellow (P-Yellow); Glucose Qualitative, Urine Neg (Neg); Ketones, Urine Neg (Neg); Leukocyte Esterase, Urine 3+ (Neg); Nitrite, Urine Neg (Neg); Protein, Urine 3+ (Neg); Specific Gravity, Urine 1.015 (1.003-1.022); Urobilinogen, Urine 1+ (Normal)
[2021-12-22 12:36] LABS: Bilirubin, Urine 1+ (Neg)
[2021-12-22 12:39] LABS: Bacteria Few /hpf; Squamous Epithelial Cells Few /hpf (Few)
[2021-12-22 12:42] LABS: Hyaline Casts 0-2 /lpf (0-2)
== END | disposition home or self-care (01) ==
LOC: LAB SHORT 11:15 → LAB 11:15
PROVIDERS: Nurse Practitioner Family
DX: N39.0 Urinary tract infection, site not specified (principal)
CPT/HCPCS: 81001; 87086

== ENCOUNTER 2021-12-26 13:02 | Inpatient (IN) | payer OTHER ==
[~2021-12-26] VITALS: Ht 167.6 cm; Wt 63.6 kg
[~2021-12-26 13:02] MED LIST changes: -ALBU2.5V5 INH; -Flovent Disku100 MCG INH; -INSULANI SC; -IPRAT-ALBUT 0.5-3 ML INH; -MYLANTA MAXIMUM10 ML PO; -ONDA4 PO; -OXYB5 PO; -PROBIOTIC1 EA13 PO; -ZINC OXIDE57 GM TOP; -[UNRECOGNIZED DRUG - OTHER]
[2021-12-26 14:32] LABS: BASOPHILS ABSOLUTE AUTO 0.02 K/mm3 (0.00-0.23); BASOPHILS PERCENT AUTO 0 % (0-2); EOSINOPHILS ABSOLUTE AUTO 0.13 K/mm3 (0.00-0.68); EOSINOPHILS PERCENT AUTO 1 % (0-6); Hematocrit 30.1 % (33.0-51.0); Hemoglobin 9.4 g/dL (11.5-16.0); IMMATURE GRAN ABSOLUTE AUTO 0.16 K/mm3 (0.00-0.10); IMMATURE GRAN PERCENT AUTO 1 % (0-1); LYMPHOCYTES ABSOLUTE AUTO 0.96 K/mm3 (0.84-5.20); LYMPHOCYTES PERCENT AUTO 7 % (21-46); MONOCYTES ABSOLUTE AUTO 0.88 K/mm3 (0.16-1.47); MONOCYTES PERCENT AUTO 7 % (4-13); Mean Corpuscular HGB 31.5 pg (26.0-34.0); Mean Corpuscular HGB Conc 31.2 g/dL (31.5-36.5); Mean Corpuscular Volume 101 fL (80-100); Mean Platelet Volume 10.6 fL (9.1-12.4); NEUTROPHILS ABSOLUTE AUTO 10.78 K/mm3 (1.96-9.15); NEUTROPHILS PERCENT AUTO 83 % (41-73); Platelet Count 425 K/mm3 (150-400); RDW Coefficient Variation 14.5 % (11.7-14.2); RDW Standard Deviation 54.2 fL (35.1-46.3); Red Blood Cell Count 2.98 M/mm3 (3.80-5.20); White Blood Cell Count 12.93 K/mm3 (4.00-11.30)
[2021-12-26 14:44] LABS: Albumin, Blood 2.4 g/dL (3.4-5.0); Albumin/Globulin Ratio 0.5 (0.8-1.8); Bilirubin, Total 0.3 mg/dL (0.1-1.0); Bun/Creatinine Ratio 17.6 (12.0-20.0); Calcium, Blood 8.7 mg/dL (8.5-10.1); Creatinine, Blood 0.68 mg/dL (0.40-1.00); Globulin, Blood 5.3 g/dL (2.2-4.0); Magnesium, Blood 1.4 mg/dL (1.6-2.4); Potassium, Blood 2.8 mmol/L (3.5-5.5); Total Protein, Blood 7.7 g/dL (6.4-8.2)
[2021-12-26] MEDS ORDERED: Flovent Disku100 MCG INH (15:26)
[2021-12-26] MEDS ORDERED: INSULANI SC (15:29)
[2021-12-26] MEDS ORDERED: OXYB5 PO (15:31)
[2021-12-26] MEDS ORDERED: PROBIOTIC1 EA13 PO (15:32)
[2021-12-26] MEDS ORDERED: ALBU2.5V5 INH (15:39)
[2021-12-26] MEDS ORDERED: MYLANTA MAXIMUM10 ML PO (15:41)
[2021-12-26] MEDS ORDERED: BISA10S PR (15:42)
[2021-12-26] MEDS ORDERED: IPRAT-ALBUT 0.5-3 ML INH (15:42)
[2021-12-26] MEDS ORDERED: ONDA4 PO (15:44)
[2021-12-26] MEDS ORDERED: ZINC OXIDE57 GM TOP (15:46)
[2021-12-26] MEDS ORDERED: [UNRECOGNIZED DRUG - OTHER] (15:47)
[2021-12-26 16:01] LABS: Source, Urine Straight Cath
[2021-12-26 16:06] LABS: Appearance, Urine Clear (Clear); Blood, Urine 3+ (Neg); Color, Urine Yellow (P-Yellow); Glucose Qualitative, Urine Neg (Neg); Ketones, Urine Neg (Neg); Leukocyte Esterase, Urine 1+ (Neg); Nitrite, Urine Neg (Neg); Protein, Urine 2+ (Neg); Urobilinogen, Urine NORM (Normal)
[2021-12-26 16:13] LABS: Bilirubin, Urine 1+ (Neg)
[2021-12-26 16:14] LABS: Renal Epithelial Few /hpf (0-Rare); Squamous Epithelial Cells Not Seen /hpf (Few)
[2021-12-26 16:15] LABS: Bacteria Few /hpf
[2021-12-26 17:23] LABS: Influenza A, PCR NEGATIVE (NEGATIVE); Influenza B, PCR NEGATIVE (NEGATIVE); Resp Syncytial Virus, PCR NEGATIVE (NEGATIVE); SARS-Cov-2 (COVID-19) PCR, MMC NEGATIVE (NEGATIVE)
[2021-12-26 18:35] LABS: Bicarbonate Venous 26.2 mmol/L (24.0-30.0); pH Blood Venous 7.46 (7.34-7.37)
--- NOTE | 2021-12-26 19:00 | NUR ---
ASSUMED CARE OF PATIENT AT THIS TIME. CARE TEAM AT BEDSIDE INSERTING POWERGLIDE. REPORT RECIEVED FROM AMELIA BALLESTEROS. ALLERGIES, LINES, AND PATIENT STATUS REVIEWED AT BEDSIDE.
--- NOTE | 2021-12-26 19:09 | NUR ---
ADMIT PT ARRIVED AT 1755 VIA ER BED. PT IS ALERT, AND ORIENTED, BUT MOANS OUT AT TIMES. PT DENIES PAIN. PT WITH LEVOPHED INFUSING AT 3 MCG/MIN THROUGH PERIPHERAL IV. VITAL SIGNS STABLE AT THIS TIME. PT ON 4L O2 NC. RUIZ IN PLACE UPON ARRIVAL. PT WITH DRIED STOOL FROM KNEES UP TO MID BACK. PT CLEANED AND SCRATCHES NOTED TO OUTER HIPS/LEGS AND COCCYX REDDENED. PHOTOS IN CHART. PT DAUGHTER AT BEDSIDE AT THIS TIME, EXTENSIVE DISCUSSION ABOUT CODE STATUS AND VASCULAR ACCESS. PT WILL REMAIN DNR STATUS AT THIS TIME AND USE LEAST INVASIVE IV ACCESS AT THIS TIME, BUT PT DAUGHER IS OK WITH CENTRAL LINE IF PT RAPIDLY DETERIORATES AND PRESSOR REQUIREMENT INCREASES. REPORT GIVEN TO BHAVYA CROOK RN.
[2021-12-27 04:37] LABS: BASOPHILS ABSOLUTE AUTO 0.02 K/mm3 (0.00-0.23); BASOPHILS PERCENT AUTO 0 % (0-2); EOSINOPHILS ABSOLUTE AUTO 0.01 K/mm3 (0.00-0.68); EOSINOPHILS PERCENT AUTO 0 % (0-6); Hematocrit 26.6 % (33.0-51.0); IMMATURE GRAN ABSOLUTE AUTO 0.27 K/mm3 (0.00-0.10); IMMATURE GRAN PERCENT AUTO 2 % (0-1); LYMPHOCYTES ABSOLUTE AUTO 0.81 K/mm3 (0.84-5.20); LYMPHOCYTES PERCENT AUTO 7 % (21-46); MONOCYTES ABSOLUTE AUTO 0.85 K/mm3 (0.16-1.47); MONOCYTES PERCENT AUTO 7 % (4-13); Mean Corpuscular HGB 30.4 pg (26.0-34.0); Mean Corpuscular HGB Conc 30.1 g/dL (31.5-36.5); Mean Corpuscular Volume 101 fL (80-100); NEUTROPHILS ABSOLUTE AUTO 9.71 K/mm3 (1.96-9.15); NEUTROPHILS PERCENT AUTO 83 % (41-73); Platelet Count 413 K/mm3 (150-400); RDW Coefficient Variation 14.6 % (11.7-14.2); Red Blood Cell Count 2.63 M/mm3 (3.80-5.20); White Blood Cell Count 11.67 K/mm3 (4.00-11.30)
[2021-12-27 05:02] LABS: Albumin, Blood 2.8 g/dL (3.4-5.0); Albumin/Globulin Ratio 0.6 (0.8-1.8); Bilirubin, Total 0.3 mg/dL (0.1-1.0); Bun/Creatinine Ratio 8.1 (12.0-20.0); Calcium, Blood 8.3 mg/dL (8.5-10.1); Creatinine, Blood 0.62 mg/dL (0.40-1.00); Globulin, Blood 4.5 g/dL (2.2-4.0); Potassium, Blood 2.7 mmol/L (3.5-5.5); Total Protein, Blood 7.3 g/dL (6.4-8.2)
--- NOTE | 2021-12-27 06:53 | NUR ---
SHIFT SUMMARY: NEURO: PATIENT CONFUSED ON PLACE AND SITUATION. FREQUENTLY CALLS OUT AND COMPLAINS OF PAIN, EVEN DURING PAIN MEDICATION ADMINISTRATION. PATIENT EXTREMELEY HARD OF HEARING. REQUESTING TO CALL DAUGHTER MICHAEL MULTIPLE TIMES THROUGHOUT NIGHT. PATIENT WAS NOT OBSERVED TO HAVE SLEPT OVERNIGHT. CARDIAC: WNL, LEVOPHED ON SB SINCE 2100. RESP: COUGHING UP COPIOUS AMOUNTS OF SPUTUM BUT SWALLING IT. UNABLE TO DEEP SUCTION BECAUSE PATIENT SCREAMS. GI/: RUIZ IN PLACE, 3400 UOP OVERNIGHT. SKIN: PATIENT TURNED Q2 HOURS. SKIN DRY AND ITCHY. OTHER: PATIENT CLAIMS PAIN MEDICINE IS NOT ADEQUATE. K+ 2.7 THIS AM, NOTIFIED AND KCL ORDERED.
--- NOTE | 2021-12-27 07:20 | NUR ---
ASSUME CARE: I have assumed care of this patient.
[2021-12-27 14:38] LABS: Hematocrit 25.9 % (33.0-51.0); Hemoglobin 8.1 g/dL (11.5-16.0); Mean Corpuscular HGB 31.4 pg (26.0-34.0); Mean Corpuscular HGB Conc 31.3 g/dL (31.5-36.5); Mean Corpuscular Volume 100 fL (80-100); Platelet Count 381 K/mm3 (150-400); RDW Coefficient Variation 14.6 % (11.7-14.2); Red Blood Cell Count 2.58 M/mm3 (3.80-5.20); White Blood Cell Count 10.55 K/mm3 (4.00-11.30)
[2021-12-27 14:54] LABS: Bun/Creatinine Ratio 7.6 (12.0-20.0); Calcium, Blood 8.4 mg/dL (8.5-10.1); Creatinine, Blood 0.52 mg/dL (0.40-1.00); Potassium, Blood 3.3 mmol/L (3.5-5.5)
--- NOTE | 2021-12-27 18:51 | NUR ---
SHIFT SUMMARY: status changed from ICU to PCU today. NEURO: pt alert and oriented to self and family. Intermittantly oriented to place, year, and situation. This RN spoke to [place] nurse today who states pt's baseline is bedbound. CARDIAC: sinus rhythm on monitor. BP's stable RESPIRATORY: coarse throughout on 4L NC with upper airway congestion. pt encouraged to cough throughout the day. GI/: pt cleared for mechanical soft diet. tolerated dinner well. two BMs today. SKIN: no new breakdown noted PSYCH/SOCIAL: pt anxious. family at bedside and supportive.
[2021-12-28 03:39] LABS: BASOPHILS ABSOLUTE AUTO 0.04 K/mm3 (0.00-0.23); BASOPHILS PERCENT AUTO 0 % (0-2); EOSINOPHILS ABSOLUTE AUTO 0.12 K/mm3 (0.00-0.68); EOSINOPHILS PERCENT AUTO 1 % (0-6); Hematocrit 29.4 % (33.0-51.0); Hemoglobin 9.4 g/dL (11.5-16.0); IMMATURE GRAN ABSOLUTE AUTO 0.35 K/mm3 (0.00-0.10); IMMATURE GRAN PERCENT AUTO 3 % (0-1); LYMPHOCYTES ABSOLUTE AUTO 1.04 K/mm3 (0.84-5.20); LYMPHOCYTES PERCENT AUTO 8 % (21-46); MONOCYTES ABSOLUTE AUTO 0.88 K/mm3 (0.16-1.47); MONOCYTES PERCENT AUTO 7 % (4-13); Mean Corpuscular Volume 100 fL (80-100); Mean Platelet Volume 9.8 fL (9.1-12.4); NEUTROPHILS ABSOLUTE AUTO 10.58 K/mm3 (1.96-9.15); NEUTROPHILS PERCENT AUTO 81 % (41-73); Platelet Count 520 K/mm3 (150-400); RDW Coefficient Variation 14.5 % (11.7-14.2); RDW Standard Deviation 53.1 fL (35.1-46.3); Red Blood Cell Count 2.94 M/mm3 (3.80-5.20); White Blood Cell Count 13.01 K/mm3 (4.00-11.30)
[2021-12-28 03:54] LABS: Bun/Creatinine Ratio 5.9 (12.0-20.0); Calcium, Blood 9.4 mg/dL (8.5-10.1); Creatinine, Blood 0.51 mg/dL (0.40-1.00)
--- NOTE | 2021-12-28 06:25 | NUR ---
SHIFT SUMMARY: GENERAL: PATIENT REMAINS PCU STATUS IN ICU OVERNIGHT. NEURO: PATIENT INITIALLY ORIENTED X4; PROGRESSIVELY MORE CONFUSED AND IRRITABLE OVERNIGHT. AFEBRILE. PAIN SEEMS TO BE NOT WELL-CONTROLLED, BUT PATIENT ALSO SAYS SHE ALWAYS HURTS. VERY [place]. RESP: TITRATED NC TO 2L. SPUTUM SAMPLE SENT TO LAB. PT HAS VERY WET AND PRODUCTIVE COUGH. CARDS: MOSTLY ST OVERNIGHT, OCC SR. NO EDEMA NOTED. MAP >65. MSK/INT: NO NEW SKIN ISSUES NOTED; PT REFUSED MULTIPLE OFFERS FOR Q2HR TURNS, REPOSITIONING. GI/: NO BM THIS SHIFT. ADEQUATE UOP VIA RUIZ.
--- NOTE | 2021-12-28 07:00 | NUR ---
ASSUME CARE: I have assumed care of this patient.
--- NOTE | 2021-12-28 09:00 | NUR ---
PROVIDER UPDATE: team notified of pt's decreased LOC since yesterday. home medications discussed
--- NOTE | 2021-12-28 12:44 | NUR ---
MEDICATION ADMINISTRATION PATIENT WAS UNABLE TO SAFELY SWALLOW A SPOONFUL OF APPLESAUCE AT THE TIME OF MEDICATION ADMINISTRATION, PO MEDS NOT GIVEN AND RETURNED TO [facility]. PATIENT NPO.
--- NOTE | 2021-12-28 14:17 | NUR ---
Spiritual Care Visit Attempted. Pt. is drowsy but responds when I enter the room. Pt. has a hearing impairment. Pt. declines hospital care. This hand rug cleaner asked Pt. if her [facility] knew she was in the hospital. Pt. verbalized that they are aware, and also verbalized gratitude for the spiritual care visit.
--- NOTE | 2021-12-28 17:41 | NUR ---
TRANSFER/SHIFT SUMMARY: report called to medical nurse. NEURO: pt alert to gentle stimulation. she is oriented to self and family. One dose of dilaudid given for pain. Pt kept NPO. This was discussed with provider team. CARDIAC: sinus tachycardia. BP's stable. RESPIRATORY: on home dose of 4L NC. Upper airway "rattle" slightly improved today. Right lung coarse throughout. GI/: incontinent of [address] and draining urine. SKIN: no new breakdown PSYCH/SOCIAL: family at bedside and supportive of pt.
--- NOTE | 2021-12-28 18:47 | NUR ---
PT ARRIVED TO FLOOR AT 1830. PT CLEANED UP AND SETTLED INTO NEW BED. BED ALARM PLACED AND CALL WITHIN REACH. FAMILLY AT BEDSIDE. PT AWAKE, BUT NOT TALKING WILL CONTINUE TO MONITOR.
--- NOTE | 2021-12-28 20:17 | NUR ---
Met with pt and her daughter Catia yesterday afternoon, noted pt's lung sounds extremely wet, daughter reports "she always sounds like this", but then noted she does sound worse than normal, but has noisy, moist breathing at baseline. Pt is extremely [place], only able to hear on her R side, close to ear. Pt lives at [facility], wears oxygen, is bedbound with L BKA. She was diagnosed with septic shock due to R sided pneumonia, dehydration, acute encephalopathy, chronic anemia. She was initially in ICU, was moved to medical floor tonight. Pt's overall status appears to be declining today; although her daughter states she might just be tired (pt stays up until 6am, sleeps until 2pm). By this evening, pt was not just lethargic, she was also unable to swallow sips of water or pills. She is currently NPO. Attempted to call her daughter Catia again this evening, left a message for her. Upon reading chart note, see Catia was present at some point this evening. Will report to Palliative team, and checked in with bedside RN this evening, who also has concerns about general decline. Per ICU nurse today, [facility] RN recently discussed hospice with pt's daughter due to general decline, worsening respiratory status but daughter declined at that time.
[2021-12-28 21:45] LABS: Base Excess Venous 11.4 mmol/L; Bicarbonate Venous 33.9 mmol/L (24.0-30.0); PCO2 Venous 51.4 mmHg (38-42); pH Blood Venous 7.45 (7.34-7.37)
--- NOTE | 2021-12-29 03:18 | NUR ---
PATIENT VERY CONFUSED AND LETHARGIC FIRST HALF OF SHIFT.WOULD WAKE, THEN IMMEDIATELY FALL BACK TO SLEEP. AROUND 0100 PATIENT AWOKE WHEN GRANDSON WHO IS AN RN HERE AT [facility], CAME TO VISIT HER. SHE WAS ABLE TO OPEN HER EYES, AND WOULD EVEN ALLOW HIM TO SWAB THE INSIDE OF HER MOUTH. SHE WAS ABLE TO TRACK HIM HE WALKED AROUND THE BED, AND EVEN GESTURE THAT SHE WAS THIRSTY. SEVERAL REQUESTS TO EVENING HOSPITALIST REGARDING PATIENT'S INABILITY TO SWALLOW EVEN 2-3ML OF PUREE/NECTAR CONSISTANCY FLUID WITHOUT CHOKING. PATIENT MADE NPO, CBG'S NOW Q6 HOURS. EVENING ORAL MEDICATIONS SUBSTITUTED WITH MEDS VIA OTHER ROUTES. LUNG SOUNDS ARE COARSE AND WET SOUNDING THROUGHOUT. STRONG LOOSE SOUNDING NON PRODUCTIVE COUGH. PATIENT BATS AWAY ANY ATTEMPTS AT ORAL SUCTIONING. PER RT, MUCOUS IS TOO FAR DOWN TO BE REACHED WITH DEEP SUCTIONING. STERILE WATER WAS ADDED IN AN ATTEMPT TO MAKE IT EASIER FOR PATIENT TO EVACUATE WITH A STRONG COUGH. NIGHT HOSPITALIST ASKED THAT THE DAYTIME HOSPITALIST DETERMINE WHAT TO DO WITH HER 0900 DOSES OF DITROPAN AND PLAVIX
[2021-12-29 05:18] LABS: BASOPHILS ABSOLUTE AUTO 0.03 K/mm3 (0.00-0.23); BASOPHILS PERCENT AUTO 0 % (0-2); EOSINOPHILS ABSOLUTE AUTO 0.21 K/mm3 (0.00-0.68); EOSINOPHILS PERCENT AUTO 2 % (0-6); Hematocrit 27.6 % (33.0-51.0); Hemoglobin 8.5 g/dL (11.5-16.0); IMMATURE GRAN ABSOLUTE AUTO 0.24 K/mm3 (0.00-0.10); IMMATURE GRAN PERCENT AUTO 3 % (0-1); LYMPHOCYTES ABSOLUTE AUTO 1.41 K/mm3 (0.84-5.20); LYMPHOCYTES PERCENT AUTO 15 % (21-46); MONOCYTES ABSOLUTE AUTO 0.69 K/mm3 (0.16-1.47); MONOCYTES PERCENT AUTO 8 % (4-13); Mean Corpuscular HGB 31.1 pg (26.0-34.0); Mean Corpuscular HGB Conc 30.8 g/dL (31.5-36.5); Mean Corpuscular Volume 101 fL (80-100); Mean Platelet Volume 9.5 fL (9.1-12.4); NEUTROPHILS ABSOLUTE AUTO 6.57 K/mm3 (1.96-9.15); NEUTROPHILS PERCENT AUTO 72 % (41-73); Platelet Count 507 K/mm3 (150-400); RDW Coefficient Variation 14.6 % (11.7-14.2); RDW Standard Deviation 54.9 fL (35.1-46.3); Red Blood Cell Count 2.73 M/mm3 (3.80-5.20); White Blood Cell Count 9.15 K/mm3 (4.00-11.30)
[2021-12-29 05:46] LABS: Albumin, Blood 2.7 g/dL (3.4-5.0); Albumin/Globulin Ratio 0.6 (0.8-1.8); Bilirubin, Total 0.5 mg/dL (0.1-1.0); Bun/Creatinine Ratio 12.9 (12.0-20.0); Calcium, Blood 9.3 mg/dL (8.5-10.1); Creatinine, Blood 0.62 mg/dL (0.40-1.00); Globulin, Blood 4.6 g/dL (2.2-4.0); Potassium, Blood 3.2 mmol/L (3.5-5.5); Total Protein, Blood 7.3 g/dL (6.4-8.2)
--- NOTE | 2021-12-29 11:15 | NUR ---
Met with Paloma this morning. She is awake and saying "water, water, water." She is able to answer questions with one word responses or she will alsoo write down her responses. She reports that she is thirsty. Provided her with nectar thick water per ST recommendations. HOB elevated. Voice sounds wet but she is able to have a strong productive cough to clear secretions. Paloma reports that she has pain in her left knee and holds up 6 fingers when asked on the 0-10 pain scale what her pain level is. Paloma requested that this automobile service writer call her dtr Catia. Paloma states no particular reason to call dtr, she just asked that I call her. Nursing notified of pt's pain. Will call dtr, Catia, and give her an update on Paloma's condition.
--- NOTE | 2021-12-29 14:17 | NUR ---
LM earlier today for Catia to return my call. Catia called back and this business writer updated her on pt's current condition. Spoke with Dr. Doe prior to speaking with pt's dtr today. Pt with new diarrhea and a stool sample has been sent to lab. Discussed pt's current status and trajectory of ups and downs that will likely occur in the future. Discussed updating POLST with Catia who is open to changing the POLST to match Paloma's current wishes which are DNR with limited treatments. New POLST filled out and placed on pt's white board for MD to sign. Will process new POLST once signed. Discussed [facility] program with Catia and she is interested in this program. Catia's hope for her mom is for her to be able to return to [facility] after discharge. Updated nursing and CM. Will print out referral information and fax the referral to [facility]. Paolma is sleeping this afternoon when this business writer went back to check in on her.
[2021-12-29 17:35] LABS: Adenovirus F 40/41 Not Detected (NOT DETECT); Astrovirus Not Detected (NOT DETECT); Campylobacter Sp Not Detected (NOT DETECT); Cryptosporidium Not Detected (NOT DETECT); Cyclospora Cayetanensis Not Detected (NOT DETECT); E. Coli O157 Not Detected (NOT DETECT); Entamoeba Histolytica Not Detected (NOT DETECT); Enteroaggregative E. coli-EAEC Not Detected (NOT DETECT); Enteropathogenic E. coli-EPEC Not Detected (NOT DETECT); Enterotoxigenic E. coli-ETEC Not Detected (NOT DETECT); Giardia Lamblia Not Detected (NOT DETECT); Norovirus GI/GII Not Detected (NOT DETECT); Plesiomonas Shigelloides Not Detected (NOT DETECT); Rotavirus A Not Detected (NOT DETECT); Salmonella Sp Not Detected (NOT DETECT); Sapovirus Not Detected (NOT DETECT); Shiga Toxin-prod E. coli-STEC Not Detected (NOT DETECT); Shigella/Enteroin E. coli-EIEC Not Detected (NOT DETECT); Vibrio Cholerae Not Detected (NOT DETECT); Vibrio Sp Not Detected (NOT DETECT); Yersinia Enterocolitica Not Detected (NOT DETECT)
--- NOTE | 2021-12-29 17:58 | NUR ---
SHIFT SUMMARY PT A&OX4 AND IN PLEASENT MOOD T/O SHIFT. LARGE LOOSE YELLOW MUCOUS STOOL NOTED-STOOL SAMPLE PENDING. TOLERATING PO INTAKE. ABLE TO VERBALIZE AND WRITE NEEDS. DAUGHTER IN TO SEE PT. PAIN MEDICATED PER EMAR. CALL LIGHT W/IN REACH.
[2021-12-30 04:56] LABS: BASOPHILS ABSOLUTE AUTO 0.06 K/mm3 (0.00-0.23); BASOPHILS PERCENT AUTO 1 % (0-2); EOSINOPHILS ABSOLUTE AUTO 0.34 K/mm3 (0.00-0.68); EOSINOPHILS PERCENT AUTO 3 % (0-6); Hematocrit 29.8 % (33.0-51.0); Hemoglobin 9.2 g/dL (11.5-16.0); IMMATURE GRAN ABSOLUTE AUTO 0.31 K/mm3 (0.00-0.10); IMMATURE GRAN PERCENT AUTO 3 % (0-1); LYMPHOCYTES ABSOLUTE AUTO 1.56 K/mm3 (0.84-5.20); LYMPHOCYTES PERCENT AUTO 13 % (21-46); MONOCYTES ABSOLUTE AUTO 0.84 K/mm3 (0.16-1.47); MONOCYTES PERCENT AUTO 7 % (4-13); Mean Corpuscular HGB 30.7 pg (26.0-34.0); Mean Corpuscular HGB Conc 30.9 g/dL (31.5-36.5); Mean Corpuscular Volume 99 fL (80-100); Mean Platelet Volume 9.6 fL (9.1-12.4); NEUTROPHILS ABSOLUTE AUTO 8.63 K/mm3 (1.96-9.15); NEUTROPHILS PERCENT AUTO 74 % (41-73); Platelet Count 543 K/mm3 (150-400); RDW Coefficient Variation 14.6 % (11.7-14.2); RDW Standard Deviation 53.5 fL (35.1-46.3); White Blood Cell Count 11.74 K/mm3 (4.00-11.30)
[2021-12-30 05:25] LABS: Albumin/Globulin Ratio 0.6 (0.8-1.8); Bilirubin, Total 0.5 mg/dL (0.1-1.0); Bun/Creatinine Ratio 10.4 (12.0-20.0); Calcium, Blood 9.3 mg/dL (8.5-10.1); Creatinine, Blood 0.58 mg/dL (0.40-1.00); Globulin, Blood 4.7 g/dL (2.2-4.0); Potassium, Blood 3.2 mmol/L (3.5-5.5); Total Protein, Blood 7.7 g/dL (6.4-8.2)
--- NOTE | 2021-12-30 06:02 | NUR ---
TECHNICAL INTERNSHIP SUMMARY PT AOX/3-4 T/O SHIFT; COMMUNICATION AND FOLLOWING DIRECTIONS DIFFICULT DUE TO PT HARD OF HEARING. PT SOMETIMES USING A PEN/PAPER TO WRITE NEEDS. PT RESTED INTERMITTANTLY T/O THE SHIFT. USED CALL LIGHT FREQUENTLY BUT DENIED NEEDING ANYTHING MOST OF THE TIME. PT HAD SMALL LOOSE/MUCOUS STOOL; STOOL CULTURE RETURNED NEGATIVE; CONTACT/ENTERIC PRECAUTIONS STOPPED. RUIZ IN PLACE; PATENT; DRAINING TO GRAVITY. PT STILL C/O FEELING NEED TO URINATE; SCANNED BLADDER--1 ML URINE DETECTED. PT LUNGS VERY COARSE/WET; RT REPORTED PT NOT TOLERATING BREATHING TREATMENTS R/T FLUID IN LUNGS. CONTACTED DR--NEW ORDER FOR 1X 20MG IV LASIX; OUTPUT INCREASED; PT SKIN CLAMMY/MOIST.
--- NOTE | 2021-12-30 19:40 | NUR ---
SHIFT SUMMARY: NO ACUTE EVENTS. TELEMETRY SHOWED AC JUNCTIONAL RHYTHM IN THE 70'S. 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 ON O2 @ 4 L/MIN HUMIDIFIED (BASELINE); HAS WEAK COUGH EFFORT, RHONCHOROUS BREATH SOUNDS IN UPPER AIRWAY THAT SHE IS UNABLE TO CLEAR. PO INTAKE IS POOR. RUIZ DRAINING HUBERT URINE. SERUM POTASSIUM 3.2 THIS MORNING, REPLACED WITH KCL 40 MEQ IV SINCE PATIENT REFUSED KCL CRUSHED IN APPLESAUCE. C/O PAIN IN LLE AND BACK; MEDICATED PER EMAR WITH LITTLE RELIEF. DAUGHTER MICHAEL VISITED THIS AFTERNOON.
[2021-12-31 06:57] LABS: BASOPHILS ABSOLUTE AUTO 0.06 K/mm3 (0.00-0.23); BASOPHILS PERCENT AUTO 0 % (0-2); EOSINOPHILS ABSOLUTE AUTO 0.33 K/mm3 (0.00-0.68); EOSINOPHILS PERCENT AUTO 2 % (0-6); Hematocrit 29.6 % (33.0-51.0); Hemoglobin 8.6 g/dL (11.5-16.0); IMMATURE GRAN ABSOLUTE AUTO 0.21 K/mm3 (0.00-0.10); IMMATURE GRAN PERCENT AUTO 2 % (0-1); LYMPHOCYTES ABSOLUTE AUTO 1.21 K/mm3 (0.84-5.20); LYMPHOCYTES PERCENT AUTO 9 % (21-46); MONOCYTES ABSOLUTE AUTO 0.99 K/mm3 (0.16-1.47); MONOCYTES PERCENT AUTO 7 % (4-13); Mean Corpuscular HGB 30.2 pg (26.0-34.0); Mean Corpuscular HGB Conc 29.1 g/dL (31.5-36.5); Mean Platelet Volume 9.8 fL (9.1-12.4); NEUTROPHILS ABSOLUTE AUTO 10.77 K/mm3 (1.96-9.15); NEUTROPHILS PERCENT AUTO 80 % (41-73); Platelet Count 490 K/mm3 (150-400); RDW Coefficient Variation 14.6 % (11.7-14.2); RDW Standard Deviation 55.1 fL (35.1-46.3); Red Blood Cell Count 2.85 M/mm3 (3.80-5.20); White Blood Cell Count 13.57 K/mm3 (4.00-11.30)
[2021-12-31 07:15] LABS: Mean Corpuscular Volume 104 fL (80-100)
[2021-12-31 07:24] LABS: Bun/Creatinine Ratio 7.3 (12.0-20.0); Calcium, Blood 8.7 mg/dL (8.5-10.1); Creatinine, Blood 1.92 mg/dL (0.40-1.00); Potassium, Blood 4.1 mmol/L (3.5-5.5)
--- NOTE | 2021-12-31 08:12 | NUR ---
PATIENT PROFOUNDLY DISTRAUGHT DURING FIRST FEW HOURS OF SHIFT. YELLING THIS RN'S NAME REPEATEDLY EACH TIME WE WOULD TRY TO LEAVE THE ROOM. WHEN SHE WOULD CALM DOWN FOR A MOMENT SHE WOULD RESPOND POSITIVELY WHEN ASKED IF SHE WOULD LIKE SOMETHING TO HELP HER SLEEP. THE OTHER WORD SHE WOULD YELL WAS NO NO NO! EACH TIME WE WOULD TOUCH HER TO ADJUST HER POSITION. hOSPITALIST WAS NOTIFIED, AND REQUEST FOR MORE APPROPRIATE PAIN MEDICINE THAN TYLENOL OR IV FENTANYL. ORDER FOR 50MG TRAMADOL RECEIVED AND GIVEN. SHE CONTINUED TO YELL AND WAS NOW BANGING HER CUP ON HER TABLE. CALL PLACED TO NIGHT HOSPITALIST. ORDER RECEIVEDD AROUND 0115 FOR IV TORADOL AND 5MG IM ZYPREX TORADOL WAS GIVEN AT 0150, AND PATIENT WAS BEGINNING TO GET DROWSY SO HELD THE ONE TIME ZYPREXA DOSE AND PATIENT ACTUALLY SLEPT THROUGH BEYOND THE END OF THE SHIFT. PATIENT'S ORAL INTAKE WAS MUCH IMPROVED. SHE DRANK LITTLE OVER 450ML OVERNIGHT. URINE OUTPUT WAS 450 FROM RUIZ AT 0600 THIS MORNING
[2021-12-31 09:59] LABS: Vancomycin, Trough 16.9 ug/mL (5.0-10.0)
--- NOTE | 2021-12-31 15:23 | NUR ---
Returned to room to process completed POLST, left for Dr to sign on Saturday. It had not been signed yet. Placed POLST in more visible area and spoke with RN re: signature needed when they rounded next. Will check back in am. Pt was sleeping when I was by the room this am. No visitors were present at that time.
--- NOTE | 2021-12-31 18:21 | NUR ---
SHIFT SUMMARY: NO ACUTE EVENTS. MORE ALERT AND CONVERSANT TODAY BUT NOT AT HER BASELINE PER HER DAUGHTER. BREATH SOUNDS A LITTLE CLEARER AND COUGH EFFORT IS STRONGER. NO EVENTS ON TELEMETRY, SR @ 81. C/O PAIN IN BACK AND LEGS; MEDICATED PER EMAR WITH SOME RELIEF. HAD TWO MUCOID BM'S TODAY. TOLERATING PUREED DIET, BUT DOES NOT LIKE THE CONSISTENCY. HAD A LITTLE BIT BETTER PO FLUID INTAKE TODAY. RUIZ DRAINING YELLOW URINE. DAUGHTER EXPRESSED CONCERN THAT PATIENT MAY BE DISCHARGED PREMATURELY.
[2022-01-01 05:50] LABS: BASOPHILS ABSOLUTE AUTO 0.04 K/mm3 (0.00-0.23); BASOPHILS PERCENT AUTO 0 % (0-2); EOSINOPHILS PERCENT AUTO 3 % (0-6); Hematocrit 26.6 % (33.0-51.0); IMMATURE GRAN ABSOLUTE AUTO 0.27 K/mm3 (0.00-0.10); IMMATURE GRAN PERCENT AUTO 2 % (0-1); LYMPHOCYTES ABSOLUTE AUTO 1.33 K/mm3 (0.84-5.20); LYMPHOCYTES PERCENT AUTO 10 % (21-46); MONOCYTES ABSOLUTE AUTO 0.88 K/mm3 (0.16-1.47); MONOCYTES PERCENT AUTO 7 % (4-13); Mean Corpuscular HGB 30.7 pg (26.0-34.0); Mean Corpuscular HGB Conc 30.1 g/dL (31.5-36.5); Mean Corpuscular Volume 102 fL (80-100); Mean Platelet Volume 9.6 fL (9.1-12.4); NEUTROPHILS ABSOLUTE AUTO 10.49 K/mm3 (1.96-9.15); NEUTROPHILS PERCENT AUTO 78 % (41-73); Platelet Count 428 K/mm3 (150-400); RDW Coefficient Variation 14.6 % (11.7-14.2); RDW Standard Deviation 54.3 fL (35.1-46.3); Red Blood Cell Count 2.61 M/mm3 (3.80-5.20); White Blood Cell Count 13.41 K/mm3 (4.00-11.30)
[2022-01-01 06:33] LABS: Anion Gap 8 mmol/L (6-16); Blood Urea Nitrogen 15 mg/dL (8-24); Bun/Creatinine Ratio 7.2 (12.0-20.0); CO2, Blood 27 mmol/L (21-32); Calcium, Blood 8.5 mg/dL (8.5-10.1); Chloride, Blood 107 mmol/L (98-108); Creatinine, Blood 2.07 mg/dL (0.40-1.00); Glomerular Filtration Rate 25 (60-); Glucose, Blood 103 mg/dL (70-99); Potassium, Blood 3.8 mmol/L (3.5-5.5); Sodium, Blood 142 mmol/L (136-145); Vancomycin, Random 20.7 ug/mL
--- NOTE | 2022-01-01 07:12 | NUR ---
A/Ox2; SELF AND PLACE. VERY [place]. CALM AND COOPERATIVE. DECLINES SKYLAR CARE BY MALE NURSING STAFF (PREFERENCE RESPECTED, INC CARE BY FEMALE STAFF ONLY). C/O 7/10 PAIN; PRN IV ANALGISIC HELPFUL PER PATIENT. STATED NO RELIEF S/P TRAMADOL ADMINISTRATION. CONTINUES WITH LOOSE INC STOOL. EXCORIATION /ABRASION BILAT BUTTOCKS; Q2 TURN, BARRIER CREAM, HEELS FLOATED, PILLOW SUPPORT. PATIENT AFFIRMS COMFORT AFTER EACH REPOSITIONING. RUIZ PATENT, GOOD OUTPUT THIS SHIFT (1,000 ML NS INFUSED ON DAY SHIFT), CATH CARE DONE. SLEEP PROMOTED. BED ALARM SET. CALL LIGHT IN REACH; ENCOURAGED TO MAKE NEEDS KNOWN.
--- NOTE | 2022-01-01 15:08 | NUR ---
Fully completed and signed POLST sent to medical records for scanning into EMR. CM working on d/c planning with return to [facility] planned. [facility] program recommended per lorne's interest in conversations with [facility] team.
--- NOTE | 2022-01-01 15:50 | NUR ---
PT RESTING QUIETLY AWAKE AT START OF SHIFT. YELL OUT FOR PAIN MEDICATION BEFORE BREAKFAST. CALL LT AVAILABLE, BUT DOES NOT USE. PT VERY [place], C/O PAIN TO LLE BKA. MEDICATED PER EMAR. PT ABLE TO TAKE PO MEDS CRUSHED IN APPLESAUCE. VERY WEAK AND DECONDITIONED; WILL NOT EAT OR DRINK MUCH AT ALL. 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 LUNGS T/O CLEAR BUT DIMINISHED. UPPER AIRWAY COARSE. PT ON 2L O2 VIA N/C WITH BIOX AT 94%. PT IS W/C BOUND AT BASELINE PER REPORT AND LIVING AT [facility]. RUIZ TO GRAVITY, PATENT WITH DECREASED URINE OUTPUT PT DOES NOT WANT TO DRINK MUCH BEING ON THICKENED LIQUIDS. MARIN TX BACK TO [facility] HERE AT 1530 FOR BOATING SAFETY OFFICER.
[2022-01-02] MEDS ORDERED: CLIN300 PO (18:05)
== END 2022-01-01 15:48 | DRG 871 ==
LOC: ER 13:02 → ICUW 16:38 → MEDS 16:38 → ICUW 18:30 → MEDS 12-28 18:25
PROVIDERS: Internal Medicine; Student in an Organized Health Care Education/Training Program; ADMIT Internal Medicine
PROC: 3E033XZ Introduction of Vasopressor into Peripheral Vein, Percutaneous Approach (ICD-10-PCS; principal; 2021-12-26)
PROC: 3E03329 Introduction of Other Anti-infective into Peripheral Vein, Percutaneous Approach (ICD-10-PCS; 2021-12-26)
DX: A41.02 Sepsis due to Methicillin resistant Staphylococcus aureus (principal); G93.41 Metabolic encephalopathy; J18.9 Pneumonia, unspecified organism; R65.21 Severe sepsis with septic shock; J96.01 Acute respiratory failure with hypoxia; J69.0 Pneumonitis due to inhalation of food and vomit; G45.9 Transient cerebral ischemic attack, unspecified; N17.9 Acute kidney failure, unspecified; J44.0 Chronic obstructive pulmonary disease with (acute) lower respiratory infection; J44.1 Chronic obstructive pulmonary disease with (acute) exacerbation; E87.6 Hypokalemia; Z66 Do not resuscitate; E83.42 Hypomagnesemia; D63.8 Anemia in other chronic diseases classified elsewhere; I10 Essential (primary) hypertension; M79.7 Fibromyalgia; E78.00 Pure hypercholesterolemia, unspecified; R82.71 Bacteriuria; K59.00 Constipation, unspecified; I70.222 Atherosclerosis of native arteries of extremities with rest pain, left leg; N14.19 Nephropathy induced by other drugs, medicaments and biological substances; T36.8X5A Adverse effect of other systemic antibiotics, initial encounter; E11.51 Type 2 diabetes mellitus with diabetic peripheral angiopathy without gangrene; Z20.822 Contact with and (suspected) exposure to COVID-19; B96.4 Proteus (mirabilis) (morganii) as the cause of diseases classified elsewhere; E86.0 Dehydration; I25.10 Atherosclerotic heart disease of native coronary artery without angina pectoris; Z86.73 Personal history of transient ischemic attack (TIA), and cerebral infarction without residual deficits; Z89.512 Acquired absence of left leg below knee; Z88.5 Allergy status to narcotic agent; Z88.8 Allergy status to other drugs, medicaments and biological substances; Z79.899 Other long term (current) drug therapy; Z79.02 Long term (current) use of antithrombotics/antiplatelets; Z79.01 Long term (current) use of anticoagulants; Z79.51 Long term (current) use of inhaled steroids; Z79.891 Long term (current) use of opiate analgesic; Z79.4 Long term (current) use of insulin; I25.2 Old myocardial infarction; Z86.19 Personal history of other infectious and parasitic diseases; Z95.5 Presence of coronary angioplasty implant and graft; Z90.710 Acquired absence of both cervix and uterus; Z90.721 Acquired absence of ovaries, unilateral; Z90.49 Acquired absence of other specified parts of digestive tract; Z98.890 Other specified postprocedural states; Z95.820 Peripheral vascular angioplasty status with implants and grafts
CPT/HCPCS: 0241U; 36415; 51702; 70450; 71045; 80048; 80053; 80202; 81001; 82803; 82947; 83605; 83735; 83880; 85025; 85027; 87040; 87070; 87077; 87086; 87147; 87186; 87205; 87507; 92526; 92610; 93005; 93010; 94640; 94664; 94760; 94762; 96361-59; 96365-59; 96368; 96375-59; 99285-25; A9270; C1751; C9113; J0456; J1170; J1650; J1720; J1815; J1885; J1940; J2405; J2543; J3010; J3370; J3475; J3480; J7030; J7050; J7060; P9047

== ENCOUNTER 2022-01-04 10:29 | Inpatient (IN) | payer OTHER ==
[~2022-01-04] VITALS: Ht 160 cm; Wt 64.0 kg
[~2022-01-04 10:29] MED LIST changes: +ALBU2.5V5 INH; +CLIN300 PO; +Flovent Disku100 MCG INH; +INSULANI SC; +IPRAT-ALBUT 0.5-3 ML INH; +MYLANTA MAXIMUM10 ML PO; +ONDA4 PO; +OXYB5 PO; +PROBIOTIC1 EA13 PO; +ZINC OXIDE57 GM TOP; +[UNRECOGNIZED DRUG - OTHER]
[2022-01-04 12:08] LABS: BASOPHILS ABSOLUTE AUTO 0.08 K/mm3 (0.00-0.23); BASOPHILS PERCENT AUTO 0 % (0-2); EOSINOPHILS ABSOLUTE AUTO 0.21 K/mm3 (0.00-0.68); EOSINOPHILS PERCENT AUTO 1 % (0-6); Hematocrit 33.6 % (33.0-51.0); Hemoglobin 9.8 g/dL (11.5-16.0); IMMATURE GRAN ABSOLUTE AUTO 0.45 K/mm3 (0.00-0.10); IMMATURE GRAN PERCENT AUTO 2 % (0-1); LYMPHOCYTES ABSOLUTE AUTO 1.14 K/mm3 (0.84-5.20); LYMPHOCYTES PERCENT AUTO 6 % (21-46); MONOCYTES ABSOLUTE AUTO 1.41 K/mm3 (0.16-1.47); MONOCYTES PERCENT AUTO 7 % (4-13); Mean Corpuscular HGB 30.2 pg (26.0-34.0); Mean Corpuscular HGB Conc 29.2 g/dL (31.5-36.5); Mean Corpuscular Volume 103 fL (80-100); Mean Platelet Volume 10.1 fL (9.1-12.4); NEUTROPHILS ABSOLUTE AUTO 16.01 K/mm3 (1.96-9.15); NEUTROPHILS PERCENT AUTO 83 % (41-73); Platelet Count 370 K/mm3 (150-400); RDW Coefficient Variation 14.6 % (11.7-14.2); RDW Standard Deviation 55.7 fL (35.1-46.3); Red Blood Cell Count 3.25 M/mm3 (3.80-5.20)
[2022-01-04 12:29] LABS: Influenza A, PCR NEGATIVE (NEGATIVE); Influenza B, PCR NEGATIVE (NEGATIVE); Resp Syncytial Virus, PCR NEGATIVE (NEGATIVE); SARS-Cov-2 (COVID-19) PCR, MMC NEGATIVE (NEGATIVE)
[2022-01-04 12:31] LABS: Albumin, Blood 2.6 g/dL (3.4-5.0); Albumin/Globulin Ratio 0.5 (0.8-1.8); Bilirubin, Total 0.3 mg/dL (0.1-1.0); Calcium, Blood 8.7 mg/dL (8.5-10.1); Creatinine, Blood 1.81 mg/dL (0.40-1.00); Globulin, Blood 5.1 g/dL (2.2-4.0); Potassium, Blood 4.5 mmol/L (3.5-5.5); Total Protein, Blood 7.7 g/dL (6.4-8.2)
--- NOTE | 2022-01-04 15:50 | NUR ---
Report received from ER Nurse
[2022-01-04 17:23] LABS: Source, Urine Foley catheter
[2022-01-04 17:40] LABS: Appearance, Urine Turbid (Clear); Bilirubin, Urine Neg (Neg); Blood, Urine 4+ (Neg); Color, Urine Yellow (P-Yellow); Glucose Qualitative, Urine Neg (Neg); Ketones, Urine Neg (Neg); Leukocyte Esterase, Urine 3+ (Neg); Nitrite, Urine Neg (Neg); Protein, Urine 3+ (Neg); Urobilinogen, Urine NORM (Normal)
[2022-01-04 18:12] LABS: Yeast/Fungi Urine Mod /hpf
[2022-01-04 18:13] LABS: Transitional Epithelial Cells Mod /hpf (0-Rare); White Blood Cells, Urine TNTC /hpf (0-5)
[2022-01-04 18:14] LABS: Bacteria Many /hpf; Squamous Epithelial Cells Mod /hpf (Few)
[2022-01-04 18:15] LABS: Renal Epithelial Few /hpf (0-Rare)
--- NOTE | 2022-01-04 18:29 | NUR ---
Call to Dr. Soto with concern for labile blood pressures, unimproved after NS bolus and antibiotics. New order rec'd for additional bolus IVF
--- NOTE | 2022-01-04 22:31 | NUR ---
ASSUMED CARE AT 1900 PATIENT IS ALERT AND ORIENTED X4, CAN BE FORGETFUL. 02 SATS >95% ON BASELINE OF 2L VIA NC. LS COARSE T/O WITH A PRODUCTIVE COUGH, THICK YELLOW SPUTUM. DENIES CP/PRESSURE. HR SR 80-90s. RUIZ PATENT AND DRAINING TO GRAVITY, PER DAYSHIFT RN RUIZ WAS CHANGED ON ADMIT AND UA SENT TO LAB. PATIENT GETTING 1L BOLUS OF NS AT START OF SHIFT, BP IMPROVED BRIEFLY. BP BECAME HYPOTENSIVE AGAIN WITH MAP IN THE 50s, SYSTOLIC 70s, CALLED RESIDENT, 250 MLS BOLUS GIVEN, BP REMAINED HYPOTENSIVE, CALLED RESIDENT AGAIN AND MIDODRINE GIVEN. NS INFUSING AT 125 MLS/HR. PATIENT STATES SHE IS A LITTLE TIRED BUT DENIES ANY DIZZINESS/SOB. MEDICATIONS GIVEN CRUSHED IN APPLESAUCE. HUNTER AT [facility] AND DISCUSSED PATIENT CONDITION, WILL NOTIFY HER OF ANY CHANGES. SEE SHIFT ASSESSMENT FOR MORE INFORMATION.
--- NOTE | 2022-01-05 01:20 | NUR ---
PATIENT BLOOD PRESSURE WITH MAP IN THE 50s, CALLED THE RESIDENT. ORDERS TO START LEVOPHED, AND TRANSFER PATIENT TO THE ICU. REPORT GIVEN TO MARIO CISNEROS. WILL TRANSFER PATIENT TO ICU.
--- NOTE | 2022-01-05 01:23 | NUR ---
DAUGHTER MICHAEL NOTIFIED OF PATIENT BEING TRANSFERRED TO ICU
--- NOTE | 2022-01-05 01:53 | NUR ---
PATIENT TRANSFERED TO ICU 12 AT APPROX 0140
--- NOTE | 2022-01-05 01:55 | NUR ---
PT. BROUGHT OVER FROM PCU FOR HYPOTENSION. LEVO STARTED IN PCU AND PT. IS CURRENTLY ON 5 OF LEVO WITH A MAP OF 63.
[2022-01-05 05:05] LABS: BASOPHILS ABSOLUTE AUTO 0.11 K/mm3 (0.00-0.23); BASOPHILS PERCENT AUTO 0 % (0-2); EOSINOPHILS ABSOLUTE AUTO 0.28 K/mm3 (0.00-0.68); EOSINOPHILS PERCENT AUTO 1 % (0-6); Hematocrit 31.2 % (33.0-51.0); IMMATURE GRAN ABSOLUTE AUTO 0.92 K/mm3 (0.00-0.10); IMMATURE GRAN PERCENT AUTO 4 % (0-1); LYMPHOCYTES ABSOLUTE AUTO 1.81 K/mm3 (0.84-5.20); LYMPHOCYTES PERCENT AUTO 7 % (21-46); MONOCYTES ABSOLUTE AUTO 2.06 K/mm3 (0.16-1.47); MONOCYTES PERCENT AUTO 8 % (4-13); Mean Corpuscular HGB Conc 28.8 g/dL (31.5-36.5); Mean Corpuscular Volume 104 fL (80-100); Mean Platelet Volume 10.2 fL (9.1-12.4); NEUTROPHILS ABSOLUTE AUTO 20.64 K/mm3 (1.96-9.15); NEUTROPHILS PERCENT AUTO 80 % (41-73); Platelet Count 409 K/mm3 (150-400); RDW Coefficient Variation 15.2 % (11.7-14.2); RDW Standard Deviation 57.8 fL (35.1-46.3); White Blood Cell Count 25.82 K/mm3 (4.00-11.30)
[2022-01-05 06:17] LABS: Albumin, Blood 2.1 g/dL (3.4-5.0); Albumin/Globulin Ratio 0.5 (0.8-1.8); Bilirubin, Total 0.3 mg/dL (0.1-1.0); Bun/Creatinine Ratio 10.6 (12.0-20.0); Calcium, Blood 7.2 mg/dL (8.5-10.1); Creatinine, Blood 1.61 mg/dL (0.40-1.00); Globulin, Blood 4.4 g/dL (2.2-4.0); Magnesium, Blood 0.6 mg/dL (1.6-2.4); Potassium, Blood 4.1 mmol/L (3.5-5.5); Total Protein, Blood 6.5 g/dL (6.4-8.2)
--- NOTE | 2022-01-05 06:37 | NUR ---
SHIFT SUMMARY: PT. CAME IN OVERNIGHT FROM U AR[facility]OUND 0200 FOR HYPOTENSION. PT. IS ON LEVO AT 6 AND IS DOING WELL KEEPING MAPS ABOVE 60. PT. IS ON 7L NC AND SATS WELL ON THOSE SETTINGS. PT. SEEMS TO HAVE RESPIRATORY ISSUES RELATED TO NOT COUGHING UNLESS ENCOURAGED. PT. CLEARS AND SATS MUCH BETTER WHEN SHE COUGHS UP PHLEM. OTHERWISE PT. COMPLAINS OF OCCASIONAL NERVE PAIN BUT HAS NO COMPLAINTS AT THIS TIME. PT. RESTING IN BED WITH CALL LIGHT IN REACH.
--- NOTE | 2022-01-05 07:15 | NUR ---
Assumed care of pt at 0700. Report received from Jeferson CISNEROS. Pt hard of hearing. Can hear out of right ear. Pt A&O x 2. Answers questions, follows commands, verbalizes needs. Pleasant and cooperative with care. SPO2 90% or greater with 7 LPM NC. Baseline use is [address] per monitor. BP stable.
--- NOTE | 2022-01-05 19:09 | NUR ---
SUMMARY Neuro: Pt A&O x 2. Answers questions, follows commands. Verbalizes needs. Overall pleasant and cooperative with care. Musc: Reportedly bedbound at baseline. Able to assist with Q2H repositioning. Resp: Loose, moist, wet cough. Sputum not visualized as pt often swallows it. SpO2 90% or greater with 3 LPM NC. Cardiac: ST earlier in shift, but currently now SR. BP stable with 5 mcg/min levophed through PICC line to RUE. GI: No BM this shift. Tolerating diet prescribed by speech therapy without difficulty. : Baltazar catheter patent and draining clear, yellow urine. Skin: Rash and edema to left upper arm, medial aspect. Asked Dr Garcia to assess arm is it previously had a powerglide to cephalic vein with levophed. Ultrasound ordered. Discussed with provider low likehood of rash to be caused by levophed extravasation considering PG was on lateral aspect of arm and rash is medial. Psych: Daughter and bedside for majority of day. Updated.
--- NOTE | 2022-01-06 01:15 | NUR ---
PATIENT RESTING IN BED WITH EYES CLOSED. APPEARS COMFORTABLE IN NAD.
[2022-01-06 05:32] LABS: BASOPHILS ABSOLUTE AUTO 0.08 K/mm3 (0.00-0.23); BASOPHILS PERCENT AUTO 0 % (0-2); EOSINOPHILS ABSOLUTE AUTO 0.35 K/mm3 (0.00-0.68); EOSINOPHILS PERCENT AUTO 2 % (0-6); Hematocrit 24.5 % (33.0-51.0); Hemoglobin 7.4 g/dL (11.5-16.0); IMMATURE GRAN ABSOLUTE AUTO 0.76 K/mm3 (0.00-0.10); IMMATURE GRAN PERCENT AUTO 3 % (0-1); LYMPHOCYTES ABSOLUTE AUTO 1.17 K/mm3 (0.84-5.20); LYMPHOCYTES PERCENT AUTO 5 % (21-46); MONOCYTES ABSOLUTE AUTO 1.43 K/mm3 (0.16-1.47); MONOCYTES PERCENT AUTO 6 % (4-13); Mean Corpuscular HGB 30.2 pg (26.0-34.0); Mean Corpuscular HGB Conc 30.2 g/dL (31.5-36.5); Mean Corpuscular Volume 100 fL (80-100); Mean Platelet Volume 10.2 fL (9.1-12.4); NEUTROPHILS ABSOLUTE AUTO 18.45 K/mm3 (1.96-9.15); NEUTROPHILS PERCENT AUTO 83 % (41-73); Platelet Count 391 K/mm3 (150-400); RDW Coefficient Variation 15.4 % (11.7-14.2); RDW Standard Deviation 55.8 fL (35.1-46.3); Red Blood Cell Count 2.45 M/mm3 (3.80-5.20); White Blood Cell Count 22.24 K/mm3 (4.00-11.30)
[2022-01-06 05:44] LABS: Bun/Creatinine Ratio 7.6 (12.0-20.0); Calcium, Blood 7.2 mg/dL (8.5-10.1); Creatinine, Blood 1.44 mg/dL (0.40-1.00); Potassium, Blood 3.3 mmol/L (3.5-5.5)
--- NOTE | 2022-01-06 07:15 | NUR ---
Assumed care of pt at 0700. Report received from Noel CISNEROS. Pt A&O x 2. Answers questions, follows commands, verbalizes needs. Pleasant and cooperative with care. SpO2 90% or greater with 3 LPM NC. SR per monitor. BP stable with 5 mcg/min levophed through PICC line in ANA.
[2022-01-06 12:46] LABS: Hematocrit 22.5 % (33.0-51.0)
--- NOTE | 2022-01-06 15:30 | NUR ---
Call placed to hospitalist team. Pt has rash that was photographed on admit, that has spread to back and covers a large portion. Dr Gutierrez in to see patient. Provider discontinued linezolid.
--- NOTE | 2022-01-06 19:07 | NUR ---
SUMMARY Pt continues as ICU status. Still on levophed, currently 2 mcg/min via PICC line. No additional changes to initial assessment other than increasing rash, which hospitalist team has been notified of. Large incontinent BM this shift.
[2022-01-07 03:51] LABS: BASOPHILS ABSOLUTE AUTO 0.06 K/mm3 (0.00-0.23); BASOPHILS PERCENT AUTO 0 % (0-2); EOSINOPHILS ABSOLUTE AUTO 0.32 K/mm3 (0.00-0.68); EOSINOPHILS PERCENT AUTO 2 % (0-6); Hematocrit 22.8 % (33.0-51.0); IMMATURE GRAN ABSOLUTE AUTO 0.51 K/mm3 (0.00-0.10); IMMATURE GRAN PERCENT AUTO 3 % (0-1); LYMPHOCYTES ABSOLUTE AUTO 1.17 K/mm3 (0.84-5.20); LYMPHOCYTES PERCENT AUTO 7 % (21-46); MONOCYTES ABSOLUTE AUTO 0.97 K/mm3 (0.16-1.47); MONOCYTES PERCENT AUTO 6 % (4-13); Mean Corpuscular HGB 30.4 pg (26.0-34.0); Mean Corpuscular HGB Conc 30.7 g/dL (31.5-36.5); Mean Corpuscular Volume 99 fL (80-100); NEUTROPHILS ABSOLUTE AUTO 14.14 K/mm3 (1.96-9.15); NEUTROPHILS PERCENT AUTO 82 % (41-73); NRBC ABSOLUTE 0.03 K/mm3 (0.00-0.02); NRBC Auto 0.2 /100 WBC (0.0-0.2); Platelet Count 366 K/mm3 (150-400); RDW Coefficient Variation 15.3 % (11.7-14.2); RDW Standard Deviation 55.3 fL (35.1-46.3); White Blood Cell Count 17.17 K/mm3 (4.00-11.30)
[2022-01-07 04:11] LABS: Bun/Creatinine Ratio 6.1 (12.0-20.0); Calcium, Blood 7.4 mg/dL (8.5-10.1); Creatinine, Blood 1.31 mg/dL (0.40-1.00); Magnesium, Blood 1.6 mg/dL (1.6-2.4); Potassium, Blood 3.4 mmol/L (3.5-5.5)
--- NOTE | 2022-01-07 12:21 | NUR ---
LIANE WAS SLEEPING POST BREAKFAST, FAMILY CAME IN AND WOKE HER. SHE SAID SHE WAS HUNGRY BUT SHE IS ONLY PLAYING WITH HER LUNCH. HER COUGH CONTINUES, MOIST AND CONGESTED, SHE DENIES COUGHING ANYTHING UP AND OUT. HER NOREPINEPHRINE IS ON STANDBY AND MAP IS >65. PT IS TOLERATING WELL. P/T CAME BY TO SEE HER, SAID THEY WILL STOP BY AFTER LUNCH. ANTIBIOTICS CHANGED, SEE ORDERS.
--- NOTE | 2022-01-07 14:16 | NUR ---
WHILE THE DAUGHTER WAS VISITING, SUDHEER OUR P/T WENT IN TO WORK WITH HER. HE WAS GIVEN A LOT OF PUSHBACK FROM THE DAUGHTER IN REGARDS TO HER THERAPY. SHE DIDN'T WANT HER MOTHER DOING THE THERAPY WITH SUDHEER, DIDN'T LIKE HIS SUGGESTION ABOUT HER GOING TO A SNF FOR THERAPY TO GET HER STRENGTH BACK TO BE ABLE TO TRANSFER FROM BED TO WHEELCHAIR. HE FEELS IT WOULD BE IN HER BEST INTEREST. SEE HIS NOTES FOR FURTHER INFORMATION.
[2022-01-07 16:08] LABS: Hematocrit 23.4 % (33.0-51.0); Hemoglobin 7.1 g/dL (11.5-16.0)
--- NOTE | 2022-01-07 17:44 | NUR ---
LIANE IS VERY PICKY ABOUT HER FOOD INTAKE, I WAS ABLE TO GET HER TO EAT SEVERAL BITES OF HER MASHED POTATOES FOR DINNER. HER SON IN LAW IS HERE AND HE WAS VOICING HIS NEGATIVITY ABOUT HER EATING, AND RECITING HOW WE SHOULD BE TAKING CARE OF HER, ALL OF WHICH WE HAVE BEEN DOING. HE IS ASKING ABOUT WHO IS GOING TO BE THE NEXT SHIFT NURSE. THIS NURSE HAS BEEN GIVING POSITIVE REIN- FORCEMENT TO THE PATIENT AND SHE HAS BEEN VERY RECEPTIVE. WHEN JOKING WITH HER THAT SHE WAS PERFECT AFTER TAKING HER TEMPERATURE (IT WAS 98.6) SHE SHOOK HER HEAD, I QUESTIONED HER AND SHE POINTED INCONSPICUOUSLY AT HER SON IN LAW. UNSURE OF THE RELATIONSHIP THERE, BUT KNOW THAT LIANE HAS BEEN COMPLETELY APPROPRIATE ALL THROUGHOUT THE DAY. THIS RN'S CONCERN IS FOR THE PATIENT'S DESIRE TO GET BETTER IS BEING STIFFLED BY THE FAMILY DUE TO THEIR NEGATIVITY TO ANY OF THE WORK THAT SHE DOES.
--- NOTE | 2022-01-07 18:21 | NUR ---
1800 MIDODRINE HELD FOR ELEVATED BLOOD PRESSURE.
--- NOTE | 2022-01-07 18:37 | NUR ---
LIANE CONTINUES ON 4L/NC HUMIDIFIED. BP STABLE, ELEVATED, MIDODRINE HELD. NOT HAVING GOOD PO INTAKE, BLOOD SUGARS STABLE, NO COVERAGE NEEDED. RUIZ WITH GOOD URINE OUTPUT, PT REPOSITIONED OFTEN TO MAINTAIN SACRUM. SON REMAINS AT BEDSIDE.
[2022-01-08 04:01] LABS: BASOPHILS ABSOLUTE AUTO 0.05 K/mm3 (0.00-0.23); BASOPHILS PERCENT AUTO 0 % (0-2); EOSINOPHILS ABSOLUTE AUTO 0.27 K/mm3 (0.00-0.68); EOSINOPHILS PERCENT AUTO 2 % (0-6); Hematocrit 23.4 % (33.0-51.0); Hemoglobin 7.2 g/dL (11.5-16.0); IMMATURE GRAN ABSOLUTE AUTO 0.22 K/mm3 (0.00-0.10); IMMATURE GRAN PERCENT AUTO 2 % (0-1); LYMPHOCYTES ABSOLUTE AUTO 1.42 K/mm3 (0.84-5.20); LYMPHOCYTES PERCENT AUTO 11 % (21-46); MONOCYTES ABSOLUTE AUTO 0.68 K/mm3 (0.16-1.47); MONOCYTES PERCENT AUTO 5 % (4-13); Mean Corpuscular HGB 30.6 pg (26.0-34.0); Mean Corpuscular HGB Conc 30.8 g/dL (31.5-36.5); Mean Corpuscular Volume 100 fL (80-100); Mean Platelet Volume 9.6 fL (9.1-12.4); NEUTROPHILS ABSOLUTE AUTO 10.61 K/mm3 (1.96-9.15); NEUTROPHILS PERCENT AUTO 80 % (41-73); Platelet Count 312 K/mm3 (150-400); RDW Coefficient Variation 15.4 % (11.7-14.2); RDW Standard Deviation 54.9 fL (35.1-46.3); Red Blood Cell Count 2.35 M/mm3 (3.80-5.20); White Blood Cell Count 13.25 K/mm3 (4.00-11.30)
[2022-01-08 04:21] LABS: Anion Gap 7 mmol/L (6-16); Blood Urea Nitrogen 10 mg/dL (8-24); Bun/Creatinine Ratio 7.8 (12.0-20.0); CO2, Blood 25 mmol/L (21-32); Calcium, Blood 7.7 mg/dL (8.5-10.1); Chloride, Blood 113 mmol/L (98-108); Creatinine, Blood 1.28 mg/dL (0.40-1.00); Glomerular Filtration Rate 44 (60-); Glucose, Blood 86 mg/dL (70-99); Potassium, Blood 3.3 mmol/L (3.5-5.5); Sodium, Blood 145 mmol/L (136-145); Vancomycin, Random 20.6 ug/mL
[2022-01-08 12:19] LABS: Vancomycin, Trough 18.6 ug/mL (5.0-10.0)
--- NOTE | 2022-01-08 14:37 | NUR ---
PT ARRIVED TO THE MEDICAL FLOOR VIA BED FROM THE ICU 12. PT IS A/OX3 PLEASANT AND COOPERATIVE, VERY [place]. PT ORIENTED TO THE CALL SYTEM. CALL LIGHT IN REACH. PTS SON IS AT THE BEDSIDE
--- NOTE | 2022-01-08 19:36 | NUR ---
PT IS A/OX3, VERY [place]. PT IS BED REST AT THIS TIME DUE TO LEFT BKA. PT IS ON 2L/MIN O2 VIA NC AT THIS TIME. PT APPEARS TO BE BREATHING EASILY AT REST AT THIS TIME. PT HAS A MOIST COUGH. PT MEDICATED FOR CHRONIC PAIN X1 ON THE MEDICAL FLOOR SO FAR. CALL LGT IN REACH, WILL COTINUE TO MONITOR AND ASSESS FOR CHANGES
[2022-01-09 05:51] LABS: BASOPHILS ABSOLUTE AUTO 0.04 K/mm3 (0.00-0.23); BASOPHILS PERCENT AUTO 0 % (0-2); EOSINOPHILS ABSOLUTE AUTO 0.16 K/mm3 (0.00-0.68); EOSINOPHILS PERCENT AUTO 1 % (0-6); Hematocrit 23.2 % (33.0-51.0); IMMATURE GRAN ABSOLUTE AUTO 0.19 K/mm3 (0.00-0.10); IMMATURE GRAN PERCENT AUTO 2 % (0-1); LYMPHOCYTES ABSOLUTE AUTO 1.15 K/mm3 (0.84-5.20); LYMPHOCYTES PERCENT AUTO 10 % (21-46); MONOCYTES ABSOLUTE AUTO 0.64 K/mm3 (0.16-1.47); MONOCYTES PERCENT AUTO 6 % (4-13); Mean Corpuscular HGB 30.4 pg (26.0-34.0); Mean Corpuscular HGB Conc 30.2 g/dL (31.5-36.5); Mean Corpuscular Volume 101 fL (80-100); Mean Platelet Volume 9.6 fL (9.1-12.4); NEUTROPHILS PERCENT AUTO 80 % (41-73); Platelet Count 278 K/mm3 (150-400); RDW Coefficient Variation 15.5 % (11.7-14.2); White Blood Cell Count 11.08 K/mm3 (4.00-11.30)
--- NOTE | 2022-01-09 06:03 | NUR ---
WOUND ON COCCYX CLEANED AND DRESSED WTIH MEPIPLEX DRESSING IN MARKETING PROJECT SPECIALIST. PATIENT HAS RUIZ CATHETER IN PLACE BUT WAS INCONTINENT OF STOOL. TURNS Q 2 HOURS AFTER APPLYING MEPIPLEX DRESSING TO COCCYX. PAIN WELL MANAGED ON CURRENT REGIMEN PER EMR. PATIENT IS VERY [place] AND HEARS MUCH BETTER IN HER RIGHT EAR THAN LEFT. CALL LIGHT LEFT WITHIN REACH.
[2022-01-09 06:18] LABS: Anion Gap 7 mmol/L (6-16); Blood Urea Nitrogen 14 mg/dL (8-24); Bun/Creatinine Ratio 10.8 (12.0-20.0); CO2, Blood 24 mmol/L (21-32); Calcium, Blood 7.4 mg/dL (8.5-10.1); Chloride, Blood 113 mmol/L (98-108); Glomerular Filtration Rate 43 (60-); Glucose, Blood 90 mg/dL (70-99); Potassium, Blood 3.1 mmol/L (3.5-5.5); Sodium, Blood 144 mmol/L (136-145); Vancomycin, Random 24.6 ug/mL
--- NOTE | 2022-01-09 16:42 | NUR ---
PT IS A/OX3, PLEASANT AND COOPERATIVE, VERY [place]. THE PT HAS BEEN BEDREST TODAY PT HAS BEEN REPOSITIONED T/O THE DAY. THE PT WAS GIVEN A BED BATH THIS AFTERNOON. AND HYDROCORTISONE CREAMM APPLIED TO THE PT RASH. PT PT WAS MEDICATED FOR CHRONIC PAIN. PT APPEARS TO BE BREATHING EASILY OT REST ON O2. CALL LIGHT IN REACH. THE PTS SON IS AT THE BEDSIDE AT THIS TIME
--- NOTE | 2022-01-09 17:53 | NUR ---
Pt is returned to [facility] with worsening pneumonia. She was released from [facility] back to [facility] last week, daughter was not informed. Daughter believes discharge happened too soon, important she be included in discharge planning. assessment services manager aware. I mentioned hospice tonight as a possibility, but daughter is adamant her mom is "not ready". She is signing up for AIM though (outpatient with [facility]).
[2022-01-10 05:56] LABS: Vancomycin, Random 17.7 ug/mL
--- NOTE | 2022-01-10 06:24 | NUR ---
SHIFT MOSTLY UNREMARKABLE. PATIENT CONTINUES TO TAKE MEDICATIONS WHOLE IN APPLESAUCE WITHOUT DIFFICULTY. SIPPED WATER FROM CUP WITHOUT DIFFICULTY. PAIN WELL MANAGED ON CURRENT REGIMEN. TURNS Q 2 HOURS. CALL LIGHT LEFT WITHIN REACH.
[2022-01-10 09:34] LABS: Hematocrit 23.7 % (33.0-51.0); Hemoglobin 7.3 g/dL (11.5-16.0)
[2022-01-10 10:08] LABS: Calcium, Blood 7.6 mg/dL (8.5-10.1); Creatinine, Blood 1.27 mg/dL (0.40-1.00); Potassium, Blood 3.6 mmol/L (3.5-5.5)
--- NOTE | 2022-01-10 16:42 | NUR ---
PT IS A/OX3, VERY [place]. PLEASANT AND COOPERATIVE. THE PT HAS BEEN BEDREST SO FAR THIS HOSPITAL STAY. PT WAS TURNED SIDE TO SIDE T/O THE DAY. THE PT APPEARS TO BE BREATHING EASILY ON O2 @ 2L/MIN AT REST. THE PT WAS MEDICATED FOR PAIN X1 SO FAR THIS SHIFT. THE PT WAS GIVEN A BED BATH AND A CHLORAHEXIDEAN BATH, AFTERWARDS HYDROCORTISON OINTMENT WAS APPLIED TO THE PTS RASH. PTS FAMILY IS AT THE BEDSIDE AT THIS TIME. CALL LIGHT IN REACH. WILL CONTINUE TO MONITOR AND ASSESS FOR CHANGES
[2022-01-11 05:52] LABS: Vancomycin, Random 24.7 ug/mL
--- NOTE | 2022-01-11 07:46 | NUR ---
SHIFT SUMMARY ALERT AND ORIENTED X 1-2. VSS. [place]. REFUSED PAIN MED AND RT TREATMENT LAST NIGHT. PT REMOVED TELE LEADS X 2 THIS SHIFT. PT'S GRANDSON CAME TO VISIT HER LAST NIGHT. PT'S DAUGHTER CALLED THIS AM AND INFORMED HER OF HER MOM'S REFUSAL TO TAKE PAIN MEDS AND RT TREATMENT. BED ALARM ON.
--- NOTE | 2022-01-11 18:27 | NUR ---
SHIFT SUMMARY: PT A/O X 3, BEDREST. PLEASANT AND COOPERATIVE THROUGHOUT THE DAY. CURRENTLY ON 3 LPM VIA NC. PT EATING WELL AT MEALTIMES. RUIZ CATH PATENT AND DRAINING CLEAR LIGHT YELLOW URINE. BS WELL MANAGED TODAY. HELD GLARGINE DUE TO BS BELOW 100. PT BP REMAINS LOW BUT ASYMPTOMATIC. PT C/O LEFT LEG PAIN AND GIVEN OXYCODONE TODAY. PT PAIN MANAGED ON CURRENT PAIN REGIMEN.
[2022-01-12 05:33] LABS: Vancomycin, Random 15.6 ug/mL
--- NOTE | 2022-01-12 07:41 | NUR ---
SHIFT SUMMARY A&O X 2-3. VSS. PLEASANT AND COOPERATIVE WITH CARE. SON-IN-LAW AT BEDSIDE BEGINNING OF SHIFT AND WAS UPDATED ON PT'S STATUS. PT C/O PAIN TO LEFT ARM AND TOOK HER PAIN MED THIS EVENING. PT SLEPT OFF AND ON BETWEEN CARE. RUIZ CATHETER PATENT AND DRAINING CLEAR, YELLOW, URINE. BED ALARM ON. WILL CONTINUE TO MONITOR.
[2022-01-12] MEDS ORDERED: HYDROCORTISON28.4 G4 TOP (12:53)
[2022-01-12] MEDS ORDERED: MIDO5 PO (12:53)
[2022-01-12] MEDS ORDERED: POTA10T PO (12:54)
[2022-01-12] MEDS ORDERED: PRED20 PO (12:54)
[2022-01-12] MEDS ORDERED: SULFAMETHOXAZO1 EAC1 PO (12:54)
--- NOTE | 2022-01-12 16:43 | NUR ---
DISCHARGE SUMMARY: PT DISCHARGED BACK TO [facility] VIA TRANSPORT. REPORT GIVEN TO DUKE AT [facility]. PT BELONGINGS SENT WITH PT.
== END 2022-01-12 16:18 | disposition home health service (06) | DRG 871 ==
LOC: ER 10:29 → PCU 15:08 → MEDS 15:08 → PCU 16:04 → ICUW 01-05 01:30 → MEDS 01-08 14:37
PROVIDERS: Emergency Medicine; Family Medicine; Hospitalist; Nurse Practitioner Acute Care; Student in an Organized Health Care Education/Training Program; ADMIT Internal Medicine
PROC: 3E03329 Introduction of Other Anti-infective into Peripheral Vein, Percutaneous Approach (ICD-10-PCS; 2022-01-04)
PROC: 3E033XZ Introduction of Vasopressor into Peripheral Vein, Percutaneous Approach (ICD-10-PCS; principal; 2022-01-05)
DX: A41.02 Sepsis due to Methicillin resistant Staphylococcus aureus (principal); J15.212 Pneumonia due to Methicillin resistant Staphylococcus aureus; R65.21 Severe sepsis with septic shock; J96.01 Acute respiratory failure with hypoxia; T83.511A Infection and inflammatory reaction due to indwelling urethral catheter, initial encounter; N39.0 Urinary tract infection, site not specified; N17.9 Acute kidney failure, unspecified; J44.0 Chronic obstructive pulmonary disease with (acute) lower respiratory infection; Y95 Nosocomial condition; I10 Essential (primary) hypertension; Z66 Do not resuscitate; I25.10 Atherosclerotic heart disease of native coronary artery without angina pectoris; K21.9 Gastro-esophageal reflux disease without esophagitis; L29.9 Pruritus, unspecified; E87.6 Hypokalemia; E83.42 Hypomagnesemia; L74.0 Miliaria rubra; L25.9 Unspecified contact dermatitis, unspecified cause; Z20.822 Contact with and (suspected) exposure to COVID-19; E11.51 Type 2 diabetes mellitus with diabetic peripheral angiopathy without gangrene; E78.5 Hyperlipidemia, unspecified; E66.01 Morbid (severe) obesity due to excess calories; D63.8 Anemia in other chronic diseases classified elsewhere; E11.42 Type 2 diabetes mellitus with diabetic polyneuropathy; M79.7 Fibromyalgia; Z86.19 Personal history of other infectious and parasitic diseases; Z95.5 Presence of coronary angioplasty implant and graft; Z88.5 Allergy status to narcotic agent; Z88.8 Allergy status to other drugs, medicaments and biological substances; Z86.73 Personal history of transient ischemic attack (TIA), and cerebral infarction without residual deficits; Z79.899 Other long term (current) drug therapy; Z79.52 Long term (current) use of systemic steroids; Z79.51 Long term (current) use of inhaled steroids; Z79.01 Long term (current) use of anticoagulants; Z79.02 Long term (current) use of antithrombotics/antiplatelets; Z79.4 Long term (current) use of insulin; Z79.2 Long term (current) use of antibiotics; Z79.891 Long term (current) use of opiate analgesic; I25.2 Old myocardial infarction; Z90.710 Acquired absence of both cervix and uterus; Z90.721 Acquired absence of ovaries, unilateral; Z89.512 Acquired absence of left leg below knee; Z90.49 Acquired absence of other specified parts of digestive tract; Z95.828 Presence of other vascular implants and grafts; Z98.890 Other specified postprocedural states; Z68.23 Body mass index [BMI] 23.0-23.9, adult; Y84.6 Urinary catheterization as the cause of abnormal reaction of the patient, or of later complication, without mention of misadventure at the time of the procedure
CPT/HCPCS: 0241U; 36415; 36569; 51702; 71045; 76882; 80048; 80053; 80202; 81001; 82533; 82947; 83605; 83735; 83880; 84145; 84484; 85014; 85018; 85025; 87040; 87086; 92526; 92610; 93005; 93010; 94640; 94664; 94760; 94762; 96365; 97110; 97161; 97530; 99285-25; A9270; C1751; J0692; J1815; J2020; J2405; J2543; J3370; J3475; J7030; J7050; J7060

== ENCOUNTER 2022-01-18 22:44 | Inpatient (IN) | payer OTHER ==
[~2022-01-18] VITALS: Ht 167.6 cm; Wt 66.0 kg
[~2022-01-18 22:44] MED LIST changes: +HYDROCORTISON28.4 G4 TOP; +MIDO5 PO; +POTA10T PO; +PRED20 PO; +SULFAMETHOXAZO1 EAC1 PO
[2022-01-18 23:32] LABS: BASOPHILS ABSOLUTE AUTO 0.05 K/mm3 (0.00-0.23); BASOPHILS PERCENT AUTO 0 % (0-2); EOSINOPHILS PERCENT AUTO 1 % (0-6); Hematocrit 26.1 % (33.0-51.0); IMMATURE GRAN ABSOLUTE AUTO 0.18 K/mm3 (0.00-0.10); IMMATURE GRAN PERCENT AUTO 1 % (0-1); LYMPHOCYTES ABSOLUTE AUTO 1.72 K/mm3 (0.84-5.20); LYMPHOCYTES PERCENT AUTO 10 % (21-46); MONOCYTES ABSOLUTE AUTO 0.63 K/mm3 (0.16-1.47); MONOCYTES PERCENT AUTO 4 % (4-13); Mean Corpuscular HGB 31.5 pg (26.0-34.0); Mean Corpuscular HGB Conc 30.7 g/dL (31.5-36.5); Mean Corpuscular Volume 103 fL (80-100); Mean Platelet Volume 10.4 fL (9.1-12.4); NEUTROPHILS ABSOLUTE AUTO 14.27 K/mm3 (1.96-9.15); NEUTROPHILS PERCENT AUTO 84 % (41-73); NRBC ABSOLUTE 0.02 K/mm3 (0.00-0.02); NRBC Auto 0.1 /100 WBC (0.0-0.2); Platelet Count 271 K/mm3 (150-400); RDW Coefficient Variation 17.6 % (11.7-14.2); RDW Standard Deviation 65.8 fL (35.1-46.3); Red Blood Cell Count 2.54 M/mm3 (3.80-5.20); White Blood Cell Count 17.05 K/mm3 (4.00-11.30)
[2022-01-18 23:50] LABS: Albumin/Globulin Ratio 0.8 (0.8-1.8); Bilirubin, Total 0.5 mg/dL (0.1-1.0); Bun/Creatinine Ratio 13.8 (12.0-20.0); Calcium, Blood 9.2 mg/dL (8.5-10.1); Creatinine, Blood 0.94 mg/dL (0.40-1.00); Globulin, Blood 3.7 g/dL (2.2-4.0); Total Protein, Blood 6.7 g/dL (6.4-8.2)
[2022-01-19 02:10] LABS: Base Excess Venous 9.1 mmol/L; Bicarbonate Venous 32.1 mmol/L (24.0-30.0); PCO2 Venous 43.7 mmHg (38-42); pH Blood Venous 7.48 (7.34-7.37)
[2022-01-19 03:36] LABS: Influenza A, PCR NEGATIVE (NEGATIVE); Influenza B, PCR NEGATIVE (NEGATIVE); Resp Syncytial Virus, PCR NEGATIVE (NEGATIVE); SARS-Cov-2 (COVID-19) PCR, MMC NEGATIVE (NEGATIVE)
[2022-01-19 06:46] LABS: Source, Urine Foley catheter
[2022-01-19 07:13] LABS: Bilirubin, Urine Neg (Neg); Blood, Urine 3+ (Neg); Glucose Qualitative, Urine 4+ (Neg); Ketones, Urine 1+ (Neg); Leukocyte Esterase, Urine 3+ (Neg); Nitrite, Urine Neg (Neg); Protein, Urine 2+ (Neg); Urobilinogen, Urine NORM (Normal)
[2022-01-19 07:22] LABS: Appearance, Urine Hazy (Clear); Color, Urine Yellow (P-Yellow)
[2022-01-19 07:23] LABS: Bacteria Few /hpf; Squamous Epithelial Cells Not Seen /hpf (Few); White Blood Cells, Urine 50-100 /hpf (0-5); Yeast/Fungi Urine Many /hpf
[2022-01-19] MEDS ORDERED: ATOR80 PO (08:13)
[2022-01-19] MEDS ORDERED: Amlodipine Bes2.5 MG PO (08:13)
[2022-01-19] MEDS ORDERED: CLOP75 PO (08:14)
[2022-01-19] MEDS ORDERED: GABA300 PO (08:14)
[2022-01-19] MEDS ORDERED: Flovent Disku100 MCG (08:14)
[2022-01-19] MEDS ORDERED: OXYB5ER PO (08:15)
[2022-01-19] MEDS ORDERED: PANT40 PO (08:15)
[2022-01-19] MEDS ORDERED: POTCHL20ER PO (08:15)
[2022-01-19] MEDS ORDERED: MIDO5 PO (08:15)
[2022-01-19] MEDS ORDERED: XARELTO20 MG PO (08:16)
[2022-01-19] MEDS ORDERED: OXYC5 PO (08:16)
[2022-01-19 08:57] LABS: BASOPHILS ABSOLUTE AUTO 0.01 K/mm3 (0.00-0.23); BASOPHILS PERCENT AUTO 0 % (0-2); EOSINOPHILS PERCENT AUTO 0 % (0-6); Hematocrit 23.2 % (33.0-51.0); Hemoglobin 7.3 g/dL (11.5-16.0); IMMATURE GRAN ABSOLUTE AUTO 0.18 K/mm3 (0.00-0.10); IMMATURE GRAN PERCENT AUTO 1 % (0-1); LYMPHOCYTES ABSOLUTE AUTO 0.23 K/mm3 (0.84-5.20); LYMPHOCYTES PERCENT AUTO 2 % (21-46); MONOCYTES ABSOLUTE AUTO 0.05 K/mm3 (0.16-1.47); MONOCYTES PERCENT AUTO 0 % (4-13); Mean Corpuscular HGB 31.6 pg (26.0-34.0); Mean Corpuscular HGB Conc 31.5 g/dL (31.5-36.5); Mean Corpuscular Volume 100 fL (80-100); Mean Platelet Volume 10.7 fL (9.1-12.4); NEUTROPHILS ABSOLUTE AUTO 13.02 K/mm3 (1.96-9.15); NEUTROPHILS PERCENT AUTO 97 % (41-73); Platelet Count 221 K/mm3 (150-400); RDW Coefficient Variation 17.3 % (11.7-14.2); Red Blood Cell Count 2.31 M/mm3 (3.80-5.20); White Blood Cell Count 13.49 K/mm3 (4.00-11.30)
[2022-01-19 09:46] LABS: Albumin, Blood 2.9 g/dL (3.4-5.0); Anion Gap 8 mmol/L (6-16); Blood Urea Nitrogen 13 mg/dL (8-24); Bun/Creatinine Ratio 15.4 (12.0-20.0); CO2, Blood 29 mmol/L (21-32); Calcium, Blood 8.3 mg/dL (8.5-10.1); Chloride, Blood 103 mmol/L (98-108); Creatinine, Blood 0.84 mg/dL (0.40-1.00); Glomerular Filtration Rate 73 (60-); Glucose, Blood 292 mg/dL (70-99); Potassium, Blood 3.9 mmol/L (3.5-5.5); Sodium, Blood 140 mmol/L (136-145)
[2022-01-19] MEDS ORDERED: VITAMIN D31000 UNI1 PO (16:11)
--- NOTE | 2022-01-19 19:56 | NUR ---
SHIFT SUMMARY: ASSUMED CARE OF PT UPON HER ARRIVAL FROM ED AT 1230, IS FAMILIAR TO ME FROM PREVIOUS ADMIT. A&O X 3, BUT CONFUSED AT TIMES, SEVERLY POINT LAY [place]. ON O2 @ 3 L/MIN NC, WHICH IS HER BASELINE. LUNGS WITH RHONCHI AND CRACKLES. TELEMETRY PLACED. ON DROPLET ISOLATION FOR MRSA SPUTUM. HAS CHRONIC PAIN FROM AMPUTATION AND FIBROMYALGIA. CHRONIC RUIZ CATHETER CHANGED IN ED PRIOR TO ARRIVAL ON MEDICAL UNIT. TOLERATED PO INTAKE. INCONTINENT OF BOWEL.
--- NOTE | 2022-01-20 06:01 | NUR ---
SHIFT SUMMARY: PATIENT IS VERY [place]. REPORTS CRONIC LEFT LEG PAIN 8/, OXYCODONE 5 MG WITH TYLENOL WAS GIVEN, WITH GOOD EFFECT BUT DID NOT LAST 6H. DAUGHTER REPORTED THAT PATIENT TAKES 7.5 MG OF OXYCODONE WITH 650MG OF TYLENOL, Q6H PRN AT [place]. DR MENDES WAS NOTIFIED AND ORDER WAS CHANGED TO OXYCODONE 7.5MG Q6H PRN. PHOTO'S OF STAGE 1 PRESSURE ULCER ARE TAKEN AND IN THE CHART. RUIZ IS PATIENT FOR A PALE YELLOW URINE.
[2022-01-20 08:30] LABS: BASOPHILS ABSOLUTE AUTO 0.01 K/mm3 (0.00-0.23); BASOPHILS PERCENT AUTO 0 % (0-2); EOSINOPHILS PERCENT AUTO 0 % (0-6); Hematocrit 22.4 % (33.0-51.0); Hemoglobin 7.2 g/dL (11.5-16.0); IMMATURE GRAN PERCENT AUTO 1 % (0-1); LYMPHOCYTES ABSOLUTE AUTO 0.34 K/mm3 (0.84-5.20); LYMPHOCYTES PERCENT AUTO 4 % (21-46); MONOCYTES ABSOLUTE AUTO 0.16 K/mm3 (0.16-1.47); MONOCYTES PERCENT AUTO 2 % (4-13); Mean Corpuscular HGB 31.7 pg (26.0-34.0); Mean Corpuscular HGB Conc 32.1 g/dL (31.5-36.5); Mean Corpuscular Volume 99 fL (80-100); Mean Platelet Volume 10.5 fL (9.1-12.4); NEUTROPHILS ABSOLUTE AUTO 8.72 K/mm3 (1.96-9.15); NEUTROPHILS PERCENT AUTO 94 % (41-73); NRBC ABSOLUTE 0.02 K/mm3 (0.00-0.02); NRBC Auto 0.2 /100 WBC (0.0-0.2); Platelet Count 224 K/mm3 (150-400); RDW Coefficient Variation 17.3 % (11.7-14.2); RDW Standard Deviation 61.5 fL (35.1-46.3); Red Blood Cell Count 2.27 M/mm3 (3.80-5.20); White Blood Cell Count 9.33 K/mm3 (4.00-11.30)
[2022-01-20 08:47] LABS: Anion Gap 11 mmol/L (6-16); Blood Urea Nitrogen 12 mg/dL (8-24); Bun/Creatinine Ratio 13.6 (12.0-20.0); CO2, Blood 30 mmol/L (21-32); Calcium, Blood 8.7 mg/dL (8.5-10.1); Chloride, Blood 96 mmol/L (98-108); Creatinine, Blood 0.88 mg/dL (0.40-1.00); Glomerular Filtration Rate 69 (60-); Glucose, Blood 282 mg/dL (70-99); Phosphorus, Blood 2.9 mg/dL (2.5-4.9); Potassium, Blood 3.2 mmol/L (3.5-5.5); Sodium, Blood 137 mmol/L (136-145)
--- NOTE | 2022-01-20 18:02 | NUR ---
SHIFT SUMMARY- PT A@O X4. IV LEAKING, REPLACED. [place] IN [place], COMPLIANT WITH ALL CARE. PT APPEARS YEASTY IN FOLDS, CLEANED AND APLIED MOISTURE BARRIER. METPOLIX OVER SACRAL AREA REPLACED. RUIZ INTACT, WITH YELLOW DRAINING URINE. FAMILY AT BEDSIDE. BED ALARM ON, SIDE RAILS UP. WILL CONTINUE TO MONITOR.
[2022-01-21 05:18] LABS: BASOPHILS ABSOLUTE AUTO 0.01 K/mm3 (0.00-0.23); BASOPHILS PERCENT AUTO 0 % (0-2); EOSINOPHILS ABSOLUTE AUTO 0.01 K/mm3 (0.00-0.68); EOSINOPHILS PERCENT AUTO 0 % (0-6); Hematocrit 23.1 % (33.0-51.0); Hemoglobin 7.4 g/dL (11.5-16.0); IMMATURE GRAN ABSOLUTE AUTO 0.13 K/mm3 (0.00-0.10); IMMATURE GRAN PERCENT AUTO 1 % (0-1); LYMPHOCYTES ABSOLUTE AUTO 0.59 K/mm3 (0.84-5.20); LYMPHOCYTES PERCENT AUTO 4 % (21-46); MONOCYTES ABSOLUTE AUTO 0.65 K/mm3 (0.16-1.47); MONOCYTES PERCENT AUTO 4 % (4-13); Mean Corpuscular HGB 31.8 pg (26.0-34.0); Mean Corpuscular Volume 99 fL (80-100); Mean Platelet Volume 10.9 fL (9.1-12.4); NEUTROPHILS ABSOLUTE AUTO 13.22 K/mm3 (1.96-9.15); NEUTROPHILS PERCENT AUTO 91 % (41-73); Platelet Count 240 K/mm3 (150-400); RDW Coefficient Variation 18.1 % (11.7-14.2); RDW Standard Deviation 64.8 fL (35.1-46.3); Red Blood Cell Count 2.33 M/mm3 (3.80-5.20); White Blood Cell Count 14.61 K/mm3 (4.00-11.30)
[2022-01-21 05:42] LABS: Anion Gap 7 mmol/L (6-16); Blood Urea Nitrogen 15 mg/dL (8-24); Bun/Creatinine Ratio 15.7 (12.0-20.0); CO2, Blood 33 mmol/L (21-32); Calcium, Blood 8.8 mg/dL (8.5-10.1); Chloride, Blood 97 mmol/L (98-108); Creatinine, Blood 0.96 mg/dL (0.40-1.00); Glomerular Filtration Rate 62 (60-); Glucose, Blood 231 mg/dL (70-99); Phosphorus, Blood 2.3 mg/dL (2.5-4.9); Potassium, Blood 3.9 mmol/L (3.5-5.5); Sodium, Blood 137 mmol/L (136-145)
--- NOTE | 2022-01-21 06:36 | NUR ---
A/OX2-3; SELF, PLACE AND DATE. FORGETFUL AT TIMES. VERY [place] LEFT BKA. 1-2X ASSIST TO CHANGE /REPOSITION IN BED. C/O PAIN AT 6/10 TO L BKA STUMP; PRN TYLENOL GIVEN 2X THIS SHIFT; HELPUL PER PATIENT. SLEEP PROMOTED. BED ALARM SET, CALL LIGHT IN REACH; ENCOURAGED TO MAKE NEEDS KNOWN.
--- NOTE | 2022-01-21 17:35 | NUR ---
SHIFT SUMMARY- PT COOPERATIVE. NO C/O CHEST PAIN. AMBULATED AROUND UNIT AND TO BATHROOM ARCELIA FUNEZ FWW. STEADY ON FEET. NO TELE ABNORMALITIES REPORTED. PT WITH PACO AT BEDSIDE THROUGHOUT SHIFT. D/C PT TO RETURN TO [facility], DRIVEN BY FRIEND. EDUCATION/PAPERWORK GIVEN. ALL BELONINGS WITH PT. WHEELCHAIR TO [facility] WITH BELONGINGS.
--- NOTE | 2022-01-21 17:42 | NUR ---
SHIFT SUMMARY- AMMENDED PT VSS. NO ACUTE CHANGES. RUIZ D/C, TOLERATING WELL. APPETITE OK. SKIN SENITIVE AFTER BATH, WILL CONTINUE TO MONITOR. CHANGED METOPLIX AT SACRAL, NO ACUTE CHANGES TO SACRAL BREAKDOWN. IV PATENT. [place]. CALL LIGHT IN REACH, SIDE RAILS UP. C/O PAIN MEDICATED PER EMAR. ROSALIO CONTINUE TO MONITOR.
--- NOTE | 2022-01-22 06:39 | NUR ---
A/OX2-3; SELF AND PLACE. FORGETFUL. CALM AND COOPERATIVE. TELE: SR WITH HR IN 70's. C/O BACK PAIN; PRN TYLENOL HELPFUL PER PATIENT. INCONTINENT; 2X ASSIST TO TURN/CHANGE. C/O FEELING NAUSEATED; PRN ZOFRAN GIVEN.; MINIMALLY EFFECTIVE PER PATIENT SLEEP PROMOTED. BED ALARM SET. CALL LIGHT IN REACH; ENCOURAGED TO MAKE NEEDS KNOWN.
[2022-01-22 09:19] LABS: Hematocrit 25.8 % (33.0-51.0); Hemoglobin 8.1 g/dL (11.5-16.0); Mean Corpuscular HGB 31.9 pg (26.0-34.0); Mean Corpuscular HGB Conc 31.4 g/dL (31.5-36.5); Mean Corpuscular Volume 102 fL (80-100); Mean Platelet Volume 10.5 fL (9.1-12.4); Platelet Count 176 K/mm3 (150-400); RDW Coefficient Variation 17.8 % (11.7-14.2); RDW Standard Deviation 66.4 fL (35.1-46.3); Red Blood Cell Count 2.54 M/mm3 (3.80-5.20); White Blood Cell Count 14.14 K/mm3 (4.00-11.30)
[2022-01-22 09:44] LABS: Albumin, Blood 3.2 g/dL (3.4-5.0); Anion Gap 6 mmol/L (6-16); Blood Urea Nitrogen 16 mg/dL (8-24); Bun/Creatinine Ratio 16.4 (12.0-20.0); CO2, Blood 31 mmol/L (21-32); Calcium, Blood 7.6 mg/dL (8.5-10.1); Chloride, Blood 100 mmol/L (98-108); Creatinine, Blood 0.98 mg/dL (0.40-1.00); Glomerular Filtration Rate 61 (60-); Glucose, Blood 220 mg/dL (70-99); Phosphorus, Blood 3.9 mg/dL (2.5-4.9); Potassium, Blood 4.1 mmol/L (3.5-5.5); Sodium, Blood 137 mmol/L (136-145)
--- NOTE | 2022-01-22 14:14 | NUR ---
Placed a call to pt's daughter Catia. We discussed pt's overall condition, and she does agree that pt is ready for hospice. She states [facility] will be transitioning the pt to hospice when she discharges back to [facility]. She states she already discussed this with Sharri. Will notify Neurophysiological Technician, Hospitalist.
--- NOTE | 2022-01-22 17:34 | NUR ---
SHIFT SUMMARY: PATIENT ALERT AND ORIENTED X2-3. PT WAS IN A 9/10 PAIN IN HER LEFT LEG. GAVE HER TYLENOL WHICH SHE STATED "HARDLY HELPED." GAVE HER A DOSE OF PRN OXYCODONE AND HER PAIN DROPPED TO A 6/10. PT HAD SOME RED AREAS IN HER GROIN AND UNDER HER LEFT BREAST. NYSTATIN CREAM APPLIED. PT WAS ABLE TO TOLERATE GETTING UP TO HER CHAIR WITH A LIFT FOR BREAKFAST AND DINNER. SPUTUM SAMPLE SENT TO LAB. CALL LIGHT IN REACH. BED IN LOWEST POSITION. WILL CONTINUE TO MONITOR.
--- NOTE | 2022-01-23 07:10 | NUR ---
A/OX3; SELF, PLACE, AND DATE. FORGETFUL. [place]. VERY NAUSEATED T/O SHIFT WITH 2 EPISODES OF UNMEASURED EMESIS; ZOFRAN INNEFECTIVE. REGLAN ORDERED AND GIVEN; MINIMALLY EFFECTIVE PER PATIENT. QUICK UPDATE GIVEN TO DAUGHTER OVER THE PHONE. 2X ASSIST, Q2 TURN, R HEEL AND LEFT STUMP FLOATED ON PILLOWS T/O SHIFT. TRANSFERS VIA LIFT TO CHAIR. COCCYX EXCORIATION GENTLY CLEANED WITH WARM WATER AND DRSG CHANGED. SLEEP PROMOTED. BED ALARM SET. CALL LIGHT IN REACH; ENCOURAGED TO MAKE NEEDS KNOWN.
[2022-01-23 10:09] LABS: Hematocrit 26.4 % (33.0-51.0); Hemoglobin 8.1 g/dL (11.5-16.0); Mean Corpuscular HGB 31.3 pg (26.0-34.0); Mean Corpuscular HGB Conc 30.7 g/dL (31.5-36.5); Mean Corpuscular Volume 102 fL (80-100); Mean Platelet Volume 11.2 fL (9.1-12.4); Platelet Count 166 K/mm3 (150-400); RDW Coefficient Variation 17.5 % (11.7-14.2); Red Blood Cell Count 2.59 M/mm3 (3.80-5.20); White Blood Cell Count 13.65 K/mm3 (4.00-11.30)
[2022-01-23 10:19] LABS: Albumin, Blood 3.1 g/dL (3.4-5.0); Anion Gap 7 mmol/L (6-16); Blood Urea Nitrogen 14 mg/dL (8-24); Bun/Creatinine Ratio 13.6 (12.0-20.0); CO2, Blood 32 mmol/L (21-32); Calcium, Blood 7.5 mg/dL (8.5-10.1); Chloride, Blood 99 mmol/L (98-108); Creatinine, Blood 1.03 mg/dL (0.40-1.00); Glomerular Filtration Rate 57 (60-); Glucose, Blood 205 mg/dL (70-99); Phosphorus, Blood 3.3 mg/dL (2.5-4.9); Potassium, Blood 3.8 mmol/L (3.5-5.5); Sodium, Blood 138 mmol/L (136-145)
--- NOTE | 2022-01-23 17:47 | NUR ---
SHIFT SUMMARY: PT ALERT AND ORIENTED X3. PT HAD NAUSEA THIS MORNING. GAVE HER A DOSE OF IV REGLAN AND HAS NOT C/O NAUSEA SINCE. PT'S IV WENT BAD AND ATTEMPTED TO PLACE NEW IV. PT C/O A 6/10 PAIN IN HER LEFT LEG. MEDICATED HER WITH PRN OXYCODONE WHICH SHE STATED HELPED. DR. MONDRAGON EXPLAINED TO HER ABOUT BEING D/C ON WITH HOSPICE TOMORROW. TELE D/C'D. LEFT LEG/STUMP FLOATED ON PILLOW. SACRAL MEPILEX IN PLACE. NYSTATIN CREAM APPLIED TO GROIN AND UNDER LEFT BREAST FOR REDNESS. CALL LIGHT IN REACH. BED IN LOWEST POSITION.
--- NOTE | 2022-01-24 06:03 | NUR ---
A/OX3; SELF, PLACE, AND DATE. FORGETFUL. [place]. VERY NAUSEATED T/O SHIFT WITH 1 EPISODE OF UNMEASURED EMESIS. PO REGLAN ORDERED AND GIVEN; MINIMALLY EFFECTIVE PER PATIENT. QUICK UPDATE GIVEN TO DAUGHTER OVER THE PHONE. LUNGS COARSE /WHEEZY, REQUESTED RT TREATMENTS 2X TONIGHT. 2X ASSIST, Q2 TURN, R HEEL AND LEFT STUMP FLOATED ON PILLOWS T/O SHIFT. TRANSFERS VIA LIFT TO CHAIR. COCCYX EXCORIATION GENTLY CLEANED WITH WARM WATER AND DRSG CHANGED. SLEEP PROMOTED. BED ALARM SET. CALL LIGHT IN REACH; ENCOURAGED TO MAKE NEEDS KNOWN.
--- NOTE | 2022-01-24 17:32 | NUR ---
SHIFT SUMMARY PT LUNGS SOUNDING MORE MOIST THE DAY PROGRESSES. PT STATES THAT "SHE CAN'T BREATHE" PT STATING IN THE 90S ON 4L O2 VIA NC. PT NOT UNDERSTANDING THAT SHE HAS O2 ON HER FACE. BREATHING TREAMENTS SO NOT HELP. DR. MAXWELL NOTIFIED THAT PT SEEMS TO BE SOUNDING AND FEELING WORSE THAN THIS AM. PT NOT ABLE TO COUGH UP MUCH SHE DID EARLIER IN THE SHIFT. ORDER FOR CHEST PHYSIOTHERAPY ORDERED AND RELAYED TO RT. TO BE DONE BID. NO OTHER ACUTE CHANGES IN ASSESSMENT AT THIS TIME. SEE EMAR FOR PAIN SENIOR CARE MANAGER. BP SOFT, DR. MONDRAGON AWARE. MIDODRINE GIVEN ORDERED.
--- NOTE | 2022-01-25 04:57 | NUR ---
SHIFT SUMMARY ALERT AND ORIENT X 3-4. VSS. SOFT BP IN THE MID 80S. C/O LOWER BACK PAIN, GIVEN PRN TYLENOL WITH MINIMAL RESULT. [place]. USES MECHANICAL LIFT TO CHAIR DURING DAYSHIFT. HAS MOIST COUGH. CHEST PHYSIOTHERAPY SCHEDULED WITH RT. DOES NOT USE CALL LIGHT. PT CALLS OUT FOR ASSISTANCE. BED ALARM ON. WILL CONTINUE WITH PLAN OF CARE.
[2022-01-25 13:41] LABS: Hematocrit 26.5 % (33.0-51.0); Hemoglobin 8.1 g/dL (11.5-16.0); Mean Corpuscular HGB 30.9 pg (26.0-34.0); Mean Corpuscular HGB Conc 30.6 g/dL (31.5-36.5); Mean Corpuscular Volume 101 fL (80-100); Mean Platelet Volume 11.5 fL (9.1-12.4); Platelet Count 170 K/mm3 (150-400); RDW Coefficient Variation 17.2 % (11.7-14.2); RDW Standard Deviation 63.7 fL (35.1-46.3); Red Blood Cell Count 2.62 M/mm3 (3.80-5.20); White Blood Cell Count 19.06 K/mm3 (4.00-11.30)
[2022-01-25 13:59] LABS: Albumin, Blood 2.8 g/dL (3.4-5.0); Anion Gap 6 mmol/L (6-16); Blood Urea Nitrogen 12 mg/dL (8-24); Bun/Creatinine Ratio 13.9 (12.0-20.0); CO2, Blood 34 mmol/L (21-32); Calcium, Blood 7.6 mg/dL (8.5-10.1); Chloride, Blood 99 mmol/L (98-108); Creatinine, Blood 0.86 mg/dL (0.40-1.00); Glomerular Filtration Rate 71 (60-); Glucose, Blood 206 mg/dL (70-99); Phosphorus, Blood 3.8 mg/dL (2.5-4.9); Potassium, Blood 3.6 mmol/L (3.5-5.5); Sodium, Blood 139 mmol/L (136-145)
--- NOTE | 2022-01-25 18:29 | NUR ---
PT IS A/OX3, VERY LUMMI, PLEASANT AND COOPERATIVE. PT SLEPT ON AND OFF FOR MOST OF THE DAY. PT SBP'S IN THE 70'S TO 90'S RANGE T/O THE REMY. DR. MONDRAGON IS AWARE. THE PT WAS GIVEN MIDADRINE SCHEDULED. PT APPEARS TO BE BREATHING EASILY AT REST WITH O2 @ 4L/MIN VIA NC. THE PT WAS REPOSITIONED T/O THE DAY, CALL IGHT IN REACH. FAMILY IS AT THE BEDSIDE AT THIS TIME
--- NOTE | 2022-01-26 02:54 | NUR ---
PT WITH BP OF 63/46 [address] NOTIFIED [address] MENDES AND UPDATED HIM ON PT HX AND STATUS. RECEIVED ORDER FOR ONE TIME DOSE OF 10MG MIDODRINE PO X 1.
--- NOTE | 2022-01-26 06:46 | NUR ---
SHIFT SUMMARY A&O X 4. VSS. PT C/O LEFT FOOT PAIN 10/04. PAIN MANAGED WITH PRN OXY WITH GOOD RESULT. PT HAD BP OF 63/[address] MENDES NOTIFIED AND RECEIVED ONE TIME DOSE OF 10MG MIDODRINE FOR PT. RECHECKED BP AND WENT UP TO 84/61. PT HAD LARGE, LOOSE BM THIS SHIFT.
--- NOTE | 2022-01-26 12:41 | NUR ---
NURSE FROM [facility] DANUTA IS AT PT'S BEDSIDE TO DO A FACE TO FACE. RN AND NURSE DANUTA REVIEW PT'S MOST RECENT SPUTUM CULTURE WHICH IS NEGATIVE OF TODAY. TRANSPORT IS SCHEDULED FOR 1400 TODAY BACK TO [facility] VIA [facility] INTAKE IS SCHEDULED FOR 1500 AT [facility].
[2022-01-26] MEDS ORDERED: METO5A PO (13:45)
[2022-01-26] MEDS ORDERED: NYSTATIN15 GM TOP (13:45)
[2022-01-26] MEDS ORDERED: LEVO750 PO (13:46)
[2022-01-26] MEDS ORDERED: GUAI600T33 PO (13:48)
[2022-01-26] MEDS ORDERED: ONDA4ODT MM (13:55)
[2022-01-26] MEDS ORDERED: VISBIOME 112.51 EACH PO (13:56)
[2022-01-26] MEDS ORDERED: MIRALAX17 GM PO (13:56)
[2022-01-26] MEDS ORDERED: PHENERGAN25 MG PR (13:57)
--- NOTE | 2022-01-26 15:00 | NUR ---
pt was discharged from [facility] to the care of private ambulance company for transport to [facility]. Pt tolerated procedure well. She wore oxygen 4lpm via NC, was transferred to ambulance [facility] and transported back to [facility] with all personal belongings accompanied.
== END 2022-01-26 14:55 | disposition home or self-care (01) | DRG 871 ==
LOC: ER 22:44 → ERHOLD 01-19 03:23 → MEDS 01-19 03:23
PROVIDERS: Family Medicine; Internal Medicine; Student in an Organized Health Care Education/Training Program; ADMIT Internal Medicine
DX: B37.7 Candidal sepsis (principal); G92.8 Other toxic encephalopathy; J15.212 Pneumonia due to Methicillin resistant Staphylococcus aureus; J69.0 Pneumonitis due to inhalation of food and vomit; J44.0 Chronic obstructive pulmonary disease with (acute) lower respiratory infection; J96.11 Chronic respiratory failure with hypoxia; E86.0 Dehydration; J44.1 Chronic obstructive pulmonary disease with (acute) exacerbation; Z66 Do not resuscitate; Z51.5 Encounter for palliative care; K59.00 Constipation, unspecified; E11.43 Type 2 diabetes mellitus with diabetic autonomic (poly)neuropathy; R65.20 Severe sepsis without septic shock; K31.84 Gastroparesis; I25.10 Atherosclerotic heart disease of native coronary artery without angina pectoris; E11.51 Type 2 diabetes mellitus with diabetic peripheral angiopathy without gangrene; E87.6 Hypokalemia; E83.39 Other disorders of phosphorus metabolism; I10 Essential (primary) hypertension; E78.5 Hyperlipidemia, unspecified; M79.7 Fibromyalgia; I70.229 Atherosclerosis of native arteries of extremities with rest pain, unspecified extremity; Z20.822 Contact with and (suspected) exposure to COVID-19; Z95.5 Presence of coronary angioplasty implant and graft; Z86.73 Personal history of transient ischemic attack (TIA), and cerebral infarction without residual deficits; Z99.81 Dependence on supplemental oxygen; Z79.01 Long term (current) use of anticoagulants; Z87.440 Personal history of urinary (tract) infections; Z88.5 Allergy status to narcotic agent; Z88.8 Allergy status to other drugs, medicaments and biological substances; Z79.899 Other long term (current) drug therapy; Z79.52 Long term (current) use of systemic steroids; Z79.51 Long term (current) use of inhaled steroids; Z79.02 Long term (current) use of antithrombotics/antiplatelets; Z79.4 Long term (current) use of insulin; Z79.2 Long term (current) use of antibiotics; I25.2 Old myocardial infarction; Z86.19 Personal history of other infectious and parasitic diseases; Z90.710 Acquired absence of both cervix and uterus; Z90.721 Acquired absence of ovaries, unilateral; Z89.512 Acquired absence of left leg below knee; Z90.49 Acquired absence of other specified parts of digestive tract; Z98.890 Other specified postprocedural states; Z95.828 Presence of other vascular implants and grafts; Z87.891 Personal history of nicotine dependence
CPT/HCPCS: 0241U; 31720; 36415; 51702; 71046; 74018; 80053; 80069; 81001; 82803; 82947; 83605; 84145; 85025; 85027; 87040; 87070; 87086; 87205; 93005; 93010; 94640; 94644; 94664; 94667; 94668; 94760; 94762; 96360; 97110; 97161; 99285-25; A9270; J0696; J1956; J2405; J2765; J2930; J7030; J7060; J7120